=== PATIENT | male | born 1950 | race American Indian/Alaskan Native ===

== ENCOUNTER 2016-07-11 15:48 | Inpatient (IN) | payer MEDICARE, OTHER ==
--- NOTE | 2016-07-11 16:05 | ED PDOC ---
Arrival/HPI - General Time Seen by Provider: 07/11/16 16:01 Historian: Patient - History of Present Illness Narrative History of Present Illness (Text): 07/11/16 16:05 Sukhwinder Lester Jr. is a 66 year old male, whose past medical history includes cardiac stents, prostate cancer, hypertension, and high cholesterol, who presents to the emergency department complaining of persisting chest discomfort for 5 days. Patient states that he feel that "can't digest gas" and has tried drinking club soda, which makes him burp bringing little relief. Patient denies any nausea, vomiting, diarrhea, fever, cough, headache, dizziness, visual changes, urinary symptoms, leg swelling, or any other complaints at this time PMD: Dr. Singh Abalone Fisherman: Dr. Edilberto Johnson Time/Duration: < week Symptom Onset: Gradual Symptom Course: Unchanged Severity Level: Mild Activities at Onset: Rest Context: Home Past Medical History - Provider Review Nursing Documentation Reviewed: Yes - Infectious Disease Hx of Infectious Diseases: None - Tetanus Immunization Tetanus Immunization: Unknown - Cardiac Hx Cardiac Disorders: Yes Hx Hypertension: Yes - Pulmonary Hx Respiratory Disorders: No - Neurological Hx Neurological Disorder: No - HEENT Other/Comment: glasses. - Renal Hx Renal Disorder: No - Endocrine/Metabolic Hx Endocrine Disorders: No - Hematological/Oncological Hx Blood Disorders: No - Integumentary Hx Dermatological Disorder: No - Musculoskeletal/Rheumatological Hx Musculoskeletal Disorders: Yes Hx Osteoarthritis: Yes (legs) - Gastrointestinal Hx Gastrointestinal Disorders: No - Genitourinary/Gynecological Hx Genitourinary Disorders: Yes Hx Prostate Problems: Yes (prostate ca (under treatment)) - Psychiatric Hx Psychophysiologic Disorder: No Hx Substance Use: No - Surgical History Hx Coronary Stent: Yes - Anesthesia Hx Anesthesia: Yes Hx Anesthesia Reactions: No Hx Malignant Hyperthermia: No - Suicidal Assessment Feels Threatened In Home Enviroment: No Family/Social History - Physician Review Nursing Documentation Reviewed: Yes Family/Social History: No Known Family HX Smoking Status: Never Smoked Hx Alcohol Use: Yes Hx Substance Use: No Allergies/Home Meds Allergies/Adverse Reactions: Allergies enalapril Allergy (Verified 07/11/16 16:05) ANGIOEDEMA Home Medications: Home Meds Medication Instructions Recorded Confirmed Atorvastatin [Lipitor] 06/09/14 06/09/14 Carvedilol 12.5 mg PO DAILY 06/09/14 06/15/14 Isosorbide Mononitrate 06/09/14 06/15/14 Multivit,Iron,Min 5/Folic Acid 06/09/14 06/15/14 [Strovite Forte] Spironolactone 25 mg PO DAILY 06/09/14 06/15/14 Tamsulosin [Flomax] 0.4 mg PO DAILY 06/09/14 06/15/14 hydrALAZINE [Apresoline] 25 mg PO DAILY 06/09/14 06/15/14 Review of Systems - Physician Review All systems were reviewed & negative as marked: Yes - Review of Systems Constitutional: absent: Fevers, Night Sweats Eyes: absent: Vision Changes ENT: absent: Hearing Changes Respiratory: absent: SOB, Cough Cardiovascular: Chest Pain (Chest discomfort) Gastrointestinal: absent: Abdominal Pain Genitourinary Male: absent: Urinary Output Changes Musculoskeletal: absent: Arthralgias, Back Pain, Neck Pain Skin: absent: Rash, Pruritis Neurological: absent: Headache, Dizziness Endocrine: absent: Diaphoresis Hemo/Lymphatic: absent: Easy Bleeding Psychiatric: absent: Depression Physical Exam Vital Signs Reviewed: Yes Vital Signs Temp Pulse Resp BP Pulse Ox 07/11/16 17:30 93 H 146/90 07/11/16 17:22 95 H 166/96 H 07/11/16 16:30 101 H 154/102 H 07/11/16 15:59 98.4 F 111 H 15 197/114 H 97 Temperature: Afebrile Blood Pressure: Hypertensive Pulse: Tachycardic Respiratory Rate: Normal Appearance: Positive for: Uncomfortable, Other (obese) Pain Distress: Moderate Mental Status: Positive for: Alert and Oriented X 3 - Systems Exam Head: Present: Atraumatic, Normocephalic Pupils: Present: PERRL Conjunctiva: Present: Normal Mouth: Present: Moist Mucous Membranes Pharnyx: Present: Normal. No: ERYTHEMA, EXUDATE Neck: Present: Normal Range of Motion Respiratory/Chest: Present: Clear to Auscultation, Good Air Exchange. No: Respiratory Distress, Accessory Muscle Use Cardiovascular: Present: Regular Rate and Rhythm, Normal S1, S2, Tachycardic. No: Murmurs Abdomen: Present: Normal Bowel Sounds. No: Tenderness, Distention, Peritoneal Signs Back: Present: Normal Inspection Upper Extremity: Present: Normal Inspection. No: Cyanosis, Edema Lower Extremity: Present: Normal Inspection. No: Edema Neurological: Present: GCS=15, CN II-XII Intact, Speech Normal Skin: Present: Warm, Dry, Normal Color. No: Rashes Psychiatric: Present: Alert, Oriented x 3, Normal Insight, Normal Concentration Medical Decision Making ED Course and Treatment: 07/11/16 16:03 Impression: 66 year old male complaining of persistent chest discomfort for 5 days. Differential Diagnosis included but are not limited to: ACS vs. GERD vs. CHF Plan: -- EKG -- Chest X-ray -- Urinalysis -- Labs -- Pepcid, Lopressor, and Nitrostat -- Reassess and disposition Prior Visits: Notes and results from previous visits were reviewed. Patient last seen in the ED on 11/09/14 for right great toe pain, swelling, and erythema. Patient was discharged home. Progress Notes: EKG: Ordered, reviewed, and independently interpreted the EKG. Rate : 116 BPM Rhythm : Sinus Tachycardia Interpretation : QRS of 114. RI of 240. 1st degree AV block. Left axis deviation with a left anterior vesicular block. Comparison : No ST-T changes compared to 06/09/14 07/11/16 16:40 Patient reports no improvement of chest pain after SL nitro and pepcid. Concern for possible unstable angina. 07/11/16 17:10 Patient with positive cardiac enzyme at 0.62 and now on tridil drip for chest pain. Findings consistent with NSTEMI. Started on heparin drip. 07/11/16 17:[address] Briones, covering Dr. Cortés, who agreed with treatment and plan. Recommends patient to be place into ICU. Case discussed with Dr. Coon for possible admission to ICU. Case discussed with Dr. Guerrero for admission of patient to his service. 07/11/16 18:26 Patient accepted for ICU admission. - Lab Interpretations Lab Results: 07/11/16 16:10 07/11/16 16:10 Lab Results 07/11/16 16:10: Sodium 141, Potassium 3.5 L, Chloride 100, Carbon Dioxide 30, Anion Gap 15, BUN 11, Creatinine 0.9, Est GFR ( Amer) > 60, Est GFR (Non- Af Amer) > 60, Random Glucose 158 H, Calcium 9.5, Magnesium 1.8, Total Bilirubin 1.1, AST 33, ALT 26, Alkaline Phosphatase 79, Lactate Dehydrogenase 516, Total Creatine Kinase 103, Troponin I 0.62 H*, NT-Pro-B Natriuret Pep 1340 H, Total Protein 8.2, Albumin 4.3, Globulin 4.0, Albumin/Globulin Ratio 1.1, Lipase 45 07/11/16 16:10: PT 10.4, INR 0.96, APTT 27.9 07/11/16 16:10: WBC 7.6, RBC 4.11, Hgb 12.6 L, Hct 36.8 L, MCV 89.5, MCH 30.7, MCHC 34.2, RDW 15.1 H, Plt Count 283, MPV 10.3, Gran % 76.6 H, Lymph % (Auto) 17.4 L, Avery % (Auto) 5.2, Eos % (Auto) 0.5 L, Baso % (Auto) 0.3, Gran # 5.85, Lymph # 1.3, Avery # 0.4, Eos # 0.0, Baso # 0.02 - RAD Interpretation Radiology Orders: 07/11/16 16:13 CHEST PORTABLE [RAD] Stat - Medication Orders Current Medication Orders: Heparin Sodium/Sodium Chloride (Heparin 21010 Units/250ml 1/2 Normal Saline) 25 ,000 units in 250 mls @ 11.158 mls/hr IV .[id number] JOSE; 12 UNITS/KG/HR PRN Reason: Protocol Last Admin: 07/11/16 17:47 Dose: 11.158 mls/hr Nitroglycerin/Dextrose (Nitroglycerin 50 Mg/250 Ml D5w) 50 mg in 250 mls @ 1.5 mls/hr IV .Q24H PRN; Protocol; 5 MCG/MIN PRN Reason: Chest pain Last Admin: 07/11/16 17:22 Dose: 1.5 mls/hr Discontinued Medications Al Hydrox/Mg Hydrox/Simethicone (Maalox Plus 30 Ml) 30 ml PO STAT STA Stop: 07/11/16 16:59 Last Admin: 07/11/16 17:30 Dose: 30 ml Aspirin (Aspirin Chewable) 324 mg PO STAT STA Stop: 07/11/16 18:00 Atorvastatin Calcium (Lipitor) 40 mg PO STAT STA Stop: 07/11/16 17:37 Clopidogrel Bisulfate (Plavix) 300 mg PO STAT STA Stop: 07/11/16 17:37 Famotidine (Pepcid) 20 mg IVP STAT STA Stop: 07/11/16 16:15 Last Admin: 07/11/16 16:30 Dose: 20 mg Furosemide (Lasix) 40 mg IVP STAT STA Stop: 07/11/16 17:37 Heparin Sodium (Porcine) (Heparin) 6,500 units 70 units/kg (6500 units) IV ONCE ONE PRN Reason: Protocol Stop: 07/11/16 17:05 Last Admin: 07/11/16 17:30 Dose: 6,500 units Metoprolol Tartrate (Lopressor) 5 mg IVP STAT STA Stop: 07/11/16 16:15 Last Admin: 07/11/16 16:30 Dose: 5 mg Metoprolol Tartrate (Lopressor) 25 mg PO STAT STA Stop: 07/11/16 16:40 Last Admin: 07/11/16 17:30 Dose: 25 mg Metoprolol Tartrate (Lopressor) 25 mg PO BID STA Stop: 07/11/16 17:37 Last Admin: 07/11/16 17:51 Dose: Nitroglycerin (Nitrostat Sl Tab) Confirm Administered Dose 0.4 mg SL .STK-MED ONE Stop: 07/11/16 16:12 Last Admin: 07/11/16 16:19 Dose: 0.4 mg Nitroglycerin (Nitrostat Sl Tab) 0.4 mg SL STAT STA Stop: 07/11/16 16:15 Last Admin: 07/11/16 16:19 Dose: Potassium Chloride (Potassium Chloride Oral Soln) 40 meq PO STAT STA Stop: 07/11/16 17:07 Last Admin: 07/11/16 17:30 Dose: 40 meq - Scribe Statement The provider has reviewed the documentation as recorded by the Penelope Rose Provider Scribe Attestation: All medical record entries made by the Scribe were at my direction and personally dictated by me. I have reviewed the chart and agree that the record accurately reflects my personal performance of the history, physical exam, medical decision making, and the department course for this patient. I have also personally directed, reviewed, and agree with the discharge instructions and disposition. Disposition/Present on Arrival - Present on Arrival Any Indicators Present on Arrival: No History of DVT/PE: No History of Uncontrolled Diabetes: No Urinary Catheter: No History Surgical Site Infection Following: None - Disposition Have Diagnosis and Disposition been Completed?: Yes Diagnosis: Non-STEMI (non-ST elevated myocardial infarction) Disposition: HOSPITALIZED Disposition Time: 17:58 Patient Plan: Admission, ICU Condition: CRITICAL Referrals: Charo Singh MD [Primary Care Provider] - Follow up with primary
[2016-07-11] MEDS ORDERED: Metoprolol 1 mg/ml Inj IVP STA (16:14)
[2016-07-11 16:20] LABS: ADD MANUAL DIFF? NO
[2016-07-11 16:33] LABS: BASO # 0.02 K/mm3 (0.0-2.0); BASO % 0.3 % (0.0-3.0); EOS % 0.5 % (1.5-5.0); GRAN # 5.85 (1.4-6.5); GRAN % 76.6 % (50.0-68.0); HEMATOCRIT 36.8 % (42.0-52.0); LYMPH # 1.3 (1.2-3.4); LYMPH % 17.4 % (22.0-35.0); MEAN CELL VOLUME 89.5 fL (80.0-105.0); MEAN CORPUSCULAR HEMOGLOBIN 30.7 pg (25.0-35.0); MEAN CORPUSCULAR HGB CONC 34.2 g/dl (31.0-37.0); MEAN PLATELET VOLUME 10.3 fl (7.0-11.0); MONO # 0.4 (0.1-0.6); MONO % 5.2 % (1.0-6.0); PLATELET COUNT 283 10^3/uL (120.0-450.0); RED CELL DISTRIBUTION WIDTH 15.1 % (11.5-14.5); WHITE BLOOD COUNT 7.6 10^3/ul (4.5-11.0)
[2016-07-11 16:37] LABS: ALB/GLOB RATIO 1.1 (1.1-1.8); ALKALINE PHOSPHATASE 79 U/L (38-133); ALT/SGPT 26 U/L (7-56); AST/SGOT 33 U/L (15-59); BILIRUBIN,TOTAL 1.1 mg/dL (0.2-1.3); BLOOD UREA NITROGEN 11 mg/dL (7-21); CALCIUM 9.5 mg/dL (8.4-10.5); CARBON DIOXIDE 30 mmol/L (21-33); CHLORIDE 100 mmol/L (98-107); GFR AFRICAN-AMERICAN > 60; GLUCOSE,RANDOM 158 mg/dL (70-110); LIPASE 45 U/L (23-300); MAGNESIUM 1.8 mg/dL (1.7-2.2); POTASSIUM 3.5 mmol/L (3.6-5.0); SODIUM 141 mmol/L (132-148); TOTAL PROTEIN 8.2 g/dL (5.8-8.3)
[2016-07-11 16:40] LABS: INR 0.96 (0.93-1.08); PARTIAL THROMBOPLASTIN TIME 27.9 Seconds (23.7-30.8)
[2016-07-11] MEDS ORDERED: Nitroglycerin 2% Ointment Foilpak UD TOP STA (16:40)
[2016-07-11] MEDS ORDERED: Alum-Mag Hydrox-Simethicone Susp (30 mL) PO STA (16:58)
[2016-07-11 16:59] LABS: TROPONIN I 0.62 ng/mL
[2016-07-11] MEDS ORDERED: Nitroglycerin 50mg in D5W 50 MG/250 ML BOTTLE IV PRN (17:05)
[2016-07-11] MEDS ORDERED: Potassium Chloride 40 mEq/30 ml LIQ UD PO STA (17:06)
[2016-07-11] MEDS ORDERED: Heparin25000 units/250ml 1/2NS 25,000 UNITS/250 ML BAG IV SCH (17:15)
--- NOTE | 2016-07-11 17:45 | CP.PCM.HP ---
<Melisa Orta - Last Filed: 07/12/16 06:35> History of Present Illness - History of Present Illness History of Present Illness: CC: I have gas pain Patient is a 66 y/o AAF with PMH of htn, CAD with 1 stent, chf, prostate ca s/p radiation, CHETAN ( home bipap), hld presenting with chest discomfort for the past 5 days. Patient states the chest discomfort is like gas pain, radiates to the right shoulder and left shoulder. Denies radiation to the back or arm. Patient states currently he doesn't have chest discomfort. Patient states last he felt the "gas" like pain in the midsternal area, then on Sunday, he went to see his advertising sales consultant. The advertising sales consultant did ekg, and check BP and told him to come back for further testing this week. The chest pain transiently resolved up until this Am after having tea and toast he felt the chest discomfort again. Reports he gets sob after walking 1 block, and have difficulty climbing stairs. Denies pillow orthopnea, denies palpitation, fever, chills, n/v/d, denies dysurea, or increased frequency. Admits to hesitancy. PMH: htn, CHF, bph, CAD with 1 stent 3 years ago, prostate ca s/p radiation, CHETAN ( uses home bipap), hld. PSH: cardiac stet 3 yrs ago [facility]: Admits to cardiac and htn history in the family. Social: former pack a day smoker , quit 4 years ago. Denies alcohol or illicit drug use. Lives with spouse. Allergy: Enalapril ( angioedema) Present on Admission - Present on Admission Any Indicators Present on Admission: No History of DVT/PE: No History of Uncontrolled Diabetes: No Urinary Catheter: No Decubitus Ulcer Present: No Review of Systems - Review of Systems All systems: reviewed and no additional remarkable complaints except - Constitutional Constitutional: As Per HPI - EENT Eyes: As Per HPI Nose/Mouth/Throat: As Per HPI - Cardiovascular Cardiovascular: As Per HPI - Respiratory Respiratory: As Per HPI - Gastrointestinal Gastrointestinal: As Per HPI - Genitourinary Genitourinary: As Per HPI - Reproductive: Male Reproductive:Male: As Per HPI - Musculoskeletal Musculoskeletal: As Per HPI - Integumentary Integumentary: As Per HPI - Psychiatric Psychiatric: As Per HPI - Endocrine Endocrine: As Per HPI - Hematologic/Lymphatic Hematologic: As Per HPI Past Patient History - Infectious Disease Hx of Infectious Diseases: None - Tetanus Immunizations Tetanus Immunization: Unknown - Past Medical History & Family History Past Medical History?: Yes - Past Social History Smoking Status: Former Smoker Alcohol: None Drugs: Denies Home Situation {Lives}: With Family - CARDIAC Hx Cardiac Disorders: Yes Hx Hypertension: Yes - PULMONARY Hx Respiratory Disorders: No - NEUROLOGICAL Hx Neurological Disorder: No - HEENT Other/Comment: glasses. - RENAL Hx Chronic Kidney Disease: No - ENDOCRINE/METABOLIC Hx Endocrine Disorders: No - HEMATOLOGICAL/ONCOLOGICAL Hx Blood Disorders: No - INTEGUMENTARY Hx Dermatological Problems: No - MUSCULOSKELETAL/RHEUMATOLOGICAL Hx Musculoskeletal Disorders: Yes Hx Osteoarthritis: Yes (legs) - GASTROINTESTINAL Hx Gastrointestinal Disorders: No - GENITOURINARY/GYNECOLOGICAL Hx Genitourinary Disorders: Yes Hx Prostate Problems: Yes (prostate ca (under treatment)) - PSYCHIATRIC Hx Psychophysiologic Disorder: No Hx Substance Use: No - SURGICAL HISTORY Hx Coronary Stent: Yes - ANESTHESIA Hx Anesthesia: Yes Hx Anesthesia Reactions: No Hx Malignant Hyperthermia: No Meds Allergies/Adverse Reactions: Allergies Allergy/AdvReac Type Severity Reaction Status Date / Time enalapril Allergy ANGIOEDEMA Verified 07/11/16 16:05 Physical Exam - Constitutional Appears: No Acute Distress - Head Exam Head Exam: ATRAUMATIC, NORMAL INSPECTION, NORMOCEPHALIC - Eye Exam Eye Exam: Normal appearance, PERRL. absent: Scleral icterus - ENT Exam ENT Exam: Mucous Membranes Dry - Neck Exam Neck exam: Positive for: Normal Inspection - Respiratory Exam Respiratory Exam: Clear to Auscultation Bilateral, Rales, NORMAL BREATHING PATTERN. absent: Rhonchi, Wheezes, Stridor - Cardiovascular Exam Cardiovascular Exam: Tachycardia, REGULAR RHYTHM, RRR, +S1, +S2. absent: JVD, Rubs, Systolic Murmur - GI/Abdominal Exam GI & Abdominal Exam: Normal Bowel Sounds, Soft. absent: Distended, Firm, Guarding, Rebound, Rigid, Tenderness - Extremities Exam Extremities exam: Positive for: pedal edema. Negative for: tenderness - Back Exam Back exam: NORMAL INSPECTION - Neurological Exam Neurological exam: Alert, Oriented x3 - Psychiatric Exam Psychiatric exam: Normal Affect, Normal Mood - Skin Skin Exam: Dry, Intact, Normal Color, Warm Results - Vital Signs Recent Vital Signs: Last Vital Signs Temp 98.4 F 07/11/16 15:59 Pulse 95 H 07/11/16 17:22 Resp 15 07/11/16 15:59 BP 166/96 H 07/11/16 17:22 Pulse Ox 97 07/11/16 15:59 - Labs Result Diagrams: 07/11/16 16:10 07/11/16 16:10 Labs: Laboratory Results - last 24 hr 07/11/16 07/11/16 07/11/16 16:10 16:10 16:10 WBC 7.6 RBC 4.11 Hgb 12.6 L Hct 36.8 L MCV 89.5 MCH 30.7 MCHC 34.2 RDW 15.1 H Plt Count 283 MPV 10.3 Gran % 76.6 H Lymph % (Auto) 17.4 L [facility] % (Auto) 5.2 Eos % (Auto) 0.5 L Baso % (Auto) 0.3 Gran # 5.85 Lymph # 1.3 [facility] # 0.4 Eos # 0.0 Baso # 0.02 PT 10.4 INR 0.96 APTT 27.9 Sodium 141 Potassium 3.5 L Chloride 100 Carbon Dioxide 30 Anion Gap 15 BUN 11 Creatinine 0.9 Est GFR ( Amer) > 60 Est GFR (Non-Af Amer) > 60 Random Glucose 158 H Calcium 9.5 Magnesium 1.8 Total Bilirubin 1.1 AST 33 ALT 26 Alkaline Phosphatase 79 Lactate Dehydrogenase 516 Total Creatine Kinase 103 Troponin I 0.62 H* NT-Pro-B Natriuret Pep 1340 H Total Protein 8.2 Albumin 4.3 Globulin 4.0 Albumin/Globulin Ratio 1.1 Lipase 45 - EKG Data EKG Interpreted by: Myself (1st degree av block, anterior infarct, lateral ischemia) Rate: Tachycardia Assessment & Plan - Assessment and Plan (Free Text) Assessment: Patient is a 66 y/o AAF with PMH of htn, CAD with 1 stent, prostate ca s/p radiation, CHETAN ( home bipap), hld presenting with chest discomfort for the past 5 days. EKG revealed lateral lead ischemia, troponin elevated. Plan: 1) NSTEMI - Troponin x1 elevated, will continue to trend, - EKG with sinus tachycardia with 1st degree av block, LAFB, anterior infarct and lateral lead ischemia. - Echo ordered, - on nitro drip - on heparin drip - cardio consult -s/p plavix loading dose, asa loading dose - continue po asa 81 mg daily, continue plavix 75 mg daily. - will obtain lipid panel and hgba1c. - npo for possible cardiac cath tomorrow. 2) Hypokalemia- will replete 3) Sleep apnea- BIPAP at night 4) CHF- will continue hydralazine, imdur, spinorolactone, and coreg. 5) BPH- continue flomax. 6) DVT and Gi prophylaxis- protonix and on heparin drip. Patient seen, examined, case discussed with Dr Guerrero. - Date & Time Date: 07/11/16 Time: 17:40 <Mckay Guerrero - Last Filed: 07/28/16 18:45> Results - Vital Signs Recent Vital Signs: Last Vital Signs Temp 98.5 F 07/13/16 06:00 Pulse 77 07/13/16 15:00 Resp 26 H 07/13/16 15:00 BP 128/71 07/13/16 14:01 Pulse Ox 92 L 07/13/16 14:01 - Labs Result Diagrams: 07/13/16 05:30 07/13/16 05:30 Attending/Attestation - Attestation I have personally seen and examined this patient.: Yes I have fully participated in the care of the patient.: Yes I have reviewed all pertinent clinical information: Yes Notes (Text): 07/28/16 18:45 Medical record note made by the resident after discussion with my direction and input after the patient was personally seen and examined by me. I have reviewed the chart and agree that the record accurately reflects by personal performance of the history, physical exam, data review, and medical decision-making, in the course for the patient. I have also personally directed the plan of care.
[2016-07-11 19:35] LABS: PH,URINE 6.5 (4.7-8.0); URINE BILIRUBIN NEGATIVE (NEGATIVE); URINE BLOOD TRACE-LYSED (NEGATIVE); URINE GLUCOSE (UA) NEGATIVE (NEGATIVE); URINE KETONE 15 mg/dL (NEGATIVE); URINE LEUKOCYTE ESTERASE NEGATIVE Leu/uL (NEGATIVE); URINE PROTEIN TRACE mg/dL (<30 mg/dL); URINE UROBILINOGEN 0.2 E.U./dL (<1 E.U./dL)
[2016-07-11 19:39] LABS: URINE APPEARANCE CLEAR (CLEAR); URINE COLOR YELLOW (YELLOW)
[2016-07-11 19:47] LABS: URINE WBC 0 - 2 /hpf (0-6)
--- NOTE | 2016-07-11 19:49 | CON ---
DATE: 07/11/2016 HISTORY OF PRESENT ILLNESS: The patient is a 66-year-old gentleman with history of hyperlipidemia, systolic LV dysfunction/CHF, hypertension who presented with about a week long duration of epigastric discomfort/ indigestion and chest tightness radiating to the right shoulder and sometimes to the back. It was a pressure-like sensation as the patient describes it, associated with some shortness of breath. Each episode lasts for about half an hour or so and then abated only to return shortly thereafter. The episodes were getting more frequent, more significant and culminated in the patient's admission to [facility] ER for further management and evaluation. The patient continued to have chest tightness and nitroglycerin drip was started. EKG showed sinus tachycardia with some questionable anterior left fascicular block. Troponin came back positive and ICU was called for non-ST elevated NC/acute coronary syndrome in the setting of ongoing chest pain. No nausea, no vomiting, no diarrhea, no constipation, no fever, no chills, no sweats. PAST MEDICAL HISTORY: Hypertension, hypercholesterolemia, left ventricular systolic dysfunction, coronary artery disease. ALLERGIES: Enalapril. FAMILY HISTORY: Noncontributory. SOCIAL HISTORY: The patient is an ex-smoker. No alcohol or illicit drug abuse. REVIEW OF SYSTEMS: Revealed 12 organ system other than mentioned in history of present illness is negative. MEDICATIONS: Hydralazine 25 mg p.o. daily, Flomax, spironolactone 25 mg p.o. daily, multivitamins, isosorbide mononitrate, Motrin, Coreg, Lipitor. PHYSICAL EXAMINATION: VITAL SIGNS: Heart rate 92, temperature 98.4, blood pressure 157/103, respiratory rate 17, oxygen saturation 100% on 2 liters nasal cannula. HEAD AND NECK: Atraumatic. LUNGS: Clear to auscultation bilaterally. HEART: Regular rate and rhythm. S1, S2 normal. ABDOMEN: Soft, nontender, nondistended. MUSCULOSKELETAL: No C/C/E. NEUROLOGIC: The patient moves all extremities spontaneously. SKIN: Moist. PSYCHIATRIC: The patient is alert and oriented x 3. LABORATORY DATA: WBC 7.6, hemoglobin 12.6, platelet count 283. Sodium 141, potassium 3.5, chloride 100, carbon dioxide 30, BUN 11, creatinine 0.9, glucose 158, AST 33, ALT 26. Troponin 0.62, proBNP 1340. INR 0.96. Chest x-ray showed no active pulmonary disease. ASSESSMENT AND PLAN: This is a 66-year-old gentleman with non-ST elevated NC/ ACS in the setting of ongoing chest pain. At present time, I agree with nitroglycerin, beta blockers, statins, therapeutic anticoagulation and dual antiplatelet therapy. The patient would need cardiac evaluation for consideration of coronary angiography and potentially PCI. We will continue to target euvolemia, euglycemia, normothermia and oxygen saturation more than 90%. We will continue with DVT and GI prophylaxis. Echocardiogram. ccm time 40 min Bunny Coon MD cc: [id number] TT: 07/11/2016 19:49:04 Confirmation # [id number] Dictation # [id number]
[2016-07-11 22:01] VITALS: BMI 33.5
[2016-07-11] MEDS ORDERED: Pneumococcal 23-Valent Vaccine IM ONE (22:02)
--- NOTE | 2016-07-12 01:31 | CARD ---
APPROVED REPORT EKG Measurement Heart [id number] <Conclusion> Sinus tachycardia with 1st degree AV block Left anterior fascicular block Cannot rule out Anterior infarct, age undetermined ST & T wave abnormality, consider lateral ischemia Abnormal ECG
[2016-07-12 02:10] LABS: TROPONIN I 7.69 ng/mL
--- NOTE | 2016-07-12 06:40 | CP.PCM.PN ---
<Melisa Orta - Last Filed: 07/12/16 15:42> Subjective - Date & Time of Evaluation Date of Evaluation: 07/12/16 Time of Evaluation: 07:15 - Subjective Subjective: Medicine progress note for Dr Lockhart and Dr Guerrero service Patient with no acute events overnight. Patient still on nitro drip and heparin drip. CP resolved. Denies sob while lying flat. Speaking in full sentences. Denies fever, chills, n/v/d. Objective - Vital Signs/Intake and Output Vital Signs (last 24 hours): Temp Pulse Resp BP Pulse Ox 99 F 86 22 158/92 H 92 L 07/12/16 04:00 07/12/16 05:00 07/12/16 05:00 07/12/16 05:31 07/12/16 05:31 Intake and Output: 07/11/16 07/12/16 18:59 06:59 Intake Total 300 Output Total 600 Balance -300 - Medications Medications: Current Medications Atorvastatin Calcium (Lipitor) 40 mg PO DIN COUNTS INCLUDE 234 BEDS AT THE [facility] Carvedilol (Coreg) 12.5 mg PO BID COUNTS INCLUDE 234 BEDS AT THE [facility] Clopidogrel Bisulfate (Plavix) 75 mg PO DAILY COUNTS INCLUDE 234 BEDS AT THE [facility] Hydralazine HCl (Apresoline) 25 mg PO DAILY COUNTS INCLUDE 234 BEDS AT THE [facility] Hydralazine HCl (Apresoline) 10 mg IVP Q4H PRN PRN Reason: Systolic Blood Pressure Heparin Sodium/Sodium Chloride (Heparin 14166 Units/250ml 1/2 Normal Saline) 25 ,000 units in 250 mls @ 11.158 mls/hr IV .[id number] JOSE; 12 UNITS/KG/HR PRN Reason: Protocol Last Titration: 07/12/16 01:22 Dose: 14 units/kg/hr, 13.018 mls/hr Nitroglycerin/Dextrose (Nitroglycerin 50 Mg/250 Ml D5w) 50 mg in 250 mls @ 1.5 mls/hr IV .Q24H PRN; Protocol; 5 MCG/MIN PRN Reason: Chest pain Last Titration: 07/12/16 01:01 Dose: 20 mcg/min, 6 mls/hr Isosorbide Mononitrate (Ismo) 20 mg PO BID COUNTS INCLUDE 234 BEDS AT THE [facility] Pantoprazole Sodium (Protonix Ec Tab) 40 mg PO 0630 COUNTS INCLUDE 234 BEDS AT THE [facility] Spironolactone (Aldactone) 25 mg PO DAILY COUNTS INCLUDE 234 BEDS AT THE [facility] Tamsulosin HCl (Flomax) 0.4 mg PO DAILY JOSE - Labs Labs: PT 10.4 Seconds (9.9-11.8) 07/11/16 16:10 INR 0.96 (0.93-1.08) 07/11/16 16:10 APTT 49.3 Seconds (23.7-30.8) H 07/12/16 05:30 - Constitutional Appears: No Acute Distress - Head Exam Head Exam: ATRAUMATIC, NORMAL INSPECTION, NORMOCEPHALIC - Eye Exam Eye Exam: Normal appearance, PERRL. absent: Scleral icterus - ENT Exam ENT Exam: Mucous Membranes Dry - Neck Exam Neck Exam: Normal Inspection - Respiratory Exam Respiratory Exam: Clear to Ausculation Bilateral, NORMAL BREATHING PATTERN. absent: Rales, Rhonchi, Wheezes, Respiratory Distress, Stridor - Cardiovascular Exam Cardiovascular Exam: REGULAR RHYTHM, RRR, +S1, +S2. absent: Irregular Rhythm, Murmur - GI/Abdominal Exam GI & Abdominal Exam: Soft, Normal Bowel Sounds. absent: Distended, Firm, Guarding, Rigid, Tenderness - Extremities Exam Extremities Exam: Normal Inspection - Back Exam Back Exam: NORMAL INSPECTION - Neurological Exam Neurological Exam: Alert, Awake, Oriented x3 - Psychiatric Exam Psychiatric exam: Normal Affect, Normal Mood - Skin Skin Exam: Dry, Intact, Normal Color, Warm Assessment and Plan - Assessment and Plan (Free Text) Assessment: Patient is a 66 y/o AAF with PMH of htn, CAD with 1 stent, prostate ca s/p radiation, CHETAN ( home bipap), hld presenting with chest discomfort for the past 5 days. EKG revealed lateral lead ischemia, troponin elevated x3. Going to cardiac cath today. Plan: 1) NSTEMI - Troponin and CKMB elevated x3 - EKG with sinus tachycardia with 1st degree av block, LAFB, anterior infarct and lateral lead ischemia. - Echo pending - on nitro drip - on heparin drip, to be held at noon. - LDL 188 - continue asa 81 mg daily, plavix 75 mg and Lipitor 40 mg. - scheduled for cardiac cath today 2) Newly diagnosed DM type 2 - hgba1c of 8.2 - will start ISS, accu checks achs. - diabetic aducation - patient will need at least a basal insulin prior to discharge. 3) Hypokalemia- will replete and continue to monitor. 4) Sleep apnea- BIPAP at night 5) CHF- will continue hydralazine, imdur, spinorolactone, and coreg. 5) BPH- continue flomax. 6) DVT and Gi prophylaxis- protonix and on heparin drip. Patient seen, examined, case discussed with Dr Guerrero. <Mckay Guerrero - Last Filed: 07/15/16 16:30> Objective - Vital Signs/Intake and Output Vital Signs (last 24 hours): Temp Pulse Resp BP Pulse Ox 98.5 F 77 26 H 128/71 92 L 07/13/16 06:00 07/13/16 15:00 07/13/16 15:00 07/13/16 14:01 07/13/16 14:01 - Labs Labs: 07/13/16 05:30 07/13/16 05:30 PT 10.4 Seconds (9.9-11.8) 07/11/16 16:10 INR 0.96 (0.93-1.08) 07/11/16 16:10 APTT 33.7 Seconds (23.7-30.8) H 07/12/16 18:38 Attending/Attestation - Attestation I have personally seen and examined this patient.: Yes I have fully participated in the care of the patient.: Yes I have reviewed all pertinent clinical information, including history, physical exam and plan: Yes Notes (Text): 07/15/16 16:30 Medical record note made by the resident after discussion with my direction and input after the patient was personally seen and examined by me. I have reviewed the chart and agree that the record accurately reflects by personal performance of the history, physical exam, data review, and medical decision-making, in the course for the patient. I have also personally directed the plan of care.
[2016-07-12 06:57] LABS: ADD MANUAL DIFF? NO
[2016-07-12 07:03] LABS: BASO # 0.02 K/mm3 (0.0-2.0); BASO % 0.2 % (0.0-3.0); EOS # 0.1 (0.0-0.7); EOS % 1.2 % (1.5-5.0); GRAN # 5.71 (1.4-6.5); LYMPH # 1.9 (1.2-3.4); MEAN CELL VOLUME 90.2 fL (80.0-105.0); MEAN CORPUSCULAR HEMOGLOBIN 29.8 pg (25.0-35.0); MEAN PLATELET VOLUME 9.8 fl (7.0-11.0); MONO # 0.7 (0.1-0.6); MONO % 8.6 % (1.0-6.0); PLATELET COUNT 258 10^3/uL (120.0-450.0); RED CELL DISTRIBUTION WIDTH 15.3 % (11.5-14.5); WHITE BLOOD COUNT 8.4 10^3/ul (4.5-11.0)
[2016-07-12 07:19] LABS: ALKALINE PHOSPHATASE 70 U/L (38-133); ALT/SGPT 31 U/L (7-56); AST/SGOT 90 U/L (15-59); BILIRUBIN,TOTAL 1.2 mg/dL (0.2-1.3); BLOOD UREA NITROGEN 12 mg/dL (7-21); CALCIUM 9.1 mg/dL (8.4-10.5); CARBON DIOXIDE 33 mmol/L (21-33); CHLORIDE 99 mmol/L (98-107); CHOLESTEROL 257 mg/dL (130-200); GFR AFRICAN-AMERICAN > 60; GLUCOSE,RANDOM 166 mg/dL (70-110); MAGNESIUM 1.8 mg/dL (1.7-2.2); POTASSIUM 3.6 mmol/L (3.6-5.0); SODIUM 140 mmol/L (132-148); TOTAL PROTEIN 7.7 g/dL (5.8-8.3)
--- NOTE | 2016-07-12 07:57 | CP.CCUPN ---
<Jacque Hebert - Last Filed: 07/12/16 10:10> CCU Subjective - Physician Review Events Since Last Encounter (Free Text): 07/12/16 07:55 stable overnight Subjective (Free Text): 07/12/16 07:55 Critical care progress note for Dr. Coon-Jacque Hebert, PGY-1 Pt S & E at bedside. Pt reports chest tightness overnight. Denies N/V/F/C, SOB, CP, palpitations, BURTON , vision changes, hx of GI bleed. Pt stable on heparin and nitroglycerin drips overnight. CCU Objective - Vital Signs / Intake & Output Vital Signs (Last 4 hours): Vital Signs Temp Pulse Resp BP Pulse Ox 07/12/16 05:31 158/92 H 92 L 07/12/16 05:00 86 22 156/95 H 96 07/12/16 04:30 78 27 H 153/88 H 97 07/12/16 04:00 99 F 70 21 137/71 93 L Intake and Output (Last 8hrs): Intake & Output 07/11/16 07/12/16 07/12/16 22:59 06:59 14:59 Intake Total 300 Output Total 600 Balance -300 Weight 94.075 kg 93.894 kg Intake: IV 200 Left Antecubital 130 Left Hand 60 Oral 100 Output: Urine 600 Urine, Voided 600 Other: Voiding Method Urinal # Voids Urine, Voided 3 # Bowel Movements 0 - Physical Exam Head: Positive for: Atraumatic, Normocephalic Pupils: Positive for: PERRL Extroacular Muscles: Positive for: EOMI Conjunctiva: Positive for: Normal Mouth: Positive for: Moist Mucous Membranes Pharnyx: Positive for: Normal. Negative for: ERYTHEMA, EXUDATE Neck: Positive for: Normal Range of Motion Respiratory/Chest: Positive for: Clear to Auscultation, Good Air Exchange. Negative for: Respiratory Distress, Accessory Muscle Use Cardiovascular: Positive for: Regular Rate and Rhythm, Normal S1, S2, Tachycardic. Negative for: Murmurs Abdomen: Positive for: Normal Bowel Sounds. Negative for: Tenderness, Distention, Peritoneal Signs Back: Positive for: Normal Inspection Upper Extremity: Positive for: Normal Inspection. Negative for: Cyanosis, Edema Lower Extremity: Positive for: Normal Inspection. Negative for: Edema, Tenderness, Swelling, Erythema Neurological: Positive for: GCS=15, CN II-XII Intact, Speech Normal Skin: Positive for: Warm, Dry, Normal Color. Negative for: Rashes Psychiatric: Positive for: Alert, Oriented x 3, Normal Insight, Normal Concentration - Medications Active Medications: Active Medications Generic Name Dose Route Start Last Admin Trade Name Freq PRN Reason Stop Dose Admin Aspirin 81 mg 07/12/16 10:00 Aspirin Chewable PO DAILY [facility] Atorvastatin Calcium 40 mg 07/12/16 17:00 Lipitor PO DIN [facility] Carvedilol 12.5 mg 07/12/16 10:00 Coreg PO BID [facility] Clopidogrel Bisulfate 75 mg 07/12/16 10:00 Plavix PO DAILY [facility] Hydralazine HCl 25 mg 07/12/16 10:00 Apresoline PO DAILY [facility] Hydralazine HCl 10 mg 07/11/16 21:42 Apresoline IVP Q4H PRN Systolic Blood Pressure Heparin Sodium/Sodium Chloride 25,000 units in 250 mls @ 11.158 mls/hr 17:15 07/12/16 01:22 Heparin 28604 Units/250ml 1/2 Normal Saline IV 14 units/kg/hr .[id number] JOSE 13.018 mls/hr Protocol Titration 12 UNITS/KG/HR Nitroglycerin/Dextrose 50 mg in 250 mls @ 1.5 mls/hr 07/11/16 17:05 07/12/16 01:01 Nitroglycerin 50 Mg/250 Ml D5w IV 20 mcg/min .Q24H PRN 6 mls/hr Chest pain Titration Protocol 5 MCG/MIN Isosorbide Mononitrate 20 mg 07/12/16 10:00 Ismo PO BID [facility] Pantoprazole Sodium 40 mg 07/12/16 06:30 Protonix Ec Tab PO 0630 [facility] Spironolactone 25 mg 07/12/16 10:00 Aldactone PO DAILY [facility] Tamsulosin HCl 0.4 mg 07/12/16 10:00 Flomax PO DAILY [facility] - Patient Studies Lab Studies: Lab Studies 07/12/16 07/12/16 07/12/16 Range/Units 06:50 06:50 05:30 WBC 8.4 (4.5-11.0) 10^3/ul RBC 4.10 (3.5-6.1) 10^6/uL Hgb 12.2 L (14.0-18.0) gm/dL Hct 37.0 L (42.0-52.0) % MCV 90.2 (80.0-105.0) fL MCH 29.8 (25.0-35.0) pg MCHC 33.0 (31.0-37.0) g/dl RDW 15.3 H (11.5-14.5) % Plt Count 258 (120.0-450.0) 10^3/uL MPV 9.8 (7.0-11.0) fl Gran % 68.0 (50.0-68.0) % Lymph % (Auto) 22.0 (22.0-35.0) % [place] % (Auto) 8.6 H (1.0-6.0) % Eos % (Auto) 1.2 L (1.5-5.0) % Baso % (Auto) 0.2 (0.0-3.0) % Gran # 5.71 (1.4-6.5) Lymph # 1.9 (1.2-3.4) [place]k # 0.7 H (0.1-0.6) Eos # 0.1 (0.0-0.7) Baso # 0.02 (0.0-2.0) K/mm3 APTT 49.3 H (23.7-30.8) Seconds Sodium 140 (132-148) mmol/L Potassium 3.6 (3.6-5.0) mmol/L Chloride 99 (98-107) mmol/L Carbon Dioxide 33 (21-33) mmol/L Anion Gap 12 (10-20) BUN 12 (7-21) mg/dL Creatinine 1.0 (0.5-1.4) mg/dL Est GFR ( Amer) > 60 Est GFR (Non-Af Amer) > 60 Random Glucose 166 H (70-110) mg/dL Calcium 9.1 (8.4-10.5) mg/dL Magnesium 1.8 (1.7-2.2) mg/dL Total Bilirubin 1.2 (0.2-1.3) mg/dL AST 90 H (15-59) U/L ALT 31 (7-56) U/L Alkaline Phosphatase 70 (38-133) U/L Lactate Dehydrogenase (333-699) U/L Total Creatine Kinase (35-230) U/L CK-MB (CK-2) (0.0-3.6) ng/mL CK-MB (CK-2) % (2.5-3.0) % Troponin I ng/mL Total Protein 7.7 (5.8-8.3) g/dL Albumin 3.9 (3.0-4.8) g/dL Globulin 3.8 gm/dL Albumin/Globulin Ratio 1.0 L (1.1-1.8) Triglycerides 150 (35-160) mg/dL Cholesterol 257 H (130-200) mg/dL LDL Cholesterol Direct 188 H (0-129) mg/dL HDL Cholesterol 43 (29-60) mg/dL Urine Color (YELLOW) Urine Appearance (CLEAR) Urine pH (4.7-8.0) Ur Specific [place] (1.005-1.035) Urine Protein (<30 mg/dL) mg/dL Urine Glucose (UA) (NEGATIVE) mg/dL Urine Ketones (NEGATIVE) mg/dL Urine Blood (NEGATIVE) Urine Nitrate (NEGATIVE) Urine Bilirubin (NEGATIVE) Urine Urobilinogen (<1 E.U./dL) E.U./dL Ur Leukocyte Esterase (NEGATIVE) Cordell/uL Urine RBC (0-2) /hpf Urine WBC (0-6) /hpf Ur Epithelial Cells (0-5) /hpf 07/12/16 07/12/16 07/11/16 Range/Units 00:15 00:15 19:20 WBC (4.5-11.0) 10^3/ul RBC (3.5-6.1) 10^6/uL Hgb (14.0-18.0) gm/dL Hct (42.0-52.0) % MCV (80.0-105.0) fL MCH (25.0-35.0) pg MCHC (31.0-37.0) g/dl RDW (11.5-14.5) % Plt Count (120.0-450.0) 10^3/uL MPV (7.0-11.0) fl Gran % (50.0-68.0) % Lymph % (Auto) (22.0-35.0) % [place] % (Auto) (1.0-6.0) % Eos % (Auto) (1.5-5.0) % Baso % (Auto) (0.0-3.0) % Gran # (1.4-6.5) Lymph # (1.2-3.4) [place]k # (0.1-0.6) Eos # (0.0-0.7) Baso # (0.0-2.0) K/mm3 APTT 36.6 H (23.7-30.8) Seconds Sodium (132-148) mmol/L Potassium (3.6-5.0) mmol/L Chloride (98-107) mmol/L Carbon Dioxide (21-33) mmol/L Anion Gap (10-20) BUN (7-21) mg/dL Creatinine (0.5-1.4) mg/dL Est GFR ( Amer) Est GFR (Non-Af Amer) Random Glucose (70-110) mg/dL Calcium (8.4-10.5) mg/dL Magnesium (1.7-2.2) mg/dL Total Bilirubin (0.2-1.3) mg/dL AST (15-59) U/L ALT (7-56) U/L Alkaline Phosphatase (38-133) U/L Lactate Dehydrogenase 624 (333-699) U/L Total Creatine Kinase 379 H (35-230) U/L CK-MB (CK-2) 37.0 H (0.0-3.6) ng/mL CK-MB (CK-2) % 9.8 H (2.5-3.0) % Troponin I 7.69 H* D ng/mL Total Protein (5.8-8.3) g/dL Albumin (3.0-4.8) g/dL Globulin gm/dL Albumin/Globulin Ratio (1.1-1.8) Triglycerides (35-160) mg/dL Cholesterol (130-200) mg/dL LDL Cholesterol Direct (0-129) mg/dL HDL Cholesterol (29-60) mg/dL Urine Color Yellow (YELLOW) Urine Appearance Clear (CLEAR) Urine pH 6.5 (4.7-8.0) Ur Specific [place] 1.015 (1.005-1.035) Urine Protein Trace H (<30 mg/dL) mg/dL Urine Glucose (UA) Negative (NEGATIVE) mg/dL Urine Ketones 15 H (NEGATIVE) mg/dL Urine Blood Trace-lysed H (NEGATIVE) Urine Nitrate Negative (NEGATIVE) Urine Bilirubin Negative (NEGATIVE) Urine Urobilinogen 0.2 (<1 E.U./dL) E.U./dL Ur Leukocyte Esterase Negative (NEGATIVE) Cordell/uL Urine RBC 2 - 5 (0-2) /hpf Urine WBC 0 - 2 (0-6) /hpf Ur Epithelial Cells 10 - 12 (0-5) /hpf Laboratory Results - last 24 hr 07/11/16 07/12/16 07/12/16 19:20 00:15 00:15 WBC RBC Hgb Hct MCV MCH MCHC RDW Plt Count MPV Gran % Lymph % (Auto) [place] % (Auto) Eos % (Auto) Baso % (Auto) Gran # Lymph # [place] # Eos # Baso # APTT 36.6 H Sodium Potassium Chloride Carbon Dioxide Anion Gap BUN Creatinine Est GFR ( Amer) Est GFR (Non-Af Amer) Random Glucose Calcium Magnesium Total Bilirubin AST ALT Alkaline Phosphatase Lactate Dehydrogenase 624 Total Creatine Kinase 379 H CK-MB (CK-2) 37.0 H CK-MB (CK-2) % 9.8 H Troponin I 7.69 H* D Total Protein Albumin Globulin Albumin/Globulin Ratio Triglycerides Cholesterol LDL Cholesterol Direct HDL Cholesterol Urine Color Yellow Urine Appearance Clear Urine pH 6.5 Ur Specific [place] 1.015 Urine Protein Trace H Urine Glucose (UA) Negative Urine Ketones 15 H Urine Blood Trace-lysed H Urine Nitrate Negative Urine Bilirubin Negative Urine Urobilinogen 0.2 Ur Leukocyte Esterase Negative Urine RBC 2 - 5 Urine WBC 0 - 2 Ur Epithelial Cells 10 - 12 07/12/16 07/12/16 07/12/16 05:30 06:50 06:50 WBC 8.4 RBC 4.10 Hgb 12.2 L Hct 37.0 L MCV 90.2 MCH 29.8 MCHC 33.0 RDW 15.3 H Plt Count 258 MPV 9.8 Gran % 68.0 Lymph % (Auto) 22.0 [place]k % (Auto) 8.6 H Eos % (Auto) 1.2 L Baso % (Auto) 0.2 Gran # 5.71 Lymph # 1.9 [place]k # 0.7 H Eos # 0.1 Baso # 0.02 APTT 49.3 H Sodium 140 Potassium 3.6 Chloride 99 Carbon Dioxide 33 Anion Gap 12 BUN 12 Creatinine 1.0 Est GFR ( Amer) > 60 Est GFR (Non-Af Amer) > 60 Random Glucose 166 H Calcium 9.1 Magnesium 1.8 Total Bilirubin 1.2 AST 90 H ALT 31 Alkaline Phosphatase 70 Lactate Dehydrogenase Total Creatine Kinase CK-MB (CK-2) CK-MB (CK-2) % Troponin I Total Protein 7.7 Albumin 3.9 Globulin 3.8 Albumin/Globulin Ratio 1.0 L Triglycerides 150 Cholesterol 257 H LDL Cholesterol Direct 188 H HDL Cholesterol 43 Urine Color Urine Appearance Urine pH Ur Specific [place] Urine Protein Urine Glucose (UA) Urine Ketones Urine Blood Urine Nitrate Urine Bilirubin Urine Urobilinogen Ur Leukocyte Esterase Urine RBC Urine WBC Ur Epithelial Cells EKG/Cardiology Studies: Cardiology / EKG Studies 07/12/16 07:00 EKG [ELECTROCARDIOGRAM] Routine Comment: Reason For Exam: NSTEMI Review of Systems - Review of Systems All systems: reviewed and no additional remarkable complaints except - Constitutional Constitutional: absent: Fever, Chills - EENT Eyes: UNREMARKABLE Nose/Mouth/Throat: UNREMARKABLE. absent: Sore Throat - Cardiovascular Cardiovascular: Chest Pain, Chest Pain at Rest, Chest Pain with Activity. absent: Edema, Leg Edema, Palpitations, Pedal Edema - Respiratory Respiratory: UNREMARKABLE. absent: Cough - Gastrointestinal Gastrointestinal: absent: Abdominal Pain, Hematemesis, Hematochezia, Melena, Nausea, Vomiting - Musculoskeletal Musculoskeletal: UNREMARKABLE. absent: Neck Pain, Radiating Pain into Limb - Neurological Neurological: UNREMARKABLE. absent: Headaches Critical Care Progress Note - Extremities/Vascular Does the Patient have a Central Venous Catheter?: No Does the Patient need a Central Venous Catheter?: No Does the Patient have a Barney Catheter?: No Does the Patient need a Barney Catheter?: No - Prophylaxis GI Prophylaxis GI: PPI - Prophylaxis DVT Prophylaxis DVT: Heparin SQ (drip) - Nutrition Nutrition: Nutrition Category Date Time Status NPO Diet [DIET] Diets 07/12/16 Breakfast Ordered Assessment/Plan - Assessment and Plan (Free Text) Assessment: 66M w/PMH sig for HTN, CHF, BPH, CAD w.stent x1 (2013) on ASA and Plavix at home , prostate CA s/p radiation, CHETAN ( uses home bipap), HLD admitted to ICU for unstable angina, on Heparin and nitroglycerin drip overnight. Pt for PCI today with cardiology at noon. Plan: Neuro AOx 3 Stable CVS hx CHF, HTN, CAD w/stent x 1 (2013), HLD Trop pos x 3 (0.62, 7.69, 14.4)- up trending BNP 1,340 ASA 81mg QD Lipitor 40mg DIN Coreg 12.5mg PO BID Plavix 75mg PO QD Imdur 20mg PO BID Aldactone 25mg Po QD Hydralazine 10mg IVP Q4H PRN Cont Heparin drip- to be stopped at 0930am today for PCI at noon Cont Nitro drip at 5mcg/min FU echo Cards consulted- pt for PCI at noon, Heparin drip to be held at noon Resp Hx CHETAN ( uses home bipap) O2 via NC Target SaO2 >94% Bipap PRN Stable Nephro BUN 12 Cr 1.0 Electrolytes WNL Montior Target euvolemia GI NPO for PCI today Will re-start HHD diet after procedure Monitor Hx BPH, prostate CA s/p radiation Flomax 0.4mg PO QD Monitor Endo BMI 93.9 BS 166 Target BS 140-180 per NICE sugar trial Heme Hgb 12.2 Hct 37 Currently on heparin drip- to be stopped at 0930 for procedure PTT 49.3 at 0530AM Stable Monitor MSK Ambulatory Monitor ID Afebrile No leukocytosis Stable Monitor GI/DVT ppx Heparin drip Protonix Dispo Heparin drip to be stopped at 0930 for PCI at noon Ntg drip to be stopped as per cardiology Will monitor in ICU s/p procedure DW attending - Date & Time Date: 07/12/16 Time: 07:30 <Bunny Coon - Last Filed: 07/12/16 17:36> CCU Objective - Vital Signs / Intake & Output Vital Signs (Last 4 hours): Vital Signs Temp Pulse Resp BP Pulse Ox 07/12/16 17:19 98.5 F 07/12/16 17:09 68 26 H 07/12/16 17:08 74 19 07/12/16 17:00 79 43 H 95 07/12/16 16:45 73 21 118/65 89 L 07/12/16 16:30 64 24 115/59 L 96 07/12/16 16:15 61 21 114/54 L 94 L 07/12/16 16:00 63 22 112/54 L 95 07/12/16 15:49 58 L 18 102/53 L 96 07/12/16 15:45 56 L 19 98/59 L 91 L 07/12/16 15:30 73 18 108/68 96 07/12/16 15:15 66 17 120/74 100 07/12/16 15:00 69 124/70 99 07/12/16 14:45 61 20 115/73 98 07/12/16 14:30 65 19 109/72 97 07/12/16 14:15 64 21 110/67 98 07/12/16 14:00 66 18 109/68 91 L 07/12/16 13:52 69 26 H 104/67 98 07/12/16 13:51 20 93 L Intake and Output (Last 8hrs): Intake & Output 07/12/16 07/12/16 07/12/16 06:59 14:59 22:59 Intake Total 300 125 Output Total 600 Balance -300 125 Weight 207 lb 204 lb 3 oz Intake: IV 200 125 Left Antecubital 130 Left Hand 60 Oral 100 Output: Urine 600 Urine, Voided 600 Other: # Voids Urine, Voided 3 # Bowel Movements 0 - Medications Active Medications: Active Medications Generic Name Dose Route Start Last Admin Trade Name Bensonq PRN Reason Stop Dose Admin Aspirin 81 mg 07/13/16 10:00 Ecotrin PO DAILY [facility] Atorvastatin Calcium 40 mg 07/12/16 17:00 Lipitor PO DIN [facility] Carvedilol 12.5 mg 07/12/16 10:00 07/12/16 08:48 Coreg PO 12.5 mg BID [facility] Administration Clopidogrel Bisulfate 75 mg 07/12/16 10:00 07/12/16 08:50 Plavix PO 75 mg DAILY [facility] Administration Hydralazine HCl 25 mg 07/12/16 10:00 07/12/16 08:50 Apresoline PO 25 mg DAILY [facility] Administration Hydralazine HCl 10 mg 07/11/16 21:42 Apresoline IVP Q4H PRN Systolic Blood Pressure Heparin Sodium/Sodium Chloride 25,000 units in 250 mls @ 11.158 mls/hr 17:15 07/12/16 09:26 Heparin 15343 Units/250ml 1/2 Normal Saline IV 0 units/kg/hr .[id number] JOSE 0 mls/hr Protocol Titration 12 UNITS/KG/HR Sodium Chloride 1,000 mls @ 100 mls/hr 07/12/16 13:45 07/12/16 02:15 Sodium Chloride 0.9% IV 07/12/16 19:00 100 mls/hr .Q10H JOSE Administration Insulin Human Lispro 0 units 07/12/16 16:30 Humalog Low SC ACHS [facility] Protocol Isosorbide Mononitrate 20 mg 07/12/16 10:00 07/12/16 14:58 Ismo PO Not Given BID [facility] Pantoprazole Sodium 40 mg 07/12/16 06:30 07/12/16 08:51 Protonix Ec Tab PO 40 mg 0630 [facility] Administration Spironolactone 25 mg 07/12/16 10:00 Aldactone PO DAILY [facility] Tamsulosin HCl 0.4 mg 07/12/16 10:00 07/12/16 08:49 Flomax PO 0.4 mg DAILY [facility] Administration - Patient Studies Lab Studies: Lab Studies 07/12/16 07/12/16 07/12/16 Range/Units 06:50 06:50 06:50 WBC 8.4 (4.5-11.0) 10^3/ul RBC 4.10 (3.5-6.1) 10^6/uL Hgb 12.2 L (14.0-18.0) gm/dL Hct 37.0 L (42.0-52.0) % MCV 90.2 (80.0-105.0) fL MCH 29.8 (25.0-35.0) pg MCHC 33.0 (31.0-37.0) g/dl RDW 15.3 H (11.5-14.5) % Plt Count 258 (120.0-450.0) 10^3/uL MPV 9.8 (7.0-11.0) fl Gran % 68.0 (50.0-68.0) % Lymph % (Auto) 22.0 (22.0-35.0) % [place] % (Auto) 8.6 H (1.0-6.0) % Eos % (Auto) 1.2 L (1.5-5.0) % Baso % (Auto) 0.2 (0.0-3.0) % Gran # 5.71 (1.4-6.5) Lymph # 1.9 (1.2-3.4) [place]k # 0.7 H (0.1-0.6) Eos # 0.1 (0.0-0.7) Baso # 0.02 (0.0-2.0) K/mm3 APTT (23.7-30.8) Seconds Sodium 140 (132-148) mmol/L Potassium 3.6 (3.6-5.0) mmol/L Chloride 99 (98-107) mmol/L Carbon Dioxide 33 (21-33) mmol/L Anion Gap 12 (10-20) BUN 12 (7-21) mg/dL Creatinine 1.0 (0.5-1.4) mg/dL Est GFR ( Amer) > 60 Est GFR (Non-Af Amer) > 60 Random Glucose 166 H (70-110) mg/dL Hemoglobin A1c 8.2 H (4.2-6.5) % Calcium 9.1 (8.4-10.5) mg/dL Magnesium 1.8 (1.7-2.2) mg/dL Total Bilirubin 1.2 (0.2-1.3) mg/dL AST 90 H (15-59) U/L ALT 31 (7-56) U/L Alkaline Phosphatase 70 (38-133) U/L Lactate Dehydrogenase (333-699) U/L Total Creatine Kinase (35-230) U/L CK-MB (CK-2) (0.0-3.6) ng/mL CK-MB (CK-2) % (2.5-3.0) % Troponin I ng/mL Total Protein 7.7 (5.8-8.3) g/dL Albumin 3.9 (3.0-4.8) g/dL Globulin 3.8 gm/dL Albumin/Globulin Ratio 1.0 L (1.1-1.8) Triglycerides 150 (35-160) mg/dL Cholesterol 257 H (130-200) mg/dL LDL Cholesterol Direct 188 H (0-129) mg/dL HDL Cholesterol 43 (29-60) mg/dL Urine Color (YELLOW) Urine Appearance (CLEAR) Urine pH (4.7-8.0) Ur Specific [place] (1.005-1.035) Urine Protein (<30 mg/dL) mg/dL Urine Glucose (UA) (NEGATIVE) mg/dL Urine Ketones (NEGATIVE) mg/dL Urine Blood (NEGATIVE) Urine Nitrate (NEGATIVE) Urine Bilirubin (NEGATIVE) Urine Urobilinogen (<1 E.U./dL) E.U./dL Ur Leukocyte Esterase (NEGATIVE) Cordell/uL Urine RBC (0-2) /hpf Urine WBC (0-6) /hpf Ur Epithelial Cells (0-5) /hpf 07/12/16 07/12/16 07/12/16 Range/Units 06:30 05:30 00:15 WBC (4.5-11.0) 10^3/ul RBC (3.5-6.1) 10^6/uL Hgb (14.0-18.0) gm/dL Hct (42.0-52.0) % MCV (80.0-105.0) fL MCH (25.0-35.0) pg MCHC (31.0-37.0) g/dl RDW (11.5-14.5) % Plt Count (120.0-450.0) 10^3/uL MPV (7.0-11.0) fl Gran % (50.0-68.0) % Lymph % (Auto) (22.0-35.0) % [place] % (Auto) (1.0-6.0) % Eos % (Auto) (1.5-5.0) % Baso % (Auto) (0.0-3.0) % Gran # (1.4-6.5) Lymph # (1.2-3.4) [place] # (0.1-0.6) Eos # (0.0-0.7) Baso # (0.0-2.0) K/mm3 APTT 49.3 H (23.7-30.8) Seconds Sodium (132-148) mmol/L Potassium (3.6-5.0) mmol/L Chloride (98-107) mmol/L Carbon Dioxide (21-33) mmol/L Anion Gap (10-20) BUN (7-21) mg/dL Creatinine (0.5-1.4) mg/dL Est GFR ( Amer) Est GFR (Non-Af Amer) Random Glucose (70-110) mg/dL Hemoglobin A1c (4.2-6.5) % Calcium (8.4-10.5) mg/dL Magnesium (1.7-2.2) mg/dL Total Bilirubin (0.2-1.3) mg/dL AST (15-59) U/L ALT (7-56) U/L Alkaline Phosphatase (38-133) U/L Lactate Dehydrogenase 721 H 624 (333-699) U/L Total Creatine Kinase 484 H 379 H (35-230) U/L CK-MB (CK-2) 38.2 H 37.0 H (0.0-3.6) ng/mL CK-MB (CK-2) % 7.9 H 9.8 H (2.5-3.0) % Troponin I 14.40 H* D 7.69 H* D ng/mL Total Protein (5.8-8.3) g/dL Albumin (3.0-4.8) g/dL Globulin gm/dL Albumin/Globulin Ratio (1.1-1.8) Triglycerides (35-160) mg/dL Cholesterol (130-200) mg/dL LDL Cholesterol Direct (0-129) mg/dL HDL Cholesterol (29-60) mg/dL Urine Color (YELLOW) Urine Appearance (CLEAR) Urine pH (4.7-8.0) Ur Specific [place] (1.005-1.035) Urine Protein (<30 mg/dL) mg/dL Urine Glucose (UA) (NEGATIVE) mg/dL Urine Ketones (NEGATIVE) mg/dL Urine Blood (NEGATIVE) Urine Nitrate (NEGATIVE) Urine Bilirubin (NEGATIVE) Urine Urobilinogen (<1 E.U./dL) E.U./dL Ur Leukocyte Esterase (NEGATIVE) Cordell/uL Urine RBC (0-2) /hpf Urine WBC (0-6) /hpf Ur Epithelial Cells (0-5) /hpf 07/12/16 07/11/16 Range/Units 00:15 19:20 WBC (4.5-11.0) 10^3/ul RBC (3.5-6.1) 10^6/uL Hgb (14.0-18.0) gm/dL Hct (42.0-52.0) % MCV (80.0-105.0) fL MCH (25.0-35.0) pg MCHC (31.0-37.0) g/dl RDW (11.5-14.5) % Plt Count (120.0-450.0) 10^3/uL MPV (7.0-11.0) fl Gran % (50.0-68.0) % Lymph % (Auto) (22.0-35.0) % [place] % (Auto) (1.0-6.0) % Eos % (Auto) (1.5-5.0) % Baso % (Auto) (0.0-3.0) % Gran # (1.4-6.5) Lymph # (1.2-3.4) [place] # (0.1-0.6) Eos # (0.0-0.7) Baso # (0.0-2.0) K/mm3 APTT 36.6 H (23.7-30.8) Seconds Sodium (132-148) mmol/L Potassium (3.6-5.0) mmol/L Chloride (98-107) mmol/L Carbon Dioxide (21-33) mmol/L Anion Gap (10-20) BUN (7-21) mg/dL Creatinine (0.5-1.4) mg/dL Est GFR ( Amer) Est GFR (Non-Af Amer) Random Glucose (70-110) mg/dL Hemoglobin A1c (4.2-6.5) % Calcium (8.4-10.5) mg/dL Magnesium (1.7-2.2) mg/dL Total Bilirubin (0.2-1.3) mg/dL AST (15-59) U/L ALT (7-56) U/L Alkaline Phosphatase (38-133) U/L Lactate Dehydrogenase (333-699) U/L Total Creatine Kinase (35-230) U/L CK-MB (CK-2) (0.0-3.6) ng/mL CK-MB (CK-2) % (2.5-3.0) % Troponin I ng/mL Total Protein (5.8-8.3) g/dL Albumin (3.0-4.8) g/dL Globulin gm/dL Albumin/Globulin Ratio (1.1-1.8) Triglycerides (35-160) mg/dL Cholesterol (130-200) mg/dL LDL Cholesterol Direct (0-129) mg/dL HDL Cholesterol (29-60) mg/dL Urine Color Yellow (YELLOW) Urine Appearance Clear (CLEAR) Urine pH 6.5 (4.7-8.0) Ur Specific [place] 1.015 (1.005-1.035) Urine Protein Trace H (<30 mg/dL) mg/dL Urine Glucose (UA) Negative (NEGATIVE) mg/dL Urine Ketones 15 H (NEGATIVE) mg/dL Urine Blood Trace-lysed H (NEGATIVE) Urine Nitrate Negative (NEGATIVE) Urine Bilirubin Negative (NEGATIVE) Urine Urobilinogen 0.2 (<1 E.U./dL) E.U./dL Ur Leukocyte Esterase Negative (NEGATIVE) Cordell/uL Urine RBC 2 - 5 (0-2) /hpf Urine WBC 0 - 2 (0-6) /hpf Ur Epithelial Cells 10 - 12 (0-5) /hpf Laboratory Results - last 24 hr 07/11/16 07/12/16 07/12/16 19:20 00:15 00:15 WBC RBC Hgb Hct MCV MCH MCHC RDW Plt Count MPV Gran % Lymph % (Auto) [place] % (Auto) Eos % (Auto) Baso % (Auto) Gran # Lymph # [place] # Eos # Baso # APTT 36.6 H Sodium Potassium Chloride Carbon Dioxide Anion Gap BUN Creatinine Est GFR ( Amer) Est GFR (Non-Af Amer) Random Glucose Hemoglobin A1c Calcium Magnesium Total Bilirubin AST ALT Alkaline Phosphatase Lactate Dehydrogenase 624 Total Creatine Kinase 379 H CK-MB (CK-2) 37.0 H CK-MB (CK-2) % 9.8 H Troponin I 7.69 H* D Total Protein Albumin Globulin Albumin/Globulin Ratio Triglycerides Cholesterol LDL Cholesterol Direct HDL Cholesterol Urine Color Yellow Urine Appearance Clear Urine pH 6.5 Ur Specific [place] 1.015 Urine Protein Trace H Urine Glucose (UA) Negative Urine Ketones 15 H Urine Blood Trace-lysed H Urine Nitrate Negative Urine Bilirubin Negative Urine Urobilinogen 0.2 Ur Leukocyte Esterase Negative Urine RBC 2 - 5 Urine WBC 0 - 2 Ur Epithelial Cells 10 - 12 07/12/16 07/12/16 07/12/16 05:30 06:30 06:50 WBC 8.4 RBC 4.10 Hgb 12.2 L Hct 37.0 L MCV 90.2 MCH 29.8 MCHC 33.0 RDW 15.3 H Plt Count 258 MPV 9.8 Gran % 68.0 Lymph % (Auto) 22.0 [place] % (Auto) 8.6 H Eos % (Auto) 1.2 L Baso % (Auto) 0.2 Gran # 5.71 Lymph # 1.9 [place] # 0.7 H Eos # 0.1 Baso # 0.02 APTT 49.3 H Sodium Potassium Chloride Carbon Dioxide Anion Gap BUN Creatinine Est GFR ( Amer) Est GFR (Non-Af Amer) Random Glucose Hemoglobin A1c Calcium Magnesium Total Bilirubin AST ALT Alkaline Phosphatase Lactate Dehydrogenase 721 H Total Creatine Kinase 484 H CK-MB (CK-2) 38.2 H CK-MB (CK-2) % 7.9 H Troponin I 14.40 H* D Total Protein Albumin Globulin Albumin/Globulin Ratio Triglycerides Cholesterol LDL Cholesterol Direct HDL Cholesterol Urine Color Urine Appearance Urine pH Ur Specific [place] Urine Protein Urine Glucose (UA) Urine Ketones Urine Blood Urine Nitrate Urine Bilirubin Urine Urobilinogen Ur Leukocyte Esterase Urine RBC Urine WBC Ur Epithelial Cells 07/12/16 07/12/16 06:50 06:50 WBC RBC Hgb Hct MCV MCH MCHC RDW Plt Count MPV Gran % Lymph % (Auto) [place] % (Auto) Eos % (Auto) Baso % (Auto) Gran # Lymph # [place] # Eos # Baso # APTT Sodium 140 Potassium 3.6 Chloride 99 Carbon Dioxide 33 Anion Gap 12 BUN 12 Creatinine 1.0 Est GFR ( Amer) > 60 Est GFR (Non-Af Amer) > 60 Random Glucose 166 H Hemoglobin A1c 8.2 H Calcium 9.1 Magnesium 1.8 Total Bilirubin 1.2 AST 90 H ALT 31 Alkaline Phosphatase 70 Lactate Dehydrogenase Total Creatine Kinase CK-MB (CK-2) CK-MB (CK-2) % Troponin I Total Protein 7.7 Albumin 3.9 Globulin 3.8 Albumin/Globulin Ratio 1.0 L Triglycerides 150 Cholesterol 257 H LDL Cholesterol Direct 188 H HDL Cholesterol 43 Urine Color Urine Appearance Urine pH Ur Specific [place] Urine Protein Urine Glucose (UA) Urine Ketones Urine Blood Urine Nitrate Urine Bilirubin Urine Urobilinogen Ur Leukocyte Esterase Urine RBC Urine WBC Ur Epithelial Cells EKG/Cardiology Studies: Cardiology / EKG Studies 07/12/16 07:00 EKG [ELECTROCARDIOGRAM] Routine Comment: Reason For Exam: NSTEMI 07/12/16 13:39 ELECTROCARDIOGRAM Urgent Comment: 12 lead EKG upon arrival in unit Reason For Exam: post ptca 07/13/16 13:45 ELECTROCARDIOGRAM DAILY Comment: Reason For Exam: chest pain Critical Care Progress Note - Nutrition Nutrition: Nutrition Category Date Time Status Heart Healthy Diet [DIET] Diets 07/12/16 Lunch Ordered Addendum Addendum: 07/12/16 17:31 patient was seen, examined and discussed at bedside with Dr. Hebert. Her note reflects my exam, assessment and plan, except as below. Meds/Labs/ONE reviewed. 66 yo male with NSTEMI s/p PCI. Continue DAP, TAC, bb and statins. Asymptomatic. Hemodynamically and respiratory potter stable ccm time 40 min
--- NOTE | 2016-07-12 08:09 | RAD ---
HISTORY: sob COMPARISON: No prior. FINDINGS: LUNGS: Mild bibasilar atelectasis PLEURA: No significant pleural effusion identified, no pneumothorax apparent. CARDIOVASCULAR: Heart appears enlarged. OSSEOUS STRUCTURES: No significant abnormalities. VISUALIZED UPPER ABDOMEN: Normal. OTHER FINDINGS: None. IMPRESSION: Mild bibasilar atelectasis. Cardiomegaly.
[2016-07-12 08:28] LABS: TROPONIN I 14.4 ng/mL
[2016-07-12] MEDS: Pantoprazole 40 mg EC Tab PO SCH (08:51)
--- NOTE | 2016-07-12 09:07 | CON ---
DATE: 07/11/2016 REASON FOR CONSULTATION: Chest pain. The patient is a 66-year-old male who has a history of hypertension, hyperlipidemia and history of coronary artery disease status post coronary stenting a few years ago. He is being fo llowed by his wound care rn, Dr. Johnson, his office by [facility]. The patient was sup posed to undergo a stress test by Dr. Johnson. However, for the past few days, the patient started to experience retrosternal chest pain in the upper sternal area, nonradiating. Denies any associated di aphoresis, shortness of breath or dizziness. SOCIAL HISTORY: The patient is nonsmoker, nondrinker. MEDICATIONS: The patient is currently on intravenous heparin infusion in a therapeutic regimen for a cute coronary syndrome, Aldactone 25 mg once a day, hydralazine 10 mg intravenously q. 4 hours p.r.n. , hydralazine 25 mg p.o. daily, Coreg 12.5 mg p.o. daily, Flomax 0.4 mg daily, isosorbide mononitrate 20 mg twice a day, Lipitor 40 mg p.o. once a day, Plavix 75 mg once a day, Tridil infusion as well a s Protonix 40 mg p.o. once a day. REVIEW OF SYSTEMS: No nausea or vomiting. No fever or chills. No dizziness or syncope. PHYSICAL EXAMINATION: GENERAL: The patient is an elderly male who does not appear to be in any distress. VITAL SIGNS: Blood pressure 157/103, heart rate 92, temperature 98.4, respirations 17. HEENT: Normocephalic. NECK: No JVD. CHEST: Clear. HEART: S1, S2 regular. ABDOMEN: Soft. EXTREMITIES: No edema. LABORATORIES: SMA-7: Sodium 141, potassium 3.5, chloride 100, CO2 30, glucose 158, BUN 11, creatini ne 0.9. Troponin 0.62. ProBNP is 1340. PT, PTT are within normal limits. Hemoglobin and hematocri t 12.6 and 36.8, white count and platelet count are within normal limit. EKG revealed sinus tachycardia at rate of 116, first degree AV block, left anterior fascicular block, lateral ischemic ST-T wave changes. Chest x-ray revealed cardiomegaly with mild CHF. ASSESSMENT: 1. Chest pain, consider non-ST elevation myocardial infarction. 2. Congestive heart failure. 3. Uncontrolled hypertension. 4. Coronary artery disease, status post coronary stenting a few years ago. RECOMMENDATIONS: The case was already discussed with Dr. Cormier, the ER physician, and the decision w as made to admit the patient to the ICU and maintain intravenous heparin infusion after a bolus of 50 00 units that was given in the Emergency Room. Continue current Lipitor at 40 mg once a day. Increa se Coreg to 12.5 mg twice a day. Continue Plavix 75 mg once a day. Potassium has been replaced in t he Emergency Room and the patient received already 1 dose of Lasix 40 mg IV push. I will obtain an e chocardiograph study in the morning. Cardiac catheterization was recommended and will be discussed w ith Dr. Jt Cortés upon his return back tomorrow. Yair Briones MD cc: [id number] TT: 07/12/2016 09:07:09 Confirmation # [id number] Dictation # [id number] en
[2016-07-12] MEDS ORDERED: Midazolam 2 MG/2 ML VIAL ONE ×2 (10:35→13:10)
[2016-07-12] MEDS ORDERED: Iohexol 350mgl/ml 50 ML ONE (12:24)
[2016-07-12] MEDS ORDERED: Iohexol 350 MG/100 ML VIAL ONE (12:24)
[2016-07-12] MEDS ORDERED: Lidocaine 2% Inj (20ml) ONE (12:24)
[2016-07-12] MEDS ORDERED: Sodium Chloride 0.9% 1,000 ML IV SCH (13:45)
--- NOTE | 2016-07-12 16:33 | CARD ---
APPROVED REPORT EXAM: Two-dimensional and M-mode echocardiogram with Doppler and color Doppler. INDICATION AR 2D DIMENSIONS Left Atrium (2D)5.0 (1.6-4.0cm)IVSd1.1 (0.7-1.1cm) LVDd5.7 (3.9-5.9cm)PWd1.3 (0.7-1.1cm) LVDs5.0 (2.5-4.0cm)FS (%) 12.0 % LVEF (%)25.2 (>50%) M-Mode DIMENSIONS Aortic Root3.00 (2.2-3.7cm)Aortic Cusp Exc.1.30 (1.5-2.0cm) Aortic Valve AoV Peak Sweacijt634.0cm/Alina Peak GR.10mmHgLVOT Peak Hxpxewzw56.7cm/s LVOT VTI20.00cm Mitral Valve MV E Uqkkkobb14.0cm/sMV A Myltvvbm29.7cm/sE/A ratio1.2 TDI Lateral E' Peak V10.00cm/sMedial E' Peak V6.24cm/sE/Lateral E'7.9 E/Medial E'12.7 Pulmonary Valve PV Peak Vwghlbuf65.1cm/sPV Peak Grad.2mmHg Tricuspid Valve TR Peak Zeuhvhio296tf/sRAP VLKPOVUZ50hfIhDS Peak Gr.40mmHg [id number] LEFT VENTRICLE The left ventricle is normal size. There is normal left ventricular wall thickness. The systolic function is severely impaired. Severly hypokinetic septum Transmitral Doppler flow pattern is Grade II-pseudonormal filling dynamics. No left ventricle thrombus noted on this study. RIGHT VENTRICLE The right ventricle is normal size. There is normal right ventricular wall thickness. The right ventricular systolic function is normal. ATRIA The left atrium is moderately dilated. The right atrium is mildly dilated. AORTIC VALVE The aortic valve is moderately sclerotic. No aortic regurgitation is present. MITRAL VALVE The mitral valve is moderately thickened. Mitral regurgitation is mild to moderate. TRICUSPID VALVE There is mild to moderate tricuspid regurgitation. There is mild to moderate pulmonary hypertension. GREAT VESSELS The aortic root is normal in size. PERICARDIAL EFFUSION There is a small loculated anterior pericardial effusion. <Conclusion> The left ventricle is normal size. There is normal left ventricular wall thickness. The systolic function is severely impaired. Severly hypokinetic septum No left ventricle thrombus noted on this study. Mitral regurgitation is mild to moderate. There is mild to moderate tricuspid regurgitation. There is mild to moderate pulmonary hypertension. There is a small loculated anterior pericardial effusion.
--- NOTE | 2016-07-12 17:20 | CARDCATH ---
PROCEDURE DATE: 07/12/2016 HISTORY: The patient is a 66-year-old male who presents with a non-STEMI. PAST MEDICAL HISTORY: Notable for PTCA and stent in the past. He suffers from hypertension, diabete s mellitus and hypercholesterolemia. The patient was referred for cardiac catheterization. PROCEDURE: Left heart catheterization with coronary angiography and left ventriculogram followed by PTCA and stent of a circumflex artery. The right femoral artery was cannulated with a 6-Kinyarwanda sheath. There were no complications. The findings on catheterization revealed a left ventricle that was dilated and globally hypokinetic w ith an estimated ejection fraction of 35% to 40%. His coronary anatomy revealed ____ circulation. The RCA revealed diffuse atherosclerosis with a ____ stenosis in the mid portion of a diffusely disea sed PDA. The left main artery was unremarkable. The LAD and diagonal vessels revealed diffuse atherosclerosis without critical lesions. The circumflex artery and obtuse marginal branches revealed diffuse atherosclerosis. The stent in th e mid to distal circumflex artery revealed a 90% stenoses. The patient was started on intravenous Angiomax. Under fluoroscopic guide, the guiding catheter was placed in the ostium of the left main artery. An 0.014 ATW wire was used to cross the in-stent restenosis of the circumflex artery. A 2.5 balloon was utilized to predilate the lesion. A 3.0 x 15 mm drug-eluting stent was placed and deployed at 12 atmospheres of pressure. Repeat coron reji angiography revealed an excellent result with no residual stenosis and HARSHA 3 flow. The patient tolerated the procedure well. Angio-Seal was used to close the femoral artery site. In summary, the procedure was a successful with PTCA and stent of a 90% in-stent restenosis of the ci rcumflex artery. Cardiac catheterization reveals 2-vessel CAD of the in-stent restenosis circumflex artery as well as a 90% stenosis in the PDA of the RCA. LV function is globally hypokinetic. Given these findings, the patient will need to remain on aspirin indefinitely and Plavix for at least 1 year and undergo a strict cardiac risk reduction program. We will bring him back in 1 week for PT CA and stent of an RCA. In addition, because of his global hypokinesis, we will need to start the pa tient on an BEE inhibitor and watch his renal function given his borderline renal insufficiency. Jt Cortés MD cc: [phone] TT: 07/12/2016 17:19:49 [facility] # [id number] sn
[2016-07-12] MEDS: Insulin Lispro (humaLOG) LOW Coverage SC SCH ×2 (18:13→22:03)
--- NOTE | 2016-07-12 22:17 | CARD ---
APPROVED REPORT EKG Measurement Heart [id number] [place] [id number] <Conclusion> Sinus rhythm with 1st degree AV block Left axis deviation Inferior infarct, age undetermined ST & T wave abnormality, consider anterolateral ischemia Prolonged QT Abnormal ECG
--- NOTE | 2016-07-12 22:30 | CARD ---
APPROVED REPORT EKG Measurement Heart [id number] <Conclusion> Sinus rhythm with 1st degree AV block Left anterior fascicular block ST & T wave abnormality, consider anterolateral ischemia Prolonged QT Abnormal ECG
--- NOTE | 2016-07-13 05:27 | CP.PCM.PN ---
Subjective - Date & Time of Evaluation Date of Evaluation: 07/13/16 Time of Evaluation: 05:26 - Subjective Subjective: S:Patient was seen at bedside for right elbow arthritic pain. Denies any injury to right elbow. Has no other complaints. Pertinent medical record was reviewed. O: Last Vital Signs 3 Temp 99.2 F 07/12/16 21:44 Pulse 63 07/13/16 01:00 Resp 20 07/13/16 01:00 BP 117/87 07/12/16 23:00 Pulse Ox 94 L 07/13/16 01:00 Awake, alert, not in distress. MUSCULOSKELETAL:Right elbow examination Normal. No swelling, no redness, no tenderness. ROM - full. A: Right elbow pain. P:Tylenol 650 mg PO x 1. Objective - Vital Signs/Intake and Output Vital Signs (last 24 hours): Temp Pulse Resp BP Pulse Ox 99.2 F 63 20 117/87 94 L 07/12/16 21:44 07/13/16 01:00 07/13/16 01:00 07/12/16 23:00 07/13/16 01:00 Intake and Output: 07/12/16 07/13/16 18:59 06:59 Intake Total 125 Balance 125 - Medications Medications: Current Medications Aspirin (Ecotrin) 81 mg PO DAILY [facility] Atorvastatin Calcium (Lipitor) 40 mg PO DIN [facility] Last Admin: 07/12/16 18:14 Dose: 40 mg Carvedilol (Coreg) 12.5 mg PO BID [facility] Last Admin: 07/12/16 18:21 Dose: 12.5 mg Clopidogrel Bisulfate (Plavix) 75 mg PO DAILY [facility] Last Admin: 07/12/16 08:50 Dose: 75 mg Hydralazine HCl (Apresoline) 25 mg PO DAILY [facility] Last Admin: 07/12/16 08:50 Dose: 25 mg Hydralazine HCl (Apresoline) 10 mg IVP Q4H PRN PRN Reason: Systolic Blood Pressure Insulin Human Lispro (Humalog Low) 0 units SC ACHS [facility] PRN Reason: Protocol Last Admin: 07/12/16 22:03 Dose: Not Given Isosorbide Mononitrate (Ismo) 20 mg PO BID [facility] Last Admin: 07/12/16 18:15 Dose: 20 mg Pantoprazole Sodium (Protonix Ec Tab) 40 mg PO 0630 [facility] Last Admin: 07/12/16 08:51 Dose: 40 mg Spironolactone (Aldactone) 25 mg PO DAILY [facility] Last Admin: 07/12/16 17:56 Dose: 25 mg Tamsulosin HCl (Flomax) 0.4 mg PO DAILY [facility] Last Admin: 07/12/16 08:49 Dose: 0.4 mg - Labs Labs: 07/12/16 06:50 07/12/16 06:50 PT 10.4 Seconds (9.9-11.8) 07/11/16 16:10 INR 0.96 (0.93-1.08) 07/11/16 16:10 APTT 33.7 Seconds (23.7-30.8) H 07/12/16 18:38
[2016-07-13 06:05] VITALS: TEMP 98.5
[2016-07-13 06:05] LABS: ADD MANUAL DIFF? NO
[2016-07-13 06:14] LABS: BASO # 0.01 K/mm3 (0.0-2.0); BASO % 0.1 % (0.0-3.0); EOS # 0.1 (0.0-0.7); EOS % 0.8 % (1.5-5.0); GRAN # 4.61 (1.4-6.5); GRAN % 63.9 % (50.0-68.0); HEMATOCRIT 33.6 % (42.0-52.0); LYMPH # 1.9 (1.2-3.4); LYMPH % 25.7 % (22.0-35.0); MEAN CELL VOLUME 90.8 fL (80.0-105.0); MEAN CORPUSCULAR HEMOGLOBIN 29.7 pg (25.0-35.0); MEAN CORPUSCULAR HGB CONC 32.7 g/dl (31.0-37.0); MEAN PLATELET VOLUME 9.7 fl (7.0-11.0); MONO # 0.7 (0.1-0.6); MONO % 9.5 % (1.0-6.0); PLATELET COUNT 223 10^3/uL (120.0-450.0); RED CELL DISTRIBUTION WIDTH 15.2 % (11.5-14.5); WHITE BLOOD COUNT 7.2 10^3/ul (4.5-11.0)
[2016-07-13 06:39] LABS: ALKALINE PHOSPHATASE 62 U/L (38-133); ALT/SGPT 33 U/L (7-56); AST/SGOT 53 U/L (15-59); BILIRUBIN,TOTAL 1.3 mg/dL (0.2-1.3); BLOOD UREA NITROGEN 13 mg/dL (7-21); CALCIUM 8.7 mg/dL (8.4-10.5); CARBON DIOXIDE 31 mmol/L (21-33); CHLORIDE 101 mmol/L (98-107); GFR AFRICAN-AMERICAN > 60; GLUCOSE,RANDOM 144 mg/dL (70-110); MAGNESIUM 1.9 mg/dL (1.7-2.2); PHOSPHOROUS 3.7 mg/dL (2.5-4.5); POTASSIUM 3.8 mmol/L (3.6-5.0); SODIUM 138 mmol/L (132-148); TOTAL PROTEIN 7.2 g/dL (5.8-8.3)
[2016-07-13] MEDS: Pantoprazole 40 mg EC Tab PO SCH (09:10)
[2016-07-13] MEDS: Insulin Lispro (humaLOG) LOW Coverage SC SCH ×2 (09:15→11:58)
--- NOTE | 2016-07-13 10:09 | PN ---
DATE: 07/13/2016 The patient is chest pain free. PHYSICAL EXAMINATION: VITAL SIGNS: Blood pressure is 112/70, the heart rate is in the 70s. NECK: Negative JVD. LUNGS: Without rales. HEART: Reveals S1, S2. EXTREMITIES: Without edema. LABORATORY DATA: Hemoglobin is 11. Chemistries: Glucose is 144, potassium is 3.8. IMPRESSION: 1. Status post non-ST elevation myocardial infarction. 2. Status post percutaneous transluminal coronary angioplasty and stent of the circumflex artery. 3. Global left ventricular hypokinesis. 4. Two-vessel coronary artery disease. PLAN: Given these findings, the patient can be discharged today. We will bring the patient back nex t week for PTCA and stent of an RCA. In addition, the patient should continue on his aspirin and Geremias vix as well as his afterload caser up medications. Jt Cortés MD cc: [phone] TT: 07/13/2016 10:08:06 Confirmation # [id number] Dictation # [id number] evita
[2016-07-13] MEDS ORDERED: MethylPREDNISolone 40 mg Vial IVP STA (13:29)
--- NOTE | 2016-07-13 14:23 | CP.PCM.DIS ---
<Melisa Orta - Last Filed: 07/15/16 10:15> Provider - Provider Date of Admission: 07/11/16 17:58 Attending physician: Randell Lockhart MD Primary care physician: Charo Singh MD Consults: Cardiology Time Spent in preparation of Discharge (in minutes): 60 Diagnosis - Discharge Diagnosis (1) Non-STEMI (non-ST elevated myocardial infarction) Status: Acute (2) New onset type 2 diabetes mellitus Status: Acute (3) HTN (hypertension) Status: Acute (4) Dyslipidemia Status: Acute (5) Elbow pain, right Status: Acute (6) CAD (coronary artery disease) Status: Acute (7) Hypokalemia Status: Resolved (8) Obstructive sleep apnea treated with BiPAP Status: Chronic Hospital Course - Lab Results Lab Results: Micro Results 07/11/16 21:30 Nose MRSA Culture (Admit) - Final MRSA NOT DETECTED Most Recent Lab Values WBC 7.2 10^3/ul (4.5-11.0) 07/13/16 05:30 RBC 3.70 10^6/uL (3.5-6.1) 07/13/16 05:30 Hgb 11.0 gm/dL (14.0-18.0) L 07/13/16 05:30 Hct 33.6 % (42.0-52.0) L 07/13/16 05:30 MCV 90.8 fL (80.0-105.0) 07/13/16 05:30 MCH 29.7 pg (25.0-35.0) 07/13/16 05:30 MCHC 32.7 g/dl (31.0-37.0) 07/13/16 05:30 RDW 15.2 % (11.5-14.5) H 07/13/16 05:30 Plt Count 223 10^3/uL (120.0-450.0) 07/13/16 05:30 MPV 9.7 fl (7.0-11.0) 07/13/16 05:30 Gran % 63.9 % (50.0-68.0) 07/13/16 05:30 Lymph % (Auto) 25.7 % (22.0-35.0) 07/13/16 05:30 [place] % (Auto) 9.5 % (1.0-6.0) H 07/13/16 05:30 Eos % (Auto) 0.8 % (1.5-5.0) L 07/13/16 05:30 Baso % (Auto) 0.1 % (0.0-3.0) 07/13/16 05:30 Gran # 4.61 (1.4-6.5) 07/13/16 05:30 Lymph # 1.9 (1.2-3.4) 07/13/16 05:30 [place] # 0.7 (0.1-0.6) H 07/13/16 05:30 Eos # 0.1 (0.0-0.7) 07/13/16 05:30 Baso # 0.01 K/mm3 (0.0-2.0) 07/13/16 05:30 PT 10.4 Seconds (9.9-11.8) 07/11/16 16:10 INR 0.96 (0.93-1.08) 07/11/16 16:10 APTT 33.7 Seconds (23.7-30.8) H 07/12/16 18:38 Sodium 138 mmol/L (132-148) 07/13/16 05:30 Potassium 3.8 mmol/L (3.6-5.0) 07/13/16 05:30 Chloride 101 mmol/L (98-107) 07/13/16 05:30 Carbon Dioxide 31 mmol/L (21-33) 07/13/16 05:30 Anion Gap 10 (10-20) 07/13/16 05:30 BUN 13 mg/dL (7-21) 07/13/16 05:30 Creatinine 1.0 mg/dL (0.5-1.4) 07/13/16 05:30 Est GFR ( Amer) > 60 07/13/16 05:30 Est GFR (Non-Af Amer) > 60 07/13/16 05:30 POC Glucose (mg/dL) 152 mg/dL (65-110) H 07/13/16 07:16 Random Glucose 144 mg/dL (70-110) H 07/13/16 05:30 Hemoglobin A1c 8.2 % (4.2-6.5) H 07/12/16 06:50 Calcium 8.7 mg/dL (8.4-10.5) 07/13/16 05:30 Phosphorus 3.7 mg/dL (2.5-4.5) 07/13/16 05:30 Magnesium 1.9 mg/dL (1.7-2.2) 07/13/16 05:30 Total Bilirubin 1.3 mg/dL (0.2-1.3) 07/13/16 05:30 AST 53 U/L (15-59) 07/13/16 05:30 ALT 33 U/L (7-56) 07/13/16 05:30 Alkaline Phosphatase 62 U/L (38-133) 07/13/16 05:30 Lactate Dehydrogenase 721 U/L (333-699) H 07/12/16 06:30 Total Creatine Kinase 484 U/L (35-230) H 07/12/16 06:30 CK-MB (CK-2) 38.2 ng/mL (0.0-3.6) H 07/12/16 06:30 CK-MB (CK-2) % 7.9 % (2.5-3.0) H 07/12/16 06:30 Troponin I 14.40 ng/mL H* D 07/12/16 06:30 NT-Pro-B Natriuret Pep 1340 pg/mL (0-450) H 07/11/16 16:10 Total Protein 7.2 g/dL (5.8-8.3) 07/13/16 05:30 Albumin 3.6 g/dL (3.0-4.8) 07/13/16 05:30 Globulin 3.6 gm/dL 07/13/16 05:30 Albumin/Globulin Ratio 1.0 (1.1-1.8) L 07/13/16 05:30 Triglycerides 150 mg/dL (35-160) 07/12/16 06:50 Cholesterol 257 mg/dL (130-200) H 07/12/16 06:50 LDL Cholesterol Direct 188 mg/dL (0-129) H 07/12/16 06:50 HDL Cholesterol 43 mg/dL (29-60) 07/12/16 06:50 Lipase 45 U/L (23-300) 07/11/16 16:10 Urine Color Yellow (YELLOW) 07/11/16 19:20 Urine Appearance Clear (CLEAR) 07/11/16 19:20 Urine pH 6.5 (4.7-8.0) 07/11/16 19:20 Ur Specific [place] 1.015 (1.005-1.035) 07/11/16 19:20 Urine Protein Trace mg/dL (<30 mg/dL) H 07/11/16 19:20 Urine Glucose (UA) Negative mg/dL (NEGATIVE) 07/11/16 19:20 Urine Ketones 15 mg/dL (NEGATIVE) H 07/11/16 19:20 Urine Blood Trace-lysed (NEGATIVE) H 07/11/16 19:20 Urine Nitrate Negative (NEGATIVE) 07/11/16 19:20 Urine Bilirubin Negative (NEGATIVE) 07/11/16 19:20 Urine Urobilinogen 0.2 E.U./dL (<1 E.U./dL) 07/11/16 19:20 Ur Leukocyte Esterase Negative Cordell/uL (NEGATIVE) 07/11/16 19:20 Urine RBC 2 - 5 /hpf (0-2) 07/11/16 19:20 Urine WBC 0 - 2 /hpf (0-6) 07/11/16 19:20 Ur Epithelial Cells 10 - 12 /hpf (0-5) 07/11/16 19:20 - Hospital Course Hospital Course: Patient is a 66 y/o A.A.F with PMH of htn, CAD with 1 stent, prostate ca s/p radiation, CHETAN ( home bipap), hld presenting with chest discomfort for the past 5 days. EKG revealed sinus tachy, lateral lead ischemia, LAFB, can't rule out anterior infarct, with 1st degree av block. Troponin elevated x3, including ckmb. Patient was started on heparin drip, loaded with aspirin and plavix. Patient was also started on nitro drip for chest pain. Patient was admitted to ICU for further monitoring. Patient underwent cardiac cath which revealed RCA infarct and restenosis of the circumflex. Patient underwent PTCA of the circumflex with KP. Patient to come back [place] [facility] [place] for PTCA of the RCA. Furthermore, cardiac echo revealed global hypokinesis, with LVEF of 25% ( seem [facility] for full report). Patient was also found to have new onset diabetes mellitus with hgba1c of 8.2, including dyslipidemia with LDL of 188. Patient to be discharged to continue aspirin indefinitely, and plavix for 1 year. Patient will come back to [facility] [place] for PTCA of the RCA. Patient c/o right elbow pain, elbow x-ray was normal, was giving stat dose of solumedrol 30 mg to reduce inflammation. Patient to start diabetes treatment once his CAD is taking care of. Advised on the importance of eating low carb diets, and avoiding sodium. - Date & Time of H&P Date of H&P: 07/11/16 Time of H&P: 17:35 Discharge Exam - Head Exam Head Exam: ATRAUMATIC, NORMAL INSPECTION, NORMOCEPHALIC - Eye Exam Eye Exam: Normal appearance, PERRL. absent: Scleral icterus - ENT Exam ENT Exam: Mucous Membranes Moist - Neck Exam Neck exam: Normal Inspection - Respiratory Exam Respiratory Exam: Clear to PA & Lateral, NORMAL BREATHING PATTERN, UNREMARKABLE. absent: Decreased Breath Sounds, Prolonged Expiratory Phase, Rales, Rhonchi, Wheezes, Respiratory Distress, Stridor - Cardiovascular Exam Cardiovascular Exam: REGULAR RHYTHM, RRR, +S1, +S2. absent: Gallop, Irregular Rhythm, JVD, Rubs, Systolic Murmur - GI/Abdominal Exam GI & Abdominal Exam: Normal Bowel Sounds, Unremarkable. absent: Distended, Firm , Guarding, Rigid, Soft, Tenderness - Extremities Exam Extremities exam: pedal edema - Back Exam Back exam: NORMAL INSPECTION - Neurological Exam Neurological exam: Alert, Oriented x3 - Psychiatric Exam Psychiatric exam: Normal Affect, Normal Mood - Skin Skin Exam: Dry, Intact, Normal Color, Warm Discharge Plan - Discharge Medications Prescriptions: Aspirin [Ecotrin] 81 mg PO DAILY #30 Atorvastatin [Lipitor] 40 mg PO DIN #30 tab - Follow Up Plan Condition: CRITICAL Disposition: HOME/ ROUTINE Patient education suggested?: Yes Instructions: Myocardial Infarction (DC), Myocardial Infarction (GEN), Hypertension (DC), Hypertension (GEN) Additional Instructions: Take medications as prescribed Aspirin 81 mg once a day forever plavix 75 mg for 1 year follow up with Dr Cortés next Sunday for cardiac cath Eat low carb diet and avoid added sodium diet. Referrals: Charo Singh MD [Primary Care Provider] - Jt Cortés MD [Staff Provider] - <Randell Lockhart - Last Filed: 08/09/16 08:26> Provider - Provider Date of Admission: 07/11/16 17:58 Attending physician: Randell Lockhart MD Primary care physician: Charo Singh MD Hospital Course - Lab Results Lab Results: Micro Results 07/11/16 21:30 Nose MRSA Culture (Admit) - Final MRSA NOT DETECTED Most Recent Lab Values WBC 7.2 10^3/ul (4.5-11.0) 07/13/16 05:30 RBC 3.70 10^6/uL (3.5-6.1) 07/13/16 05:30 Hgb 11.0 gm/dL (14.0-18.0) L 07/13/16 05:30 Hct 33.6 % (42.0-52.0) L 07/13/16 05:30 MCV 90.8 fL (80.0-105.0) 07/13/16 05:30 MCH 29.7 pg (25.0-35.0) 07/13/16 05:30 MCHC 32.7 g/dl (31.0-37.0) 07/13/16 05:30 RDW 15.2 % (11.5-14.5) H 07/13/16 05:30 Plt Count 223 10^3/uL (120.0-450.0) 07/13/16 05:30 MPV 9.7 fl (7.0-11.0) 07/13/16 05:30 Gran % 63.9 % (50.0-68.0) 07/13/16 05:30 Lymph % (Auto) 25.7 % (22.0-35.0) 07/13/16 05:30 [place] % (Auto) 9.5 % (1.0-6.0) H 07/13/16 05:30 Eos % (Auto) 0.8 % (1.5-5.0) L 07/13/16 05:30 Baso % (Auto) 0.1 % (0.0-3.0) 07/13/16 05:30 Gran # 4.61 (1.4-6.5) 07/13/16 05:30 Lymph # 1.9 (1.2-3.4) 07/13/16 05:30 [place] # 0.7 (0.1-0.6) H 07/13/16 05:30 Eos # 0.1 (0.0-0.7) 07/13/16 05:30 Baso # 0.01 K/mm3 (0.0-2.0) 07/13/16 05:30 PT 10.4 Seconds (9.9-11.8) 07/11/16 16:10 INR 0.96 (0.93-1.08) 07/11/16 16:10 APTT 33.7 Seconds (23.7-30.8) H 07/12/16 18:38 Sodium 138 mmol/L (132-148) 07/13/16 05:30 Potassium 3.8 mmol/L (3.6-5.0) 07/13/16 05:30 Chloride 101 mmol/L (98-107) 07/13/16 05:30 Carbon Dioxide 31 mmol/L (21-33) 07/13/16 05:30 Anion Gap 10 (10-20) 07/13/16 05:30 BUN 13 mg/dL (7-21) 07/13/16 05:30 Creatinine 1.0 mg/dL (0.5-1.4) 07/13/16 05:30 Est GFR ( Amer) > 60 07/13/16 05:30 Est GFR (Non-Af Amer) > 60 07/13/16 05:30 POC Glucose (mg/dL) 198 mg/dL (65-110) H 07/13/16 11:42 Random Glucose 144 mg/dL (70-110) H 07/13/16 05:30 Hemoglobin A1c 8.2 % (4.2-6.5) H 07/12/16 06:50 Calcium 8.7 mg/dL (8.4-10.5) 07/13/16 05:30 Phosphorus 3.7 mg/dL (2.5-4.5) 07/13/16 05:30 Magnesium 1.9 mg/dL (1.7-2.2) 07/13/16 05:30 Total Bilirubin 1.3 mg/dL (0.2-1.3) 07/13/16 05:30 AST 53 U/L (15-59) 07/13/16 05:30 ALT 33 U/L (7-56) 07/13/16 05:30 Alkaline Phosphatase 62 U/L (38-133) 07/13/16 05:30 Lactate Dehydrogenase 721 U/L (333-699) H 07/12/16 06:30 Total Creatine Kinase 484 U/L (35-230) H 07/12/16 06:30 CK-MB (CK-2) 38.2 ng/mL (0.0-3.6) H 07/12/16 06:30 CK-MB (CK-2) % 7.9 % (2.5-3.0) H 07/12/16 06:30 Troponin I 14.40 ng/mL H* D 07/12/16 06:30 NT-Pro-B Natriuret Pep 1340 pg/mL (0-450) H 07/11/16 16:10 Total Protein 7.2 g/dL (5.8-8.3) 07/13/16 05:30 Albumin 3.6 g/dL (3.0-4.8) 07/13/16 05:30 Globulin 3.6 gm/dL 07/13/16 05:30 Albumin/Globulin Ratio 1.0 (1.1-1.8) L 07/13/16 05:30 Triglycerides 150 mg/dL (35-160) 07/12/16 06:50 Cholesterol 257 mg/dL (130-200) H 07/12/16 06:50 LDL Cholesterol Direct 188 mg/dL (0-129) H 07/12/16 06:50 HDL Cholesterol 43 mg/dL (29-60) 07/12/16 06:50 Lipase 45 U/L (23-300) 07/11/16 16:10 Urine Color Yellow (YELLOW) 07/11/16 19:20 Urine Appearance Clear (CLEAR) 07/11/16 19:20 Urine pH 6.5 (4.7-8.0) 07/11/16 19:20 Ur Specific [place] 1.015 (1.005-1.035) 07/11/16 19:20 Urine Protein Trace mg/dL (<30 mg/dL) H 07/11/16 19:20 Urine Glucose (UA) Negative mg/dL (NEGATIVE) 07/11/16 19:20 Urine Ketones 15 mg/dL (NEGATIVE) H 07/11/16 19:20 Urine Blood Trace-lysed (NEGATIVE) H 07/11/16 19:20 Urine Nitrate Negative (NEGATIVE) 07/11/16 19:20 Urine Bilirubin Negative (NEGATIVE) 07/11/16 19:20 Urine Urobilinogen 0.2 E.U./dL (<1 E.U./dL) 07/11/16 19:20 Ur Leukocyte Esterase Negative [place]/uL (NEGATIVE) 07/11/16 19:20 Urine RBC 2 - 5 /hpf (0-2) 07/11/16 19:20 Urine WBC 0 - 2 /hpf (0-6) 07/11/16 19:20 Ur Epithelial Cells 10 - 12 /hpf (0-5) 07/11/16 19:20 Attending/Attestation - Attestation I have personally seen and examined this patient.: Yes I have fully participated in the care of the patient.: Yes I have reviewed all pertinent clinical information, including history, physical exam and plan: Yes Notes (Text): 08/09/16 08:26 Medical record note made by resident after discussion with my direction and input after patient personally seen and examined by me. I have reviewed the chart and agree that the record accurately reflects my personal history, physical, data review and plan.
--- NOTE | 2016-07-13 14:32 | RAD ---
PROCEDURE: Radiographs of the right elbow. HISTORY: r/o fracture COMPARISON: No prior. FINDINGS: BONES: Bone alignment and mineralization are normal. No acute fracture. JOINTS: Mild osteoarthritis. SOFT TISSUES: Normal. JOINT EFFUSION: None. OTHER FINDINGS: None. IMPRESSION: No acute fracture or dislocation.
[2016-07-13 15:12] VITALS: BP 128/71; PULSE 77; RESP 26; O2SAT 92
--- NOTE | 2016-07-13 15:47 | CARD ---
APPROVED REPORT EKG Measurement Heart [id number] [id number] <Conclusion> Normal sinus rhythm Left anterior fascicular block Cannot rule out Inferior infarct (masked by fascicular block?), age undetermined ST & T wave abnormality, consider anterolateral ischemia Abnormal ECG
== END 2016-07-13 15:52 | disposition home or self-care (01) | DRG 247 ==
LOC: ED 15:48 → ERH 17:58 → CCU 21:14
PROVIDERS: ADMIT Internal Medicine; ATTEND Internal Medicine
PROC: 027034Z Dilation of Coronary Artery, One Artery with Drug-eluting Intraluminal Device, Percutaneous Approach (ICD-10-PCS; principal; 2016-07-12)
PROC: 4A023N7 Measurement of Cardiac Sampling and Pressure, Left Heart, Percutaneous Approach (ICD-10-PCS; 2016-07-12)
PROC: B2111ZZ Fluoroscopy of Multiple Coronary Arteries using Low Osmolar Contrast (ICD-10-PCS; 2016-07-12)
PROC: B2151ZZ Fluoroscopy of Left Heart using Low Osmolar Contrast (ICD-10-PCS; 2016-07-12)
DX: I21.4 Non-ST elevation (NSTEMI) myocardial infarction (principal); I11.0 Hypertensive heart disease with heart failure; T82.855A Stenosis of coronary artery stent, initial encounter; E11.9 Type 2 diabetes mellitus without complications; E78.5 Hyperlipidemia, unspecified; M25.521 Pain in right elbow; E78.00 Pure hypercholesterolemia, unspecified; G47.33 Obstructive sleep apnea (adult) (pediatric); I25.110 Atherosclerotic heart disease of native coronary artery with unstable angina pectoris; I25.2 Old myocardial infarction; N28.9 Disorder of kidney and ureter, unspecified; N40.0 Benign prostatic hyperplasia without lower urinary tract symptoms; Y83.1 Surgical operation with implant of artificial internal device as the cause of abnormal reaction of the patient, or of later complication, without mention of misadventure at the time of the procedure; Z82.49 Family history of ischemic heart disease and other diseases of the circulatory system; Z85.46 Personal history of malignant neoplasm of prostate; Z87.891 Personal history of nicotine dependence; Z92.3 Personal history of irradiation; R40.2411 Glasgow coma scale score 13-15, in the field [EMT or ambulance]; R00.0 Tachycardia, unspecified; I44.0 Atrioventricular block, first degree; E87.6 Hypokalemia; G47.30 Sleep apnea, unspecified; I44.4 Left anterior fascicular block; I51.7 Cardiomegaly; Z95.5 Presence of coronary angioplasty implant and graft

== ENCOUNTER 2016-07-19 06:48 | Day surgery (SDC) | payer MEDICARE ==
[2016-07-18 15:12] VITALS: BMI 33.0
[2016-07-19 07:14] LABS: ADD MANUAL DIFF? NO
[2016-07-19 07:21] LABS: BASO # 0.02 K/mm3 (0.0-2.0); BASO % 0.4 % (0.0-3.0); EOS # 0.2 (0.0-0.7); EOS % 3.5 % (1.5-5.0); GRAN # 3.38 (1.4-6.5); GRAN % 62.3 % (50.0-68.0); HEMATOCRIT 34.6 % (42.0-52.0); LYMPH # 1.5 (1.2-3.4); LYMPH % 27.9 % (22.0-35.0); MEAN CELL VOLUME 91.3 fL (80.0-105.0); MEAN CORPUSCULAR HEMOGLOBIN 29.3 pg (25.0-35.0); MEAN CORPUSCULAR HGB CONC 32.1 g/dl (31.0-37.0); MEAN PLATELET VOLUME 10.2 fl (7.0-11.0); MONO # 0.3 (0.1-0.6); MONO % 5.9 % (1.0-6.0); PLATELET COUNT 254 10^3/uL (120.0-450.0); RED CELL DISTRIBUTION WIDTH 14.8 % (11.5-14.5); WHITE BLOOD COUNT 5.4 10^3/ul (4.5-11.0)
[2016-07-19 07:31] LABS: INR 0.96 (0.93-1.08); PARTIAL THROMBOPLASTIN TIME 26.3 Seconds (23.7-30.8)
[2016-07-19 07:48] LABS: BLOOD UREA NITROGEN 14 mg/dL (7-21); CALCIUM 9.3 mg/dL (8.4-10.5); CARBON DIOXIDE 25 mmol/L (21-33); CHLORIDE 104 mmol/L (98-107); CHOLESTEROL 168 mg/dL (130-200); GFR AFRICAN-AMERICAN > 60; GLUCOSE,RANDOM 161 mg/dL (70-110); POTASSIUM 3.9 mmol/L (3.6-5.0); SODIUM 139 mmol/L (132-148)
[2016-07-19] MEDS ORDERED: Iohexol 350mgl/ml 50 ML ONE (10:01)
[2016-07-19] MEDS ORDERED: Nitroglycerin 50mg in D5W 0 MG/0 ML BOTTLE IV ONE (10:01)
[2016-07-19] MEDS ORDERED: Lidocaine 2% Inj (20ml) ONE (10:01)
[2016-07-19] MEDS ORDERED: Midazolam 2 MG/2 ML VIAL ONE ×2 (10:31→10:49)
[2016-07-19] MEDS ORDERED: Sodium Chloride 0.9% 1,000 ML IV SCH (11:30)
--- NOTE | 2016-07-19 12:01 | CARDCATH ---
PROCEDURE DATE: 07/19/2016 CARDIAC CATHETERIZATION AND PERCUTANEOUS TRANSLUMINAL CORONARY ANGIOPLASTY HISTORY: The patient is a 66-year-old male with multiple cardiac risk factors who presented with uns table angina last week. He was found to have 2-vessel CAD and underwent successful PTCA and stent of a critically-stenosed circumflex artery. He presents today for PTCA and stent of a critically-steno sed RCA. PROCEDURE: Coronary angiography followed by PTCA and stent of the PDA of the RCA. The left femoral artery was cannulated with a 6-Egyptian sheath. There were no complications. Findings on catheterization revealed a patent stent in the circumflex artery with HASRHA 3 flow. The RCA was a dominant vessel and revealed a 99% stenosis in the mid portion of the PDA of the RCA. The patient was started on intravenous Angiomax. Under fluoroscopic guide, the guiding catheter was placed in the ostium of the RCA. An 0.014 ATW wir e used to cross the critical lesion. A 2.0 balloon was utilized to predilate the lesion. A 2.5 mm x 12 mm drug-eluting stent was placed and deployed in the RCA, PDA at 12 atmospheres of pres sure. Repeat coronary angiography revealed an excellent result with no residual stenosis and HARSHA 3 flow. Angio-Seal was used to close the femoral artery site. The patient tolerated the procedure well. SUMMARY: The procedure was successful PTCA and stent of a critically-stenosed PDA lesion of the RCA. Cardiac catheterization revealed 2-vessel disease with a documented patent stent in the circumflex ar irish, which was placed last week. Given these findings, the patient will need to remain on aspirin indefinitely and Plavix for at least 1 year and undergo a strict cardiac risk reduction program. Jt Cortés MD cc: [id number] TT: 07/19/2016 12:00:44 [place]
--- NOTE | 2016-07-19 12:27 | CP.PCM.HP ---
<Ryan West - Last Filed: 07/19/16 15:32> History of Present Illness - History of Present Illness History of Present Illness: HPI: Patient is a 66 yo male with history of hypertension, hyperlipidemia, CAD, CHETAN, CHF (LVEF ~25%), DM type 2, prostate ca s/p radiation that presents for outpatient cardiac catherization. Patient reported that he was previously admitted for chest pain that ultimately resulted in a cardiac catherization and stent placement. Today, he presented for outpatient cardiac catherization for the substernal chest discomfort that had been ongoing for 1 week prior to presentation. Patient had one stent placed in the PDA of the RCA. He denied shortness of breath, palpitations, fever, chills, cough, abdominal pain, nausea , vomiting, focal weakness, numbness, tingling. 12 point ROS as per HPI above, otherwise negative PMHx: HTN, HLD, CHETAN, CHF, Prostate Ca, CAD, DM type 2 PSHx: cardiac stents Allergies: Enalapril (angioedema) Family hx: Cardiac and HTN history in the family Social Hx: Former smoker (1ppd, quit ~4yrs ago); Denies alcohol and illicit drugs. Lives with his Present on Admission - Present on Admission Any Indicators Present on Admission: No Past Patient History - Infectious Disease Hx of Infectious Diseases: None - Tetanus Immunizations Tetanus Immunization: Unknown - Past Medical History & Family History Past Medical History?: Yes - Past Social History Smoking Status: Former Smoker - CARDIAC Hx Pacemaker: No - PULMONARY Hx Respiratory Disorders: No - NEUROLOGICAL Hx Paralysis: No - HEENT Other/Comment: glasses. - RENAL Hx Chronic Kidney Disease: No - ENDOCRINE/METABOLIC Hx Endocrine Disorders: No - HEMATOLOGICAL/ONCOLOGICAL Hx Blood Transfusions: No - INTEGUMENTARY Hx Dermatological Problems: No - MUSCULOSKELETAL/RHEUMATOLOGICAL Hx Musculoskeletal Disorders: Yes - GASTROINTESTINAL Hx Gastrointestinal Disorders: No - GENITOURINARY/GYNECOLOGICAL Hx Genitourinary Disorders: Yes Hx Prostate Problems: Yes (prostate ca (under treatment)) - PSYCHIATRIC Hx Emotional Abuse: No Hx Physical Abuse: No Hx Substance Use: No - SURGICAL HISTORY Hx Surgeries: Yes - ANESTHESIA Hx Anesthesia Reactions: No Hx Malignant Hyperthermia: No Meds Allergies/Adverse Reactions: Allergies Allergy/AdvReac Type Severity Reaction Status Date / Time enalapril Allergy ANGIOEDEMA Verified 07/11/16 16:05 Physical Exam - Constitutional Appears: Non-toxic, No Acute Distress - Head Exam Head Exam: ATRAUMATIC, NORMAL INSPECTION, NORMOCEPHALIC - Eye Exam Eye Exam: EOMI, PERRL - ENT Exam ENT Exam: Mucous Membranes Moist - Respiratory Exam Respiratory Exam: Clear to Auscultation Bilateral. absent: Rales, Rhonchi, Wheezes - Cardiovascular Exam Cardiovascular Exam: RRR, +S1, +S2. absent: Gallop, Rubs - GI/Abdominal Exam GI & Abdominal Exam: Soft. absent: Distended, Firm, Guarding, Rigid, Tenderness - Extremities Exam Extremities exam: Positive for: normal inspection. Negative for: tenderness - Neurological Exam Neurological exam: Alert, Oriented x3 - Psychiatric Exam Psychiatric exam: Normal Affect, Normal Mood - Skin Skin Exam: Dry, Intact, Normal Color, Warm Results - Vital Signs Recent Vital Signs: Last Vital Signs Temp 98.2 F 07/19/16 07:25 Pulse 63 07/19/16 07:25 Resp 18 07/19/16 07:25 BP 99/60 L 07/19/16 07:25 Pulse Ox 95 07/19/16 07:25 - Labs Result Diagrams: 07/19/16 07:00 07/19/16 07:00 Labs: Laboratory Results - last 24 hr 07/19/16 07/19/16 07/19/16 06:45 07:00 07:00 WBC 5.4 D RBC 3.79 Hgb 11.1 L Hct 34.6 L MCV 91.3 MCH 29.3 MCHC 32.1 RDW 14.8 H Plt Count 254 MPV 10.2 Gran % 62.3 Lymph % (Auto) 27.9 [place] % (Auto) 5.9 Eos % (Auto) 3.5 Baso % (Auto) 0.4 Gran # 3.38 Lymph # 1.5 [place] # 0.3 Eos # 0.2 Baso # 0.02 PT INR APTT Sodium 139 Potassium 3.9 Chloride 104 Carbon Dioxide 25 Anion Gap 14 BUN 14 Creatinine 1.0 Est GFR ( Amer) > 60 Est GFR (Non-Af Amer) > 60 POC Glucose (mg/dL) Random Glucose 161 H Calcium 9.3 Triglycerides 117 Cholesterol 168 LDL Cholesterol Direct 110 HDL Cholesterol 28 L Blood Type Blood Type Confirm A POSITIVE Antibody Screen BBK History Checked 07/19/16 07/19/16 07/19/16 07:00 07:00 12:07 WBC RBC Hgb Hct MCV MCH MCHC RDW Plt Count MPV Gran % Lymph % (Auto) [place] % (Auto) Eos % (Auto) Baso % (Auto) Gran # Lymph # [place] # Eos # Baso # PT 10.4 INR 0.96 APTT 26.3 Sodium Potassium Chloride Carbon Dioxide Anion Gap BUN Creatinine Est GFR ( Amer) Est GFR (Non-Af Amer) POC Glucose (mg/dL) 148 H Random Glucose Calcium Triglycerides Cholesterol LDL Cholesterol Direct HDL Cholesterol Blood Type A POSITIVE Blood Type Confirm Antibody Screen Negative BBK History Checked No verified bt Assessment & Plan - Assessment and Plan (Free Text) Plan: 66yo male with history of HTN, HLD, CAD, CHETAN, prostate ca presents for outpatient cardiac catherization and had stent placed in the PDA of the RCA 1. CAD -Patient is s/p cardiac cath with KP stent placement -Continue with ASA and plavix -Continue with IVF -Heart healthy diet -Cardiology consulted - Dr. Cortés 2. DM type 2 -Fingersticks ACHS -Low dose ISS -Heart healthy diet 3. CHF -LVEF ~25% -Continue coreg, aldactone, imdur, hydralazine 4. Hyperlipidemia -Continue with lipitor 5. BPH -Continue finasteride 6. DVT prophylaxis -SCD's Patient seen and case discussed with attending, Dr. Lockhart - Date & Time Date: 07/19/16 Time: 14:16 <Randell Lockhart - Last Filed: 08/09/16 08:26> Results - Vital Signs Recent Vital Signs: Last Vital Signs Temp 98.5 F 07/20/16 05:45 Pulse 77 07/20/16 10:00 Resp 20 07/20/16 05:45 BP 118/61 07/20/16 05:45 Pulse Ox 98 07/20/16 05:45 - Labs Result Diagrams: 07/20/16 08:10 07/20/16 08:10 Attending/Attestation - Attestation I have personally seen and examined this patient.: Yes I have fully participated in the care of the patient.: Yes I have reviewed all pertinent clinical information: Yes Notes (Text): 08/09/16 08:26 Medical record note made by resident after discussion with my direction and input after patient personally seen and examined by me. I have reviewed the chart and agree that the record accurately reflects my personal history, physical, data review and plan.
[2016-07-19] MEDS: Insulin Reg-LOW-Coverage SC SCH ×2 (19:05→21:55)
[2016-07-20 00:07] VITALS: RESP 20
[2016-07-20 05:46] VITALS: BP 118/61; TEMP 98.5; O2SAT 98
[2016-07-20] MEDS: Insulin Reg-LOW-Coverage SC SCH ×2 (07:58→11:46)
[2016-07-20 08:48] LABS: ADD MANUAL DIFF? NO
[2016-07-20 08:53] LABS: BASO # 0.02 K/mm3 (0.0-2.0); BASO % 0.3 % (0.0-3.0); EOS # 0.1 (0.0-0.7); EOS % 1.9 % (1.5-5.0); GRAN # 3.75 (1.4-6.5); GRAN % 64.3 % (50.0-68.0); HEMATOCRIT 34.7 % (42.0-52.0); LYMPH # 1.5 (1.2-3.4); LYMPH % 25.6 % (22.0-35.0); MEAN CELL VOLUME 92.3 fL (80.0-105.0); MEAN CORPUSCULAR HEMOGLOBIN 29.3 pg (25.0-35.0); MEAN CORPUSCULAR HGB CONC 31.7 g/dl (31.0-37.0); MEAN PLATELET VOLUME 10.5 fl (7.0-11.0); MONO # 0.5 (0.1-0.6); MONO % 7.9 % (1.0-6.0); PLATELET COUNT 279 10^3/uL (120.0-450.0); RED CELL DISTRIBUTION WIDTH 14.9 % (11.5-14.5); WHITE BLOOD COUNT 5.8 10^3/ul (4.5-11.0)
[2016-07-20 09:19] LABS: BLOOD UREA NITROGEN 12 mg/dL (7-21); CALCIUM 9.4 mg/dL (8.4-10.5); CARBON DIOXIDE 26 mmol/L (21-33); CHLORIDE 105 mmol/L (98-107); GFR AFRICAN-AMERICAN > 60; GLUCOSE,RANDOM 138 mg/dL (70-110); POTASSIUM 4.1 mmol/L (3.6-5.0); SODIUM 138 mmol/L (132-148)
--- NOTE | 2016-07-20 09:39 | CP.PCM.DIS ---
<Ryan West - Last Filed: 07/20/16 21:55> Provider - Provider Attending physician: Randell Lockhart MD Primary care physician: Charo Singh MD Consults: Cardiology - Dr. Cortés Time Spent in preparation of Discharge (in minutes): 30 Hospital Course - Lab Results Lab Results: Most Recent Lab Values WBC 5.8 10^3/ul (4.5-11.0) 07/20/16 08:10 RBC 3.76 10^6/uL (3.5-6.1) 07/20/16 08:10 Hgb 11.0 gm/dL (14.0-18.0) L 07/20/16 08:10 Hct 34.7 % (42.0-52.0) L 07/20/16 08:10 MCV 92.3 fL (80.0-105.0) 07/20/16 08:10 MCH 29.3 pg (25.0-35.0) 07/20/16 08:10 MCHC 31.7 g/dl (31.0-37.0) 07/20/16 08:10 RDW 14.9 % (11.5-14.5) H 07/20/16 08:10 Plt Count 279 10^3/uL (120.0-450.0) 07/20/16 08:10 MPV 10.5 fl (7.0-11.0) 07/20/16 08:10 Gran % 64.3 % (50.0-68.0) 07/20/16 08:10 Lymph % (Auto) 25.6 % (22.0-35.0) 07/20/16 08:10 [place] % (Auto) 7.9 % (1.0-6.0) H 07/20/16 08:10 Eos % (Auto) 1.9 % (1.5-5.0) 07/20/16 08:10 Baso % (Auto) 0.3 % (0.0-3.0) 07/20/16 08:10 Gran # 3.75 (1.4-6.5) 07/20/16 08:10 Lymph # 1.5 (1.2-3.4) 07/20/16 08:10 [place] # 0.5 (0.1-0.6) 07/20/16 08:10 Eos # 0.1 (0.0-0.7) 07/20/16 08:10 Baso # 0.02 K/mm3 (0.0-2.0) 07/20/16 08:10 PT 10.4 Seconds (9.9-11.8) 07/19/16 07:00 INR 0.96 (0.93-1.08) 07/19/16 07:00 APTT 26.3 Seconds (23.7-30.8) 07/19/16 07:00 Sodium 138 mmol/L (132-148) 07/20/16 08:10 Potassium 4.1 mmol/L (3.6-5.0) 07/20/16 08:10 Chloride 105 mmol/L (98-107) 07/20/16 08:10 Carbon Dioxide 26 mmol/L (21-33) 07/20/16 08:10 Anion Gap 11 (10-20) 07/20/16 08:10 BUN 12 mg/dL (7-21) 07/20/16 08:10 Creatinine 0.9 mg/dL (0.5-1.4) 07/20/16 08:10 Est GFR ( Amer) > 60 07/20/16 08:10 Est GFR (Non-Af Amer) > 60 07/20/16 08:10 POC Glucose (mg/dL) 163 mg/dL (65-110) H 07/20/16 07:19 Random Glucose 138 mg/dL (70-110) H 07/20/16 08:10 Calcium 9.4 mg/dL (8.4-10.5) 07/20/16 08:10 Triglycerides 117 mg/dL (35-160) 07/19/16 07:00 Cholesterol 168 mg/dL (130-200) 07/19/16 07:00 LDL Cholesterol Direct 110 mg/dL (0-129) 07/19/16 07:00 HDL Cholesterol 28 mg/dL (29-60) L 07/19/16 07:00 Blood Type A POSITIVE 07/19/16 07:00 Blood Type Confirm A POSITIVE 07/19/16 06:45 Antibody Screen Negative 07/19/16 07:00 BBK History Checked No verified bt 07/19/16 07:00 - Hospital Course Hospital Course: Patient is a 66yo male with history of hypertension, hyperlipidemia, CAD, CHETAN, CHF (LVEF ~25%), DM type 2, prostate ca s/p radiation that presented for an outpatient cardiac catherization. He was subsequently admitted for post cath overnight observation. He had one KP placed in the PDA of the RCA. He previously presented to [facility] [place] approximately 1 week prior for chest pain that ultimately resulted in a cardiac catherization and stent placement in the circumflex artery. He tolerated the procedure well and had no post-operative complications. He was instructed to continue taking aspirin 81mg PO daily and Plavix 75mg PO daily. He was also instructed to follow up with his primary doctor within 1-2 weeks as well as his brush finisher, Dr. Cortés within 1- 2 weeks. A prescription was provided for plavix and imdur. Patient was agreeable to discharge and understood discharge instructions. - Date & Time of H&P Date of H&P: 07/19/16 Discharge Exam - Head Exam Head Exam: ATRAUMATIC, NORMAL INSPECTION, NORMOCEPHALIC - Eye Exam Eye Exam: EOMI, PERRL - Respiratory Exam Respiratory Exam: Decreased Breath Sounds. absent: Rales, Rhonchi, Wheezes - Cardiovascular Exam Cardiovascular Exam: RRR, +S1, +S2. absent: Gallop, Rubs - GI/Abdominal Exam GI & Abdominal Exam: Soft. absent: Distended, Firm, Guarding, Rebound, Tenderness - Neurological Exam Neurological exam: Alert, Oriented x3 - Skin Skin Exam: Dry, Intact, Normal Color, Warm Discharge Plan - Discharge Medications Prescriptions: Clopidogrel [Plavix] 75 mg PO DAILY #30 tab Isosorbide Mononitrate [Imdur] 30 mg PO DAILY #30 - Follow Up Plan Condition: GOOD Disposition: HOME/ ROUTINE Additional Instructions: 1. Follow up with your primary doctor within 1-2 weeks 2. Follow up with your brush finisher, Dr. Cortés within 3-4 weeks 3. Take aspirin 81mg daily 4. Return to the emergency room should your condition worsen Referrals: Charo Singh MD [Primary Care Provider] - <Mckay Guerrero - Last Filed: 07/27/16 19:29> Provider - Provider Attending physician: Randell Lockhart MD Primary care physician: Charo Singh MD Hospital Course - Lab Results Lab Results: Most Recent Lab Values WBC 5.8 10^3/ul (4.5-11.0) 07/20/16 08:10 RBC 3.76 10^6/uL (3.5-6.1) 07/20/16 08:10 Hgb 11.0 gm/dL (14.0-18.0) L 07/20/16 08:10 Hct 34.7 % (42.0-52.0) L 07/20/16 08:10 MCV 92.3 fL (80.0-105.0) 07/20/16 08:10 MCH 29.3 pg (25.0-35.0) 07/20/16 08:10 MCHC 31.7 g/dl (31.0-37.0) 07/20/16 08:10 RDW 14.9 % (11.5-14.5) H 07/20/16 08:10 Plt Count 279 10^3/uL (120.0-450.0) 07/20/16 08:10 MPV 10.5 fl (7.0-11.0) 07/20/16 08:10 Gran % 64.3 % (50.0-68.0) 07/20/16 08:10 Lymph % (Auto) 25.6 % (22.0-35.0) 07/20/16 08:10 [place] % (Auto) 7.9 % (1.0-6.0) H 07/20/16 08:10 Eos % (Auto) 1.9 % (1.5-5.0) 07/20/16 08:10 Baso % (Auto) 0.3 % (0.0-3.0) 07/20/16 08:10 Gran # 3.75 (1.4-6.5) 07/20/16 08:10 Lymph # 1.5 (1.2-3.4) 07/20/16 08:10 [place] # 0.5 (0.1-0.6) 07/20/16 08:10 Eos # 0.1 (0.0-0.7) 07/20/16 08:10 Baso # 0.02 K/mm3 (0.0-2.0) 07/20/16 08:10 PT 10.4 Seconds (9.9-11.8) 07/19/16 07:00 INR 0.96 (0.93-1.08) 07/19/16 07:00 APTT 26.3 Seconds (23.7-30.8) 07/19/16 07:00 Sodium 138 mmol/L (132-148) 07/20/16 08:10 Potassium 4.1 mmol/L (3.6-5.0) 07/20/16 08:10 Chloride 105 mmol/L (98-107) 07/20/16 08:10 Carbon Dioxide 26 mmol/L (21-33) 07/20/16 08:10 Anion Gap 11 (10-20) 07/20/16 08:10 BUN 12 mg/dL (7-21) 07/20/16 08:10 Creatinine 0.9 mg/dL (0.5-1.4) 07/20/16 08:10 Est GFR ( Amer) > 60 07/20/16 08:10 Est GFR (Non-Af Amer) > 60 07/20/16 08:10 POC Glucose (mg/dL) 171 mg/dL (65-110) H 07/20/16 11:00 Random Glucose 138 mg/dL (70-110) H 07/20/16 08:10 Calcium 9.4 mg/dL (8.4-10.5) 07/20/16 08:10 Triglycerides 117 mg/dL (35-160) 07/19/16 07:00 Cholesterol 168 mg/dL (130-200) 07/19/16 07:00 LDL Cholesterol Direct 110 mg/dL (0-129) 07/19/16 07:00 HDL Cholesterol 28 mg/dL (29-60) L 07/19/16 07:00 Blood Type A POSITIVE 07/19/16 07:00 Blood Type Confirm A POSITIVE 07/19/16 06:45 Antibody Screen Negative 07/19/16 07:00 BBK History Checked No verified bt 07/19/16 07:00 Attending/Attestation - Attestation I have personally seen and examined this patient.: Yes I have fully participated in the care of the patient.: Yes I have reviewed all pertinent clinical information, including history, physical exam and plan: Yes Notes (Text): 07/27/16 19:29 Medical record note made by the resident after discussion with my direction and input after the patient was personally seen and examined by me. I have reviewed the chart and agree that the record accurately reflects by personal performance of the history, physical exam, data review, and medical decision-making, in the course for the patient. I have also personally directed the plan of care.
[2016-07-20 10:13] VITALS: PULSE 77
--- NOTE | 2016-07-20 10:17 | CARD ---
APPROVED REPORT EKG Measurement Heart [id number] VT [id number] <Conclusion> Sinus bradycardia with marked sinus arrhythmia with 1st degree AV block PRWP Left anterior fascicular block PRWP T wave abnormality, consider lateral ischemia No change
--- NOTE | 2016-07-20 13:28 | PN ---
DATE: 07/20/2016 The patient is feeling well. No shortness of breath, no chest pain. PHYSICAL EXAMINATION: VITAL SIGNS: Blood pressure is 118/61, the heart rate is in the 70s. NECK: Negative JVD. LUNGS: Without rales. HEART: Revealed S1, S2. EXTREMITIES: Without edema. The left groin site is stable. Hemoglobin is 11. Chemistries: Glucose is 138. IMPRESSION: 1. Stable post percutaneous transluminal coronary angioplasty and stent. 2. History of recent non-ST elevation myocardial infarction. 3. Diabetes mellitus. 4. Hypercholesterolemia. 5. Hypertension. Given these findings, the patient's cardiac status is stable post percutaneous transluminal coronary angioplasty and stent. The patient is stable for discharge. Followup and instructions have been giv en to the patient. I have arranged to connect the patient with cardiac rehabilitation to start cardi ac risk reduction program. Jt Cortés MD cc: [id number] TT: 07/20/2016 13:27:32 Confirmation # [id number] Dictation # [id number]
--- NOTE | 2016-07-20 13:51 | CARD ---
APPROVED REPORT EKG Measurement Heart [id number] <Conclusion> Sinus bradycardia with 1st degree AV block IVCD Left anterior fascicular block Anterolateral infarct, age undetermined STTW changes c/w ischemia
== END 2016-07-20 13:20 | disposition home or self-care (01) ==
LOC: CATH 06:48 → 2RSO 11:25 → CATH 07-20 13:20
PROVIDERS: ATTEND Internal Medicine
DX: I25.110 Atherosclerotic heart disease of native coronary artery with unstable angina pectoris (principal); Z95.5 Presence of coronary angioplasty implant and graft; I10 Essential (primary) hypertension; G47.33 Obstructive sleep apnea (adult) (pediatric); I50.9 Heart failure, unspecified; E11.9 Type 2 diabetes mellitus without complications; C61 Malignant neoplasm of prostate; Z92.3 Personal history of irradiation; I25.2 Old myocardial infarction; E78.00 Pure hypercholesterolemia, unspecified
CPT/HCPCS: 36415 ×2; 80048 ×2; 80061; 82948 ×2; 85025 ×2; 85576; 85610; 85730; 86850; 86900; 93005 ×2; 93454; 99152; 99153; C1725; C1760; C1769 ×2; C1874; C1887; C2629; C9600; J0583; J1644; J2250; J3010; J7030; J7040; Q9967 ×2

== ENCOUNTER 2017-01-01 13:48 | Emergency (ER) | payer MEDICARE, OTHER ==
[2017-01-01 13:48] VITALS: BMI 33.0
[2017-01-01 14:00] VITALS: TEMP 97.5
--- NOTE | 2017-01-01 16:45 | RAD ---
HISTORY: cough- r/o infiltrate COMPARISON: Comparison is made to 07/11/2016 TECHNIQUE: Chest PA and lateral FINDINGS: LUNGS: Mild pulmonary vascular congestion is noted. There is a small infiltrate noted at the left lung lower lobe. PLEURA: No significant pleural effusion identified. No pneumothorax apparent. CARDIOVASCULAR: The cardiac silhouette is mildly enlarged. Normal. OSSEOUS STRUCTURES: No significant abnormalities. VISUALIZED UPPER ABDOMEN: Normal. OTHER FINDINGS: None. IMPRESSION: Suspicious for small infiltrate at the left lower lung in the retrocardiac space. Mild pulmonary vascular congestion and mild cardiomegaly.
[2017-01-01 17:13] VITALS: BP 115/82; PULSE 80; RESP 16; O2SAT 95
--- NOTE | 2017-01-01 17:48 | ED PDOC ---
Arrival/HPI - General Chief Complaint: Cough, Cold, Congestion Time Seen by Provider: 01/01/17 14:31 Historian: Patient - History of Present Illness Narrative History of Present Illness (Text): 01/01/17 14:35 A 66 year old male, whose past medical history includes CAD with stents, prostate CA, and arthritis, presents to the emergency department complaining of nasal and sinus congestion for 5 days. Patient denies any fever, chest pain, shortness of breath, nausea, vomiting, or any other complaints. Also, patient mentions having been prescribed Zpack for cough, which is now resolved. PMD: Dr. Charo Singh Time/Duration: < week (5 days) Symptom Onset: Sudden Symptom Course: Unchanged Past Medical History - Provider Review Nursing Documentation Reviewed: Yes - Infectious Disease Hx of Infectious Diseases: None - Tetanus Immunization Tetanus Immunization: Unknown - Cardiac Hx Cardiac Disorders: Yes Hx Pacemaker: No Other/Comment: 3 stents - Pulmonary Hx Respiratory Disorders: No - Neurological Hx Paralysis: No - HEENT Other/Comment: glasses. - Renal Hx Renal Disorder: No - Endocrine/Metabolic Hx Endocrine Disorders: No - Hematological/Oncological Hx Blood Disorders: Yes Hx Blood Transfusions: No Hx Cancer: Yes (prostate CA hx) - Integumentary Hx Dermatological Disorder: No - Musculoskeletal/Rheumatological Hx Musculoskeletal Disorders: Yes Hx Arthritis: Yes - Gastrointestinal Hx Gastrointestinal Disorders: No - Genitourinary/Gynecological Hx Genitourinary Disorders: Yes Hx Prostate Problems: Yes (prostate ca (under treatment)) - Psychiatric Hx Emotional Abuse: No Hx Physical Abuse: No Hx Substance Use: No - Surgical History Hx Cardiac Catheterization: Yes Hx Coronary Stent: Yes (x3) - Anesthesia Hx Anesthesia: Yes Hx Anesthesia Reactions: No Hx Malignant Hyperthermia: No - Suicidal Assessment Feels Threatened In Home Enviroment: No Family/Social History - Physician Review Nursing Documentation Reviewed: Yes Family/Social History: No Known Family HX Smoking Status: Former Smoker Hx Alcohol Use: No Hx Substance Use: No Allergies/Home Meds Allergies/Adverse Reactions: Allergies enalapril Allergy (Intermediate, Verified 01/01/17 13:55) ANGIOEDEMA Home Medications: Home Meds Medication Instructions Recorded Confirmed Tamsulosin [Flomax] 0.4 mg PO BID 06/09/14 01/01/17 hydrALAZINE [Apresoline] 25 mg PO TID 06/09/14 01/01/17 Carvedilol [Coreg] 25 mg PO BID 07/11/16 01/01/17 Cholecalciferol [Vitamin D 1000 IU] 50,000 unit PO QWK 07/11/16 01/01/17 Finasteride [Proscar] 5 mg PO DAILY 07/11/16 01/01/17 Review of Systems - Physician Review All systems were reviewed & negative as marked: Yes - Review of Systems Constitutional: absent: Fevers ENT: Sinus Congestion (and nasal congestion) Respiratory: absent: SOB Cardiovascular: absent: Chest Pain Gastrointestinal: absent: Nausea, Vomiting Physical Exam Vital Signs Reviewed: Yes Vital Signs Temp Pulse Resp BP Pulse Ox 01/01/17 16:03 80 16 115/82 95 01/01/17 13:56 97.5 F L 71 18 102/67 94 L Temperature: Afebrile Blood Pressure: Normal Pulse: Regular Respiratory Rate: Normal Appearance: Positive for: Well-Appearing Mental Status: Positive for: Alert and Oriented X 3 - Systems Exam Head: Present: Tenderness (frontal sinus tenderness b/l and left maxillary sinus tenderness) Pupils: Present: PERRL Extroacular Muscles: Present: EOMI Conjunctiva: Present: Normal Mouth: Present: Moist Mucous Membranes Neck: Present: Normal Range of Motion Respiratory/Chest: Present: Clear to Auscultation, Good Air Exchange. No: Respiratory Distress, Accessory Muscle Use Cardiovascular: Present: Regular Rate and Rhythm, Normal S1, S2. No: Murmurs Abdomen: Present: Normal Bowel Sounds. No: Tenderness, Distention, Peritoneal Signs Back: Present: Normal Inspection Upper Extremity: Present: Normal Inspection. No: Cyanosis, Edema Lower Extremity: Present: Normal Inspection. No: Edema Neurological: Present: GCS=15, CN II-XII Intact, Speech Normal Skin: Present: Warm, Dry, Normal Color. No: Rashes Psychiatric: Present: Alert, Oriented x 3, Normal Insight, Normal Concentration Medical Decision Making ED Course and Treatment: 01/01/17 14:40 Impression: 66 year old male with nasal and sinus congestion. Physical exam shows frontal sinus tenderness b/l and left maxillary sinus tenderness; rest of exam is benign. Plan: -- Chest X-ray -- Serology -- Reassess and disposition Progress Notes: 01/01/2017 16:44 Chest X-ray IMPRESSION: Suspicious for small infiltrate at the left lower lung in the retrocardiac space. Mild pulomonary vascular congestion and mild cardiomegaly. Dictator: Ramírez Romo MD - Lab Interpretations Lab Results: Lab Results 01/01/17 14:35: Influenza Typ A,B (EIA) Negative for flu a/b I have reviewed the lab results: Yes - RAD Interpretation Radiology Orders: 01/01/17 14:31 CHEST TWO VIEWS (PA/LAT) [RAD] Stat - Scribe Statement The provider has reviewed the documentation as recorded by the Penelope Ray Provider Scribe Attestation: All medical record entries made by the Scribe were at my direction and personally dictated by me. I have reviewed the chart and agree that the record accurately reflects my personal performance of the history, physical exam, medical decision making, and the department course for this patient. I have also personally directed, reviewed, and agree with the discharge instructions and disposition. Disposition/Present on Arrival - Present on Arrival Any Indicators Present on Arrival: No History of DVT/PE: No History of Uncontrolled Diabetes: No Urinary Catheter: No History of Decub. Ulcer: No History Surgical Site Infection Following: None - Disposition Have Diagnosis and Disposition been Completed?: Yes Diagnosis: Sinusitis Disposition: HOME/ ROUTINE Disposition Time: 15:45 Condition: GOOD Discharge Instructions (ExitCare): Sinusitis (ED) Additional Instructions: Thank you for letting us take care of you today. The emergency medical care you received today was directed at your acute symptoms. If you were prescribed any medication, please fill it and take as directed. It may take several days for your symptoms to resolve. Return to the Emergency Department if your symptoms worsen, do not improve, or if you have any other problems. Please contact your doctor or call one of the physicians/clinics you have been referred to that are listed on the Patient Visit Information form that is included in your discharge packet. Bring any paperwork you were given at discharge with you along with any medications you are taking to your follow up visit. Our treatment cannot replace ongoing medical care by a primary care provider (PCP) outside of the emergency department. Thank you for allowing the [facility] team to be part of your care today. Follow up with your doctor in 3-4 days for re-evaluation and further management. Prescriptions: Amoxicillin/Clavulanate [Augmentin 875 MG-125 MG] 1 tab PO Q12 #14 tab Referrals: Charo Singh MD [Primary Care Provider] - Follow up with primary Forms: [employer] (Azeri)
--- NOTE | 2017-01-02 10:05 | CARD ---
APPROVED REPORT EKG Measurement Heart [id number] <Conclusion> Sinus rhythm with 1st degree AV block IVCD Left anterior fascicular block T wave abnormality, consider lateral ischemia No change
== END 2017-01-01 16:00 | disposition home or self-care (01) ==
LOC: ED 13:48
DX: J32.9 Chronic sinusitis, unspecified (principal); I25.10 Atherosclerotic heart disease of native coronary artery without angina pectoris; Z98.61 Coronary angioplasty status; Z87.891 Personal history of nicotine dependence

== ENCOUNTER 2017-04-19 07:53 | Day surgery (SDC) | payer MEDICARE, OTHER ==
[2017-04-18 12:13] VITALS: BMI 32.3
[2017-04-19 08:25] LABS: BASO # 0.02 K/mm3 (0.0-2.0); BASO % 0.4 % (0.0-3.0); EOS # 0.1 (0.0-0.7); EOS % 2.3 % (1.5-5.0); GRAN # 3.16 (1.4-6.5); GRAN % 61.1 % (50.0-68.0); HEMOGLOBIN 11.7 g/dL (14.0-18.0); LYMPH # 1.4 (1.2-3.4); LYMPH % 26.7 % (22.0-35.0); MEAN CORPUSCULAR HEMOGLOBIN 29.2 pg (25.0-35.0); MEAN CORPUSCULAR HGB CONC 32.4 g/dl (31.0-37.0); MEAN PLATELET VOLUME 10.3 fl (7.0-11.0); MONO # 0.5 (0.1-0.6); MONO % 9.5 % (1.0-6.0); RBC 4.01 10^6/uL (3.5-6.1); RED CELL DISTRIBUTION WIDTH 16.4 % (11.5-14.5); WHITE BLOOD COUNT 5.2 10^3/ul (4.5-11.0)
[2017-04-19 08:35] LABS: BLOOD UREA NITROGEN 14 mg/dL (7-21); CALCIUM 9.3 mg/dL (8.4-10.5); GFR AFRICAN-AMERICAN > 60; GFR NON-AFRICAN AMERICAN > 60
[2017-04-19 08:40] LABS: INR 1.08 (0.93-1.08); PROTHROMBIN TIME 12.4 SECONDS (9.4-12.5)
[2017-04-19 08:41] LABS: PARTIAL THROMBOPLASTIN TIME 25.8 Seconds (25.1-36.5)
[2017-04-19] MEDS ORDERED: Lidocaine 2% Inj (20ml) ONE (09:10)
[2017-04-19] MEDS ORDERED: Midazolam 2 MG/2 ML VIAL ONE ×2 (09:10→10:21)
[2017-04-19] MEDS ORDERED: Iohexol 350mgl/ml 50 ML ONE (09:11)
[2017-04-19] MEDS ORDERED: Iodixanol 320 MG/ML 200 ML BOTTLE IV ONE (09:11)
[2017-04-19] MEDS ORDERED: HEPARIN SODIUM/NS 2,000 ML IV ONE (09:11)
[2017-04-19] MEDS ORDERED: Sodium Chloride 0.45% 1,000 ML IV SCH (11:00)
--- NOTE | 2017-04-19 13:17 | CARDCATH ---
PROCEDURE DATE: 04/19/2017 CARDIAC CATHETERIZATION AND PTCA HISTORY: The patient is a 66-year-old male with a history of severely dilated cardiomyopathy as well as PTCA and stent of 3 vessels in the past, who presents with exertional angina and an abnormal stress test. Because of this, cardiac catheterization was recommended. PROCEDURE: Left heart catheterization with coronary arteriography and left ventriculogram followed by PTCA and stent of the circumflex artery. The right femoral artery was cannulated with a 6-Lao sheath. There were no complications. I performed moderate sedation, which included the presence of an independent trained observer that assisted in monitoring the patient's level of consciousness and physiologic status. After administration of Versed and fentanyl, my intra service time was 30 minutes. The findings on catheterization revealed a left ventricle that was dilated and globally hypokinetic. Estimated ejection fraction is between 20% and 25%. His coronary anatomy revealed a right dominant circulation. The RCA revealed intimal irregularities without critical lesions. There is a patent stent in the mid PDA. The left main artery is unremarkable. The LAD and diagonal vessels revealed diffuse intimal irregularities without critical lesions. The circumflex artery in its midportion revealed an in-stent restenosis of 80%. This patient was started on intravenous Angiomax on the fluoroscopic guide, the guiding catheter was placed in the ostium of the left main artery. An 0.014 ATW wire was used to cross the critical lesion. A 3.0 x 12 mm balloon was utilized to predilate the lesion. This was followed by implantation of a 3.5 x 15 mm drug-eluting stent, which was deployed at 16 atmospheres of pressure. After balloon deflation and removal, repeat coronary artery revealed an excellent result with no residual stenosis and HARSHA III flow. Angio-Seal was used to close the femoral artery site. The patient tolerated the procedure well. In summary, the procedure was successful for PTCA and stent of a 80% stenosis in the mid circumflex artery, which was a in-stent restenosis. A 3.5 x 15 mm drug-eluting stent was utilized. Cardiac catheterization revealed a patent stent in the PDA, the 80% stenosis in the circumflex artery. LV function is globally hypokinetic with an EF of 20-25%. Given these findings, the patient will need to remain on aspirin indefinitely and Plavix for at least a year. We will add an BEE inhibitor to help his LV function. The patient will need to undergo a strict cardiac risk reduction program. Jt Cortés MD
--- NOTE | 2017-04-19 17:45 | CARD ---
APPROVED REPORT EKG Measurement Heart [id number] <Conclusion> Sinus rhythm with 1st degree AV block Left anterior fascicular block Anterolateral infarct, age undetermined Abnormal ECG
--- NOTE | 2017-04-19 17:48 | CARD ---
APPROVED REPORT EKG Measurement Heart [id number] <Conclusion> Sinus rhythm with 1st degree AV block Left anterior fascicular block Possible Lateral infarct, age undetermined Abnormal ECG
--- NOTE | 2017-04-19 23:21 | HP ---
HISTORY OF PRESENT ILLNESS: I was called down by Dr. Jt Cortés, the crankshaft straightener, to take a look at Sukhwinder and put him on my service. He is status post cardiac cath with stent placement. I saw him on the stretcher after the cardiac cath with family. He has unstable angina. He did have a cath on 07/20/2016, with three stents placed. He is comfortable now status post procedure. PAST MEDICAL HISTORY: He has a history of sleep apnea, CAD, hyperlipidemia, hypertension, arthritis, CPAP, history of cancer. He does need a new CPAP machine; the one at home malfunctioned. His prostate cancer radiation completed 2 years ago. He had a cardiac cath last week with stent change as per . SOCIAL HISTORY: He quit smoking 6 years ago. No alcohol or substance abuse. PAST SURGICAL HISTORY: Multiple cardiac stents. FAMILY HISTORY: Heart disease with his mother. Does have chest pain and that is the reason why this whole thing got started. He wears glasses. Alert and oriented x3. He does have arthritis, partial dentures, upper. ALLERGIES: HE HAS ALLERGIES TO ENALAPRIL. MEDICATIONS: He is currently on Ecotrin, Lipitor, Plavix and IV fluids and will be on that overnight. REVIEW OF SYSTEMS: No acute vision changes. No hearing changes. No sore throat. No neck pain. No chest pain or palpitations at this time. No shortness of breath or cough. No abdominal pain, nausea, vomiting, constipation, diarrhea. His legs are comfortable. No apparent skin issues at this time. He can urinate well. PHYSICAL EXAMINATION: VITAL SIGNS: 97.2 temperature, 72 pulse, 122/79 blood pressure, 18 respiratory rate, 95% sat on room air. HEENT: Head is atraumatic, normocephalic. Throat is moist. NECK: Supple. HEART: Regular rate. LUNGS: Decreased breath sounds, but clear. ABDOMEN: Soft. Positive bowel sounds. No guarding, no rebound. EXTREMITIES: No edema. SKIN: From what I could tell, is intact. NEUROLOGIC: Cranial nerves II through XII grossly intact. Thyroid midline, no appreciable lymphadenopathy. LABORATORY DATA: He has 140 sodium, potassium 4.2, BUN 14, creatinine 1, GFR is greater than 60, sugar is 151. We will keep an eye on his blood sugar. No history of diabetes, calcium is 9.3. INR is 1.08. 5.2 white count, 11.7 hemoglobin, 36.1 hematocrit with 202 platelets. We are going to keep him overnight. We will check his labs tomorrow. He will for 6 hours He understands the plan and hopefully tomorrow, if he does well tonight, we will discharge him. Patient had a unstable angina, coronary artery disease with placement of stent, hypertension, benign prostatic hypertrophy, low vitamin D and elevated blood sugar. Ramón Turk DO MTDDolly
[2017-04-20 00:07] VITALS: RESP 20; TEMP 98.6; O2SAT 99
[2017-04-20 05:49] VITALS: BP 139/88; PULSE 86
[2017-04-20 06:54] LABS: BASO # 0.03 K/mm3 (0.0-2.0); BASO % 0.6 % (0.0-3.0); EOS # 0.1 (0.0-0.7); EOS % 1.8 % (1.5-5.0); GRAN # 3.09 (1.4-6.5); GRAN % 60.3 % (50.0-68.0); HEMOGLOBIN 11.7 g/dL (14.0-18.0); LYMPH # 1.5 (1.2-3.4); LYMPH % 28.5 % (22.0-35.0); MEAN CELL VOLUME 90.4 fl (80.0-105.0); MEAN CORPUSCULAR HEMOGLOBIN 28.7 pg (25.0-35.0); MEAN CORPUSCULAR HGB CONC 31.7 g/dl (31.0-37.0); MEAN PLATELET VOLUME 10.3 fl (7.0-11.0); MONO # 0.5 (0.1-0.6); MONO % 8.8 % (1.0-6.0); RBC 4.08 10^6/uL (3.5-6.1); RED CELL DISTRIBUTION WIDTH 16.8 % (11.5-14.5); WHITE BLOOD COUNT 5.1 10^3/ul (4.5-11.0)
[2017-04-20 07:14] LABS: ALBUMIN 3.7 g/dL (3.0-4.8); ALT/SGPT 36 U/L (7-56); AST/SGOT 31 U/L (17-59); BLOOD UREA NITROGEN 15 mg/dL (7-21); CALCIUM 9.6 mg/dL (8.4-10.5); GFR AFRICAN-AMERICAN > 60; GFR NON-AFRICAN AMERICAN > 60
--- NOTE | 2017-04-20 11:55 | PN ---
DATE: 04/20/2017 CARDIOLOGY FOLLOWUP SUBJECTIVE: The patient is ambulating without symptoms. PHYSICAL EXAMINATION: VITAL SIGNS: Blood pressure is 139/88 with heart rates in the 80s. NECK: Negative JVD. LUNGS: Without rales. HEART: Reveals S1, S2. EXTREMITIES: Without edema. The right groin site is stable. LABORATORY DATA: Hemoglobin is 11.7. Chemistries: Glucose is 152. IMPRESSION: 1. Stable post percutaneous transluminal coronary angioplasty and stent of the circumflex artery. 2. Hypertension. 3. Hypercholesterolemia. 4. Dilated cardiomyopathy. PLAN: Given these findings, the patient is doing well. We will need to add an BEE inhibitor for his compromised left ventricle. Jt Cortés MD
--- NOTE | 2017-04-21 04:40 | DS ---
HISTORY OF PRESENT ILLNESS: He slept well last night. He is in good spirits. He has no complaints this morning. He is status post cardiac catheterization and stent placement with Dr. Cortés yesterday. He will be discharged today. He has no complaints this morning. No chest pain. No shortness of breath. No abdominal pain. He did walk. He is hungry. MEDICATIONS: He is on Flomax, Proscar, Plavix, vitamin D, Coreg, Lipitor, Ecotrin. PHYSICAL EXAMINATION: VITAL SIGNS: He has a 98.6 temperature, 86 pulse, 139/88 blood pressure, 20 respiratory rate, and 99% O2 saturation on room air. HEENT: Head is atraumatic, normocephalic. HEART: Regular rate. LUNGS: Clear to auscultation. ABDOMEN: Soft. EXTREMITIES: No edema. LABORATORY DATA: He has a 5.1 white count, 11.7 hemoglobin, 36.9 hematocrit with 206 platelets; 1.08 INR. He has got 140 sodium, potassium 4.1, BUN 15, creatinine 1, GFR is greater than 60, sugars is 152, calcium 9.6. Total bili is 1.5, AST is 31, ALT is 36, alk phos 68, total protein 7.5. ASSESSMENT AND PLAN: My only issue so far with him is that he has had two elevated blood sugars and he is not a diabetic and is not on any medications for diabetes. He has to follow up with his primary care doctor on the outpatient to rule out diabetes and he will be discharged after Dr. Cortés sees him. Ramón Turk DO MTDDolly
== END 2017-04-20 12:32 | disposition home or self-care (01) ==
LOC: CATH 07:53 → 2RNO 11:11 → CATH 04-20 12:32
PROVIDERS: ATTEND Internal Medicine Cardiovascular Disease
DX: I25.110 Atherosclerotic heart disease of native coronary artery with unstable angina pectoris (principal); T82.855A Stenosis of coronary artery stent, initial encounter; E78.00 Pure hypercholesterolemia, unspecified; E78.5 Hyperlipidemia, unspecified; G47.30 Sleep apnea, unspecified; I10 Essential (primary) hypertension; I42.0 Dilated cardiomyopathy; I44.0 Atrioventricular block, first degree; Z79.82 Long term (current) use of aspirin; Z85.46 Personal history of malignant neoplasm of prostate; Z87.891 Personal history of nicotine dependence; Z95.5 Presence of coronary angioplasty implant and graft; Z92.3 Personal history of irradiation; N40.0 Benign prostatic hyperplasia without lower urinary tract symptoms
CPT/HCPCS: 36415; 80048; 85025; 85610; 85730; 86850; 86900; 93005; 93458; 99152; 99153; C1725; C1769 ×2; C1874; C1887; C2629; C9600; J0583; J1644; J2250; J3010; J7030; J7040; Q9967

== ENCOUNTER 2017-05-30 09:16 | Emergency (ER) | payer MEDICARE, OTHER ==
[2017-05-30 09:17] VITALS: BMI 32.3
[2017-05-30 09:28] VITALS: TEMP 97.9
[2017-05-30] MEDS ORDERED: guaiFENesin DM 200 mg-20 mg/10 ml UD PO STA (09:56)
--- NOTE | 2017-05-30 10:02 | ED PDOC ---
Arrival/HPI - General Chief Complaint: Cough, Cold, Congestion Time Seen by Provider: 05/30/17 09:24 Historian: Patient, Spouse () - History of Present Illness Narrative History of Present Illness (Text): 05/30/17 09:53 A 67 year old male, whose past medical history includes hypertension, hyperlipidemia, CAD with 3 stents (last stent placed 04/20/2017), prostate CA, and arthritis, presents to the emergency department complaining of cough for 3- 4 days. Patient reports cough worsens at night. Notes also experiencing tightness in throat, trapped with mucuous, describes as a tingling feeling in throat. Patient states symptoms worsen at night and is unable to sleep due to this. Patient denies any chest pain, shortness of breath, back pain, sore throat , or any other complaints at this time. Also, patient has never used albuterol treatment. PMD: Dr. Charo Singh Time/Duration: < week (3-4 days) Past Medical History - Provider Review Nursing Documentation Reviewed: Yes - Infectious Disease Hx of Infectious Diseases: None - Tetanus Immunization Tetanus Immunization: Unknown - Cardiac Hx Pacemaker: No - Pulmonary Hx Respiratory Disorders: No - Neurological Hx Paralysis: No - HEENT Other/Comment: glasses. - Renal Hx Renal Disorder: No - Endocrine/Metabolic Hx Endocrine Disorders: No - Hematological/Oncological Hx Blood Transfusions: No - Integumentary Hx Dermatological Disorder: No - Musculoskeletal/Rheumatological Hx Musculoskeletal Disorders: Yes - Gastrointestinal Hx Gastrointestinal Disorders: No - Genitourinary/Gynecological Hx Genitourinary Disorders: Yes Hx Prostate Problems: Yes (prostate ca (under treatment)) - Psychiatric Hx Emotional Abuse: No Hx Physical Abuse: No Hx Substance Use: No - Surgical History Hx Cardiac Catheterization: Yes Hx Coronary Stent: Yes (x3) - Anesthesia Hx Anesthesia Reactions: No Hx Malignant Hyperthermia: No - Suicidal Assessment Feels Threatened In Home Enviroment: No Family/Social History - Physician Review Nursing Documentation Reviewed: Yes Family/Social History: No Known Family HX Smoking Status: Former Smoker Hx Alcohol Use: No Hx Substance Use: No Allergies/Home Meds Allergies/Adverse Reactions: Allergies enalapril Allergy (Intermediate, Verified 05/30/17 09:24) ANGIOEDEMA Home Medications: Home Meds Medication Instructions Recorded Confirmed Tamsulosin [Flomax] 0.4 mg PO BID 06/09/14 05/30/17 hydrALAZINE [Apresoline] 25 mg PO TID 06/09/14 05/30/17 Carvedilol [Coreg] 12.5 mg PO BID 07/11/16 05/30/17 Cholecalciferol [Vitamin D 1000 IU] 50,000 unit PO QWK 07/11/16 05/30/17 Finasteride [Proscar] 5 mg PO DAILY 07/11/16 05/30/17 Review of Systems - Physician Review All systems were reviewed & negative as marked: Yes - Review of Systems ENT: absent: Sore Throat (however notes feeling tightness in throat, trapped with mucuous, describes as tingling feeling (worse at night)) Respiratory: Cough (wrose at night). absent: SOB Cardiovascular: absent: Chest Pain Musculoskeletal: Myalgias (baseline). absent: Back Pain Physical Exam Vital Signs Reviewed: Yes Vital Signs Temp Pulse Resp BP Pulse Ox 05/30/17 11:20 79 18 131/75 100 05/30/17 09:25 97.9 F 86 16 135/83 96 Temperature: Afebrile Blood Pressure: Normal Pulse: Regular Respiratory Rate: Normal Appearance: Positive for: Well-Appearing Pain Distress: None Mental Status: Positive for: Alert and Oriented X 3 - Systems Exam Head: Present: Atraumatic, Normocephalic Pupils: Present: PERRL Extroacular Muscles: Present: EOMI Conjunctiva: Present: Normal Mouth: Present: Moist Mucous Membranes Neck: Present: Normal Range of Motion Respiratory/Chest: Present: Clear to Auscultation, Good Air Exchange. No: Respiratory Distress, Accessory Muscle Use Cardiovascular: Present: Regular Rate and Rhythm, Normal S1, S2. No: Murmurs Abdomen: No: Tenderness, Distention, Peritoneal Signs Back: Present: Normal Inspection Upper Extremity: Present: Normal Inspection. No: Cyanosis, Edema Lower Extremity: Present: Normal Inspection. No: Edema Neurological: Present: GCS=15, CN II-XII Intact, Speech Normal Skin: Present: Warm, Dry, Normal Color. No: Rashes Psychiatric: Present: Alert, Oriented x 3, Normal Insight, Normal Concentration Medical Decision Making ED Course and Treatment: 05/30/17 09:56 Impression: 67 year old male with cough. No acute findings on physical exam. Differential Diagnosis included but are not limited to: Pneumonia vs. Upper Respiratory Infection. Plan: -- Chest X-ray -- Robitussin -- Influenza A B Stat -- Reassess and disposition Prior Visits: Notes and results from previous visits were reviewed. Patient was last seen in the emergency department on 01/01/2017 for nasal and sinus congestion. Patient was discharged home. Progress Notes: 05/30/2017 11:26 Chest X-ray IMPRESSION: No focal consolidation. The interstitial markings are increased and coarsened with scattered peribronchial cuffing changes. Rule out sequela of reactive/ inflammatory airway disease or viral illness. The possibility of developing interstitial pneumonia not excluded. There also appears to be some mild biapical pleural thickening. Dictator: Tunde Terrell 05/30/17 11:37 Upon reevaluation, patient continues to deny chest pain or shortness of breathe. I reviewed with patient results of Chest X-ray. Prescribed Levaquin PO. Patient advised to follow-up with PMD if symptoms worsen and to take Levaquin PO daily as prescribed. Advised to return to the ED with sob, cp or any other concerns. - Lab Interpretations Lab Results: Lab Results 05/30/17 10:00: Influenza Typ A,B (EIA) Negative for flu a/b I have reviewed the lab results: Yes - RAD Interpretation Radiology Orders: 05/30/17 09:56 CHEST TWO VIEWS (PA/LAT) [RAD] Stat - Medication Orders Current Medication Orders: Discontinued Medications Guaifenesin/Dextromethorphan (Robitussin Dm) 10 ml PO STAT STA Stop: 05/30/17 09:57 Last Admin: 05/30/17 10:16 Dose: 10 ml Levofloxacin (Levaquin) 750 mg PO STAT STA PRN Reason: Protocol Stop: 05/30/17 11:33 - Scribe Statement The provider has reviewed the documentation as recorded by the Penelope Ray Provider Scribe Attestation: All medical record entries made by the Scribcorrina were at my direction and personally dictated by me. I have reviewed the chart and agree that the record accurately reflects my personal performance of the history, physical exam, medical decision making, and the department course for this patient. I have also personally directed, reviewed, and agree with the discharge instructions and disposition. Disposition/Present on Arrival - Present on Arrival Any Indicators Present on Arrival: No History of DVT/PE: No History of Uncontrolled Diabetes: No Urinary Catheter: No History of Decub. Ulcer: No History Surgical Site Infection Following: None - Disposition Have Diagnosis and Disposition been Completed?: Yes Diagnosis: Pneumonia Disposition: HOME/ ROUTINE Disposition Time: 11:40 Patient Plan: Discharge Condition: IMPROVED Discharge Instructions (ExitCare): Pneumonia in Adults Additional Instructions: Mr Lester, thank you for letting us take care of you today. Your provider was Dr. Arredondo. You were treated for Pneumonia. The emergency medical care you received today was directed at your acute symptoms. If you were prescribed any medication, please fill it and take as directed. It may take several days for your symptoms to resolve. Return to the Emergency Department if your symptoms worsen, do not improve, or if you have any other problems. Please contact your doctor or call one of the physicians/clinics you have been referred to that are listed on the Patient Visit Information form that is included in your discharge packet. Bring any paperwork you were given at discharge with you along with any medications you are taking to your follow up visit. Our treatment cannot replace ongoing medical care by a primary care provider (PCP) outside of the emergency department. Thank you for allowing the [email or web address] team to be part of your care today. If you had an X-Ray or CT scan: A Radiologist will review the ED reading if any change in treatment is needed we will contact you. If you had a blood, urine, or wound culture: It will take several days for the results, if any change in treatment is needed we will contact you. If you had an STI test: It will take 48 hours for the results. Please call after 1 week if you have not heard back. Prescriptions: Albuterol HFA [Ventolin HFA 90 mcg/actuation (8 g)] 2 puff IH Q4 #1 puff guaiFENesin/Dextromethorphan [guaiFENesin-DM] 10 ml PO Q8 #1 bottle Levofloxacin [Levaquin] 750 mg PO DAILY #4 tablet Referrals: Charo Singh MD [Primary Care Provider] - Follow up with primary Forms: [employer] ([place]ian), WORK NOTE
[2017-05-30 11:21] VITALS: BP 131/75; PULSE 79; RESP 18; O2SAT 100
--- NOTE | 2017-05-30 11:28 | RAD ---
HISTORY: Cough ; rule out pneumonia. COMPARISON: No prior. TECHNIQUE: Chest PA and lateral FINDINGS: LUNGS: No focal consolidation. The interstitial markings are increased and coarsened with scattered peribronchial cuffing changes. Rule out sequela of reactive/ inflammatory airway disease or viral illness. The possibility of developing interstitial pneumonia not excluded. . There also appears to be some mild biapical pleural thickening PLEURA: As above. In No significant pleural effusion identified. No pneumothorax apparent. CARDIOVASCULAR: Heart size is upper limits of normal/borderline enlarged. OSSEOUS STRUCTURES: Mild multilevel degenerative spondylosis of the thoracic spine VISUALIZED UPPER ABDOMEN: Normal. OTHER FINDINGS: None. IMPRESSION: No focal consolidation. The interstitial markings are increased and coarsened with scattered peribronchial cuffing changes. Rule out sequela of reactive/ inflammatory airway disease or viral illness. The possibility of developing interstitial pneumonia not excluded. . There also appears to be some mild biapical pleural thickening
[2017-05-30] MEDS ORDERED: levoFLOXacin 750 MG TAB PO STA (11:32)
== END 2017-05-30 11:50 | disposition home or self-care (01) ==
LOC: ED 09:16
DX: J18.9 Pneumonia, unspecified organism (principal); I10 Essential (primary) hypertension; E78.5 Hyperlipidemia, unspecified; I25.10 Atherosclerotic heart disease of native coronary artery without angina pectoris; Z85.46 Personal history of malignant neoplasm of prostate; Z87.891 Personal history of nicotine dependence

== ENCOUNTER 2017-12-27 10:20 | Observation (INO) | payer MEDICARE, OTHER ==
--- NOTE | 2017-12-27 10:54 | ED PDOC ---
Arrival/HPI - General Chief Complaint: Palpitations Historian: Patient - History of Present Illness Narrative History of Present Illness (Text): 12/27/17 10:43 67yo male with pmhx of dyslipdemia, hypertension, BPH, CAD s/p 3sten - 2016 referred to ED by Dr. Cortés for admission. Per patient he goes to Cardiac rehab weekly and while he was there yesterday EKG was done which showed Afib. Patient states the rehab center spoke with Dr. Cortés, and he recommended that he come in to ED today at 1000am for admission. Patient reports history of intermittent SOB s/p getting a stent. He otherwise denies palpitation, chest pain, cough, diaphoresis, nausea, vomiting, any other complaint Past Medical History - Provider Review Nursing Documentation Reviewed: Yes - Infectious Disease Hx of Infectious Diseases: None - Tetanus Immunization Tetanus Immunization: Unknown - Cardiac Hx Hypertension: Yes Hx Pacemaker: No - Pulmonary Hx Respiratory Disorders: No - Neurological Hx Paralysis: No - HEENT Other/Comment: glasses. - Renal Hx Renal Disorder: No - Endocrine/Metabolic Hx Endocrine Disorders: No - Hematological/Oncological Hx Blood Transfusions: No - Integumentary Hx Dermatological Disorder: No - Musculoskeletal/Rheumatological Hx Musculoskeletal Disorders: Yes Hx Arthritis: Yes (Bilateral Knee) Hx Gout: Yes - Gastrointestinal Hx Gastrointestinal Disorders: No - Genitourinary/Gynecological Hx Genitourinary Disorders: Yes Hx Prostate Problems: Yes (prostate ca (under treatment)) - Psychiatric Hx Emotional Abuse: No Hx Physical Abuse: No Hx Substance Use: No - Surgical History Hx Cardiac Catheterization: Yes Hx Coronary Stent: Yes (x3) - Anesthesia Hx Anesthesia: Yes Hx Anesthesia Reactions: No Hx Malignant Hyperthermia: No - Suicidal Assessment Feels Threatened In Home Enviroment: No Family/Social History - Physician Review Nursing Documentation Reviewed: Yes Family/Social History: Unknown Family HX Smoking Status: Former Smoker Hx Alcohol Use: No Hx Substance Use: No Allergies/Home Meds Allergies/Adverse Reactions: Allergies enalapril Allergy (Intermediate, Verified 05/30/17 09:24) ANGIOEDEMA Home Medications: Home Meds Medication Instructions Recorded Confirmed Tamsulosin [Flomax] 0.4 mg PO DAILY 06/09/14 12/27/17 hydrALAZINE [Apresoline] 25 mg PO TID 06/09/14 12/27/17 Carvedilol [Coreg] 12.5 mg PO BID 07/11/16 12/27/17 Finasteride [Proscar] 5 mg PO DAILY 07/11/16 12/27/17 Atorvastatin [Lipitor] 40 mg PO DAILY 12/27/17 12/27/17 Cholecalciferol (Vitamin D3) 2,000 unit PO DAILY 12/27/17 12/27/17 [Vitamin D3] metFORMIN [glucOPHAGE] 500 mg PO BID 12/27/17 12/27/17 Review of Systems - Physician Review All systems were reviewed & negative as marked: Yes - Review of Systems Constitutional: Normal Eyes: Normal ENT: Normal Respiratory: Normal Cardiovascular: Other (Arrhythmia) Gastrointestinal: Normal Genitourinary Male: Normal Musculoskeletal: Normal Skin: Normal Neurological: Normal Endocrine: Normal Hemo/Lymphatic: Normal Psychiatric: Normal Physical Exam Vital Signs Reviewed: Yes Temperature: Afebrile Blood Pressure: Normal Pulse: Regular Respiratory Rate: Normal Appearance: Positive for: Well-Appearing, Non-Toxic, Comfortable Pain Distress: None Mental Status: Positive for: Alert and Oriented X 3 - Systems Exam Head: Present: Atraumatic, Normocephalic Pupils: Present: PERRL Extroacular Muscles: Present: EOMI Conjunctiva: Present: Normal Mouth: Present: Moist Mucous Membranes Neck: Present: Normal Range of Motion Respiratory/Chest: Present: Clear to Auscultation, Good Air Exchange. No: Respiratory Distress, Accessory Muscle Use Cardiovascular: Present: Regular Rate and Rhythm, Normal S1, S2. No: Murmurs Abdomen: No: Tenderness, Distention, Peritoneal Signs Back: Present: Normal Inspection Upper Extremity: Present: Normal Inspection. No: Cyanosis, Edema Lower Extremity: Present: Normal Inspection. No: Edema Neurological: Present: GCS=15, CN II-XII Intact, Speech Normal Skin: Present: Warm, Dry, Normal Color. No: Rashes Psychiatric: Present: Alert, Oriented x 3, Normal Insight, Normal Concentration Medical Decision Making ED Course and Treatment: 12/27/17 12:09 67yo male referred to ED for admission for new afib. PT denied any somatic complaint in ED. He appeared comfortable and in no distress. Labs EKG CXR Labs was reviewed and BNP of 1540 was noted. Lab was otherwise unremarkable EKG A fib with competing junctional pacemaker @ 71bpm. Twave abnormality on lateral leads. N-STEMI Chest xray LUNGS: No active pulmonary disease. PLEURA: No significant pleural effusion identified, no pneumothorax apparent. CARDIOVASCULAR: No aortic atherosclerotic calcification present. Mild cardiomegaly no pulmonary vascular congestion. OSSEOUS STRUCTURES: No significant abnormalities. VISUALIZED UPPER ABDOMEN: Normal. OTHER FINDINGS: None. IMPRESSION: No active disease. 12/27/17 12:[address] Cortés and he recommends that pt be admitted to Dr. Turk. States he will speak with Dr. Turk himself. Dr. Cortés also saw pt in ED by the bedside. - RAD Interpretation Radiology Orders: 12/27/17 10:40 CHEST PORTABLE [RAD] Stat Disposition/Present on Arrival - Present on Arrival Any Indicators Present on Arrival: No History of DVT/PE: No History of Uncontrolled Diabetes: No Urinary Catheter: No History of Decub. Ulcer: No History Surgical Site Infection Following: None - Disposition Have Diagnosis and Disposition been Completed?: Yes Diagnosis: New onset a-fib Disposition: HOSPITALIZED Disposition Time: 12:00 Patient Plan: Admission Patient Problems: Current Active Problems Problem Status Onset New onset a-fib Acute Condition: FAIR
[2017-12-27 11:31] LABS: VENOUS BLOOD GAS BASE EXCESS -1.4 mmol/L (0.0-2.0); VENOUS BLOOD GAS PO2 36 mm/Hg (30-55); VENOUS BLOOD PH 7.29 (7.32-7.43)
[2017-12-27 11:38] LABS: BASO # 0.02 K/mm3 (0.0-2.0); BASO % 0.4 % (0.0-3.0); EOS # 0.1 (0.0-0.7); EOS % 2.2 % (1.5-5.0); GRAN # 3.55 (1.4-6.5); GRAN % 63.9 % (50.0-68.0); HEMOGLOBIN 12.3 g/dL (14.0-18.0); LYMPH # 1.5 (1.2-3.4); LYMPH % 26.1 % (22.0-35.0); MEAN CELL VOLUME 89.8 fl (80.0-105.0); MEAN CORPUSCULAR HEMOGLOBIN 29.1 pg (25.0-35.0); MEAN CORPUSCULAR HGB CONC 32.4 g/dl (31.0-37.0); MEAN PLATELET VOLUME 10.5 fl (7.0-11.0); MONO # 0.4 (0.1-0.6); MONO % 7.4 % (1.0-6.0); RBC 4.23 10^6/uL (3.5-6.1); WHITE BLOOD COUNT 5.6 10^3/uL (4.5-11.0)
[2017-12-27 11:46] LABS: ALB/GLOB RATIO 1.1 (1.1-1.8); ALT/SGPT 41 U/L (7-56); AST/SGOT 40 U/L (17-59); BLOOD UREA NITROGEN 17 mg/dL (7-21); CALCIUM 9.4 mg/dL (8.4-10.5); GFR NON-AFRICAN AMERICAN > 60
--- NOTE | 2017-12-27 11:47 | RAD ---
Date of service: 12/27/2017 HISTORY: admission COMPARISON: 05/30/2017 FINDINGS: LUNGS: No active pulmonary disease. PLEURA: No significant pleural effusion identified, no pneumothorax apparent. CARDIOVASCULAR: No aortic atherosclerotic calcification present. Mild cardiomegaly no pulmonary vascular congestion. OSSEOUS STRUCTURES: No significant abnormalities. VISUALIZED UPPER ABDOMEN: Normal. OTHER FINDINGS: None. IMPRESSION: No active disease.
[2017-12-27 11:50] LABS: INR 1.09; PROTHROMBIN TIME 12.6 SECONDS (9.4-12.5)
[2017-12-27 11:57] LABS: B-TYPE NATRIURETIC PEPTIDE 1590 pg/mL (0-450); TROPONIN I 0.03 ng/mL
[2017-12-27 14:51] VITALS: BMI 33.2
[2017-12-27] MEDS ORDERED: Pneumococcal 23-Valent Vaccine IM ONE (14:51)
[2017-12-27] MEDS ORDERED: Influenza Vaccine 60 mcg/0.5 mL SYR (4YR UP) IM ONE (14:51)
[2017-12-27] MEDS: Insulin Reg-MEDIUM-Coverage SC SCH ×2 (16:32→22:30)
--- NOTE | 2017-12-27 19:26 | CARD ---
APPROVED REPORT Date of service: 12/27/2017 EKG Measurement Heart [id number] <Conclusion> Atrial fibrillation with a competing junctional pacemaker Left anterior fascicular block Anterior infarct, age undetermined T wave abnormality, consider lateral ischemia or digitalis effect Abnormal ECG
--- NOTE | 2017-12-27 21:46 | HP ---
DATE OF EXAM: 12/27/2017 HISTORY OF PRESENT ILLNESS: He comes from a subacute rehab, the patient of Dr. Cortés, he asked me to take care of him. He is a 67-year-old man who presents with shortness of breath, atrial fibrillation, this is happening at cardiac rehab and he is now here in [facility] on the telemetry floor. He is status post getting a cardiac stent. No chest pain. No cough. No palpitations. No sweating. No nausea or vomiting. PAST MEDICAL HISTORY: He has a past medical history of high cholesterol, hypertension, BPH, and coronary artery disease, status post three stents. He wears glasses. He had bilateral knee arthritis. He has got gout. He has prostate cancer, he is under treatment. FAMILY HISTORY: There is hypertension in the family. SOCIAL HISTORY: He is a former smoker. No alcohol. No drugs. 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 ALLERGIES: HE HAS AN ALLERGY TO ENALAPRIL, HE HAD ANGIOEDEMA. MEDICATIONS: He is on Flomax, Apresoline, Coreg, Proscar, Lipitor, vitamin D3 and metformin for diabetes. REVIEW OF SYSTEMS: He is comfortable, resting in bed. No acute vision or hearing changes. No sore throat. No neck pain. No chest pain or palpitations. He was short of breath intermittently. No cough. No nausea, vomiting, constipation, or diarrhea. No abdominal pain. Extremities, he can move all four extremities. No skin issues. Not anxious. PHYSICAL EXAMINATION: VITAL SIGNS: He has a 98.6 temperature, pulse 68 and irregular rate, 138/72 blood pressure, 18 respiratory rate, and 96% O2 sat. GENERAL: He is well appearing, nontoxic, comfortable, resting in bed, alert and oriented x3. HEENT: His head is atraumatic and normocephalic. Extraocular muscles are intact. Pupils are equal and reactive to light and accommodation. Throat is moist. NECK: Supple. Thyroid midline. No palpable appreciable lymphadenopathy. HEART: Irregular rate. Normal S1 and S2. LUNGS: Decreased breath sounds, but clear to auscultation bilaterally. No wheezes. No rhonchi. No rales. ABDOMEN: Morbidly obese, soft, and nontender. Positive bowel sounds. No guarding. No rebound. No CVA tenderness. EXTREMITIES: Have no edema. He can move all four extremities. GCS of 15. Cranial nerves II through XII grossly intact. Normal speech. Tongue is midline. SKIN: Warm and dry. No apparent rashes or ulcers appreciated. NEUROLOGIC: Alert and oriented x3. LABORATORY DATA: He had a chest x-ray that showed no active disease. He had a white count of 5.6, hemoglobin of 12.3, hematocrit of 38, and platelets are 164,000. INR is 1.09. Lactate was 1.9. Sodium 139, potassium 4.6, BUN 17, creatinine 1, GFR is greater than 60, sugar is 141, calcium is 9.4, magnesium 1.8, and total bili is . AST is 40, ALT is 41, alk phos 98, total creatinine kinase is 78, and lactate dehydrogenase is 453. Troponin I is 0.03. BNP is 1590, quite high. Total protein 7.5 and albumin is 4. BNP is nilson high. Chest x-ray is clear, clinically does not examine the CHF. ASSESSMENT AND PLAN: He will have a consult with Dr. Jt Cortés for atrial fibrillation. He is on Ecotrin, Eliquis, Lipitor, and Plavix. He was taken Apresoline, Coreg, aspirin, Flomax, metformin, atorvastatin, Plavix, pravastatin, Proscar, Viagra, vitamin D3 and Zyloprim. I will add few of these medications and he is here for atrial fibrillation as per Dr. Cortés, Cardiology, he is on telemetry Thank you very much. Ramón Turk DO MTDDolly
[2017-12-28 06:56] LABS: HEMOGLOBIN 11.7 g/dL (14.0-18.0); MEAN CELL VOLUME 89.3 fl (80.0-105.0); MEAN CORPUSCULAR HEMOGLOBIN 28.5 pg (25.0-35.0); MEAN CORPUSCULAR HGB CONC 31.9 g/dl (31.0-37.0); MEAN PLATELET VOLUME 10.3 fl (7.0-11.0); RBC 4.11 10^6/uL (3.5-6.1); RED CELL DISTRIBUTION WIDTH 16.2 % (11.5-14.5); WHITE BLOOD COUNT 5.5 10^3/uL (4.5-11.0)
[2017-12-28 07:55] LABS: ALB/GLOB RATIO 1.2 (1.1-1.8); ALBUMIN 3.6 g/dL (3.0-4.8); ALT/SGPT 39 U/L (7-56); AST/SGOT 37 U/L (17-59); BLOOD UREA NITROGEN 15 mg/dL (7-21); CALCIUM 9.4 mg/dL (8.4-10.5); GFR NON-AFRICAN AMERICAN > 60
[2017-12-28 08:02] VITALS: RESP 20; TEMP 98.3
--- NOTE | 2017-12-28 08:17 | CON ---
DATE: 12/27/2017 CARDIOLOGY CONSULTATION HISTORY: The patient is a 67-year-old male who presents with new onset atrial fibrillation while exercising in cardiac rehab. PAST MEDICAL HISTORY: Includes multivessel PTCA and stent with the latest being 04/2017 where he underwent PTCA and stent of a mid circumflex 80% lesion with a 3.5 drug-eluting stent. He has a documented ischemic dilated cardiomyopathy with an EF of 20-25%. The patient denies angina, denies shortness of breath. In addition, the patient suffers from hypercholesterolemia as well as diabetes mellitus and hypertension. SOCIAL HISTORY: The patient does not smoke. REVIEW OF SYSTEMS: Fourteen-point review of systems is reviewed in detail. No additional symptoms were elicited. PHYSICAL EXAMINATION: VITAL SIGNS: Blood pressure is 107/37, heart rate is atrial fibrillation in the 60s. NECK: Negative JVD. LUNGS: Without rales. HEART: S1, S2. EXTREMITIES: Without edema. EKG shows atrial fibrillation with nonspecific ST-T changes. LABORATORY DATA: Hemoglobin is 12.3. Chemistries, BUN and creatinine are unremarkable. The glucose is 141. Troponins are negative x1. The ProBNP is 1590. IMPRESSION: 1. New onset atrial fibrillation. 2. Ischemic dilated cardiomyopathy. 3. Multivessel coronary artery disease with percutaneous transluminal coronary angioplasty and stent of the circumflex artery in 04/2017. 4. Diabetes mellitus. 5. Hypercholesterolemia. 6. Hypertension. Given these findings, the patient will need to be started on anticoagulation. We will start the patient on Eliquis. There is no history of bleeding according to the patient and family. Currently, his heart rate is well controlled. I have discussed with the family about the need for cardiac risk reduction program. Jt Cortés MD
[2017-12-28] MEDS: Insulin Reg-MEDIUM-Coverage SC SCH (08:58)
[2017-12-28 09:06] VITALS: BP 144/94; O2SAT 93
--- NOTE | 2017-12-28 09:37 | DS ---
HISTORY OF PRESENT ILLNESS: He had new onset of AFib, ischemic dilated cardiomyopathy, multivessel coronary artery disease, a percutaneous transluminal coronary angioplasty and stent of the circumflex artery in 04/2017, diabetes, high cholesterol, hypertension. He is on Eliquis now. I am hoping he can possibly be discharged today. MEDICATIONS: He is on Ecotrin, Eliquis, insulin, Lipitor, Plavix. I will discuss with Dr. Cortés, the filter operator if there are any contraindications to his diabetes medications. He slept well. No chest pain or shortness of breath. No abdominal pain. He is eating well. PHYSICAL EXAMINATION: VITAL SIGNS: He has 98.3 temperature, 86 pulse, 125/86 blood pressure, 20 respiratory rate, 90% O2 sat in room air. HEENT: His head is atraumatic, normocephalic. HEART: Regular rate. LUNGS: Clear to auscultation. ABDOMEN: Soft, obese, nontender. EXTREMITIES: No edema. LABORATORY DATA: He has a 5.5 white count, 11.7 hemoglobin, 36.7 hematocrit, 153,000 platelets. He has a 139 sodium, potassium 4.4, BUN 50, creatinine 1, GFR is greater than 60, sugar is 138, calcium is 9.4. Total bili is 1.3, AST is 37, ALT is 39, alk phos 96, total protein 6.7. He is here for new onset AFib rate controlled, on Eliquis, Lipitor, Plavix. I will see what Dr. Cortés wants to do, if he wants to do anything else, otherwise I think he might be able to be discharged today, that is my plan. Ramón Turk DO
--- NOTE | 2017-12-28 11:00 | PN ---
DATE: 12/28/2017 SUBJECTIVE: The patient is asymptomatic. PHYSICAL EXAMINATION: VITAL SIGNS: Blood pressure 144/94 with heart rate in the 80s and first-degree heart block with occasional blocked APCs. NECK: Negative JVD. LUNGS: Without rales. HEART: Reveals S1, S2. EXTREMITIES: Without edema. LABORATORY DATA: Hemoglobin is 11.7. Chemistries, BUN and creatinine unremarkable. The glucose is 138. IMPRESSION: 1. Paroxysmal atrial fibrillation. 2. Stable angina. 3. Coronary artery disease. 4. Diabetes mellitus. 5. Hypercholesterolemia. Given these findings, the patient tolerated anticoagulation with Eliquis. The patient is stable and can be discharged on Eliquis and Plavix. The aspirin has been stopped. I had an extensive discussion with the patient about stopping the aspirin and just continuing Eliquis 5 b.i.d. along with the Plavix. I have discussed with the patient and his daughter about the need for cardiac risk reduction program. As an outpatient, if his ejection fraction remains low, we will consider a defibrillator placement. This was discussed with the patient and daughter in detail. Jt Cortés MD
[2017-12-28 11:45] VITALS: PULSE 80
== END 2017-12-28 12:53 | disposition home or self-care (01) ==
LOC: ED 10:20 → ERH 12:02 → INTOOBSV 12:02 → ERH 13:05 → 2RNO 14:04
PROVIDERS: ADMIT Family Medicine; ATTEND Family Medicine
DX: I48.0 Paroxysmal atrial fibrillation (principal); I25.118 Atherosclerotic heart disease of native coronary artery with other forms of angina pectoris; I42.0 Dilated cardiomyopathy; I25.5 Ischemic cardiomyopathy; C61 Malignant neoplasm of prostate; I10 Essential (primary) hypertension; E11.9 Type 2 diabetes mellitus without complications; N40.0 Benign prostatic hyperplasia without lower urinary tract symptoms; E78.00 Pure hypercholesterolemia, unspecified; M17.0 Bilateral primary osteoarthritis of knee; M10.9 Gout, unspecified; Z87.891 Personal history of nicotine dependence; Z95.5 Presence of coronary angioplasty implant and graft
CPT/HCPCS: 36415; 71045; 80053; 82550; 82803; 82948; 83615; 83735; 83880; 84484; 85025; 85027; 85610; 85730; 93005; 99285; G0378

== ENCOUNTER 2018-01-08 09:42 | Emergency (ER) | payer MEDICARE, OTHER ==
[2018-01-08 09:43] VITALS: BMI 33.2
--- NOTE | 2018-01-08 10:17 | ED PDOC ---
Arrival/HPI - General Chief Complaint: Flu-like Symptoms Time Seen by Provider: 01/08/18 10:08 Historian: Patient, Family - History of Present Illness Narrative History of Present Illness (Text): 01/08/18 10:15 67 year old male, whose past medical history includes dyslipdemia, hypertension, BPH, CAD s/p 3 stents (2017), arthritis, and Gout, presents to the emergency department complaining of cold like symptoms for the past 2 weeks. Patient states that he received a flu shot 2 weeks ago and ever since then he has been feeling sick with associated mucous, body aches, and a sore throat. Patient denies fevers, headache, dizziness, chest pain, shortness of breath, dyspnea on exertion, abdominal pain, nausea, vomiting, diarrhea, or any other complaint. Time/Duration: > week Symptom Course: Unchanged Activities at Onset: Light Context: Home Past Medical History - Provider Review Nursing Documentation Reviewed: Yes - Infectious Disease Hx of Infectious Diseases: None - Tetanus Immunization Tetanus Immunization: Unknown - Cardiac Hx Cardiac Disorders: Yes Hx Hypertension: Yes Hx Pacemaker: No - Pulmonary Hx Respiratory Disorders: Yes (SMOKED CIGARETTES QUIT 2012./2 PPD.) Hx Pneumonia: Yes Hx Sleep Apnea: Yes (NEEDS ANOTHER STUDY) - Neurological Hx Neurological Disorder: No - HEENT Hx HEENT Disorder: Yes Other/Comment: glasses. - Renal Hx Renal Disorder: No - Endocrine/Metabolic Hx Endocrine Disorders: No - Hematological/Oncological Hx Blood Disorders: No - Integumentary Hx Dermatological Disorder: No - Musculoskeletal/Rheumatological Hx Musculoskeletal Disorders: Yes Hx Arthritis: Yes (Bilateral Knee) Hx Falls: No Hx Gout: Yes - Gastrointestinal Hx Gastrointestinal Disorders: No - Genitourinary/Gynecological Hx Genitourinary Disorders: Yes Hx Prostate Problems: Yes (prostate ca (under treatment)) - Psychiatric Hx Psychophysiologic Disorder: No Hx Emotional Abuse: No Hx Physical Abuse: No Hx Substance Use: No - Surgical History Hx Cardiac Catheterization: Yes Hx Coronary Stent: Yes (x3) - Anesthesia Hx Anesthesia: Yes Hx Anesthesia Reactions: No Hx Malignant Hyperthermia: No - Suicidal Assessment Feels Threatened In Home Enviroment: No Family/Social History - Physician Review Nursing Documentation Reviewed: Yes Family/Social History: No Known Family HX Smoking Status: Former Smoker Hx Alcohol Use: Yes (OCCASIONAL BEER,WHISKEY,VODKA) Hx Substance Use: No Allergies/Home Meds Allergies/Adverse Reactions: Allergies enalapril Allergy (Intermediate, Verified 12/27/17 12:50) ANGIOEDEMA Home Medications: Home Meds Medication Instructions Recorded Confirmed Tamsulosin [Flomax] 0.4 mg PO BID 06/09/14 12/27/17 hydrALAZINE [Apresoline] 25 mg PO TID 06/09/14 12/27/17 Finasteride [Proscar] 5 mg PO DAILY 07/11/16 12/27/17 Allopurinol [Zyloprim] 100 mg PO DAILY 12/27/17 12/27/17 Atorvastatin [Lipitor] 40 mg PO DAILY 12/27/17 12/27/17 Cholecalciferol (Vitamin D3) 2,000 unit PO DAILY 12/27/17 12/27/17 [Vitamin D3] Sildenafil Citrate [Viagra] 50 mg PO PRN PRN 12/27/17 12/27/17 metFORMIN [glucOPHAGE] 500 mg PO BID 12/27/17 12/27/17 Review of Systems - Physician Review All systems were reviewed & negative as marked: Yes - Review of Systems Constitutional: Other (generalized body aches). absent: Fevers Eyes: absent: Vision Changes ENT: Sore Throat Respiratory: Sputum. absent: SOB Cardiovascular: absent: Chest Pain Gastrointestinal: absent: Abdominal Pain, Diarrhea, Nausea, Vomiting Skin: absent: Rash Neurological: absent: Headache, Dizziness Physical Exam - Physical Exam Narrative Physical Exam (Text): 01/08/18 10:15 Gen: VS reviewed, alert, well developed, well nourished, nontoxic, mild distress. ENT: post nasal drip. Eye: EOMI, PERRL. Neck: no JVD, supple, no adenopathy. CV: regular rate, regular rhythm, no rubs, no murmur, no gallops, S1, S2, pulses equal and strong. Pulm: no distress, clear to auscultation, no wheeze, no rhonchi, breath sounds equal, no rales. Abd: soft, nontender, no guarding, no rebound, no rigidity, normal bowel sounds. Ext: no edema. Skin: good color, no rash, no cyanosis. Psych: responds appropriately to questions, normal affect. Neuro: oriented x 3, CN2-12 intact grossly, motor intact, sensation intact. Vital Signs Reviewed: Yes Vital Signs Pulse Resp BP Pulse Ox 01/08/18 09:43 82 18 136/93 H 96 Temperature: Afebrile Blood Pressure: Normal Pulse: Regular Respiratory Rate: Normal Appearance: Positive for: Well-Appearing, Non-Toxic, Comfortable Pain Distress: None Mental Status: Positive for: Alert and Oriented X 3 Medical Decision Making ED Course and Treatment: 01/08/18 10:16 Impression: 67 year old male who presents to the emergency department complaining of a cold, mucous, body aches, and a sore throat. Plan: -- CXR -- Rapid Flu A/B -- Reassess and disposition Prior Visits: Notes and results from previous visits were reviewed. Progress Notes: - RAD Interpretation Narrative RAD Interpretations (Text): 01/08/18 12:08 cxr my read: no focal infiltrate, no ptx ,no pleural effusion 01/08/18 12:54 Chest X-ray reviewed by radiologist, shows: IMPRESSION: No active disease. Collections Representative: ED Physician, Radiologist - EKG Interpretation EKG Interpretation (Text): 01/08/18 11:24 [id number]: atrial fibrillation at 90 bpm, nonspecific intraventricular conduction delay, lafb, lateral t wave abn Interpreted by ED Physician: Yes - Scribe Statement The provider has reviewed the documentation as recorded by the Penelope Maharaj Provider Scribe Attestation: All medical record entries made by the Scribe were at my direction and personally dictated by me. I have reviewed the chart and agree that the record accurately reflects my personal performance of the history, physical exam, medical decision making, and the department course for this patient. I have also personally directed, reviewed, and agree with the discharge instructions and disposition. Disposition/Present on Arrival - Present on Arrival Any Indicators Present on Arrival: No History of DVT/PE: No History of Uncontrolled Diabetes: No Urinary Catheter: No History of Decub. Ulcer: No History Surgical Site Infection Following: None - Disposition Have Diagnosis and Disposition been Completed?: Yes Diagnosis: Post-viral cough syndrome, Postnasal drip Disposition: HOME/ ROUTINE Disposition Time: 12:19 Patient Plan: Discharge Patient Problems: Current Active Problems Problem Status Onset Post-viral cough syndrome Acute Postnasal drip Acute Condition: STABLE Discharge Instructions (ExitCare): Cough in Adults Additional Instructions: Return for any new or worsening symptoms. Follow up with your primary care doctor as soon as possible. CALL TODAY TO MAKE AN APPOINTMENT. AMBREEN CARROLL JR, thank you for letting us take care of you today. Your provider was Dr. Mumtaz Keenan and you were treated for cough. The emergency medical care you received today was directed at your acute symptoms. If you were prescribed any medication, please fill it and take as directed. It may take several days for your symptoms to resolve. Return to the Emergency Department if your symptoms worsen, do not improve, or if you have any other problems. Please contact your doctor or call one of the physicians/clinics you have been referred to that are listed on the Patient Visit Information form that is included in your discharge packet. Bring any paperwork you were given at discharge with you along with any medications you are taking to your follow up visit. Our treatment cannot replace ongoing medical care by a primary care pr ovider outside of the emergency department. Thank you for allowing the [facility] team to be part of your care today. If you had an X-Ray or CT scan: A Radiologist will review the ED reading if any change in treatment is needed we will contact you. If you had a blood, urine, or wound culture: It will take several days for the results, if any change in treatment is needed we will contact you. If you had an STI test: It will take 48 hours for the results. Please call after 1 week if you have not heard back. Referrals: Charo Singh MD [Primary Care Provider] - Follow up with primary Forms: [employer] ([place])
[2018-01-08 10:18] VITALS: BP 136/93; PULSE 82; RESP 18; O2SAT 96
--- NOTE | 2018-01-08 12:42 | RAD ---
Date of service: 01/08/2018 HISTORY: cough, pneumonia COMPARISON: No prior. TECHNIQUE: Chest PA and lateral FINDINGS: LUNGS: No active pulmonary disease. PLEURA: No significant pleural effusion identified. No pneumothorax apparent. CARDIOVASCULAR: No aortic atherosclerotic calcification present. Mild cardiomegaly and aortic tortuosity no pulmonary vascular congestion. OSSEOUS STRUCTURES: No significant abnormalities. VISUALIZED UPPER ABDOMEN: Normal. OTHER FINDINGS: None. IMPRESSION: No active disease.
--- NOTE | 2018-01-08 18:57 | CARD ---
APPROVED REPORT Date of service: 01/08/2018 EKG Measurement Heart [id number] <Conclusion> Accelerated Junctional rhythm with premature ventricular complexes Left anterior fascicular block Cannot rule out small or absent R waves V1-V3, may be due to lead placement or possible septal infarct age undetermined. T wave abnormality, consider lateral ischemia Prolonged QT Abnormal ECG
== END 2018-01-08 12:41 | disposition home or self-care (01) ==
LOC: ED 09:42
DX: R05 Cough (principal); R09.82 Postnasal drip; I10 Essential (primary) hypertension; I25.10 Atherosclerotic heart disease of native coronary artery without angina pectoris; Z95.5 Presence of coronary angioplasty implant and graft; Z87.891 Personal history of nicotine dependence

== ENCOUNTER 2018-02-18 13:26 | Emergency (ER) | payer MEDICARE, OTHER ==
[2018-02-18 13:53] VITALS: BMI 32.3
--- NOTE | 2018-02-18 14:00 | ED PDOC ---
Arrival/HPI - General Historian: Patient - History of Present Illness Narrative History of Present Illness (Text): 02/18/18 13:58 67y/o M with PMHx of CHF(Last known EF of 20-25%), CAD s/p stents x 3, HTN, HLD, BPH, gout, CHETAN presents to ED with complaints of cough with white sputum production and nasal congestion thats been going on for the past 2 weeks. He had received flu shot when he experience symptoms for about a week with improvement, and then worsening after cardiac rehab. He reports he was undergoing cardiac rehab and was in contact with a nurse who had a bad cough/congestion. He hasn't been using his CPAP machine for sleep apnea. He denies any associated fevers, chills or shortness of breath related to his symptoms. Denies h/a, dizziness, cp, palpitations, bodyaches, n/v/c/d/dysuria. PMD: Dr. Charo Singh MD ([facility]) Time/Duration: Prior to Arrival Symptom Onset: Gradual Symptom Course: Unchanged Severity Level: Mild Activities at Onset: Rest <Fco Pate - Last Filed: 02/18/18 15:44> Past Medical History - Provider Review Nursing Documentation Reviewed: Yes - Infectious Disease Hx of Infectious Diseases: None - Tetanus Immunization Tetanus Immunization: Unknown - Cardiac Hx Cardiac Disorders: Yes Hx Hypertension: Yes Hx Pacemaker: No - Pulmonary Hx Respiratory Disorders: Yes (SMOKED CIGARETTES QUIT 2012.02/13 PPD.) Hx Pneumonia: Yes Hx Sleep Apnea: Yes (NEEDS ANOTHER STUDY) - Neurological Hx Neurological Disorder: No - HEENT Hx HEENT Disorder: Yes Other/Comment: glasses. - Renal Hx Renal Disorder: No - Endocrine/Metabolic Hx Endocrine Disorders: No - Hematological/Oncological Hx Blood Disorders: No - Integumentary Hx Dermatological Disorder: No - Musculoskeletal/Rheumatological Hx Musculoskeletal Disorders: Yes Hx Arthritis: Yes (Bilateral Knee) Hx Falls: No Hx Gout: Yes - Gastrointestinal Hx Gastrointestinal Disorders: No - Genitourinary/Gynecological Hx Genitourinary Disorders: Yes Hx Prostate Problems: Yes (prostate ca (under treatment)) - Psychiatric Hx Psychophysiologic Disorder: No Hx Emotional Abuse: No Hx Physical Abuse: No Hx Substance Use: No - Surgical History Hx Cardiac Catheterization: Yes Hx Coronary Stent: Yes (x3) - Anesthesia Hx Anesthesia: Yes Hx Anesthesia Reactions: No Hx Malignant Hyperthermia: No - Suicidal Assessment Feels Threatened In Home Enviroment: No <Ryland Patejayson - Last Filed: 02/18/18 15:44> Family/Social History - Physician Review Nursing Documentation Reviewed: Yes Smoking Status: Former Smoker Hx Alcohol Use: Yes (OCCASIONAL BEER,WHISKEY,VODKA) Hx Substance Use: No <Fco Pate - Last Filed: 02/18/18 15:44> Family/Social History: Unknown Family HX <Kevin David - Last Filed: 02/18/18 16:30> Allergies/Home Meds <RioFco camejo - Last Filed: 02/18/18 15:44> <Kevin David - Last Filed: 02/18/18 16:30> Allergies/Adverse Reactions: Allergies enalapril Allergy (Intermediate, Verified 12/27/17 12:50) ANGIOEDEMA Home Medications: Home Meds Medication Instructions Recorded Confirmed RX: Tamsulosin [Flomax] 0.4 mg PO BID 06/09/14 12/27/17 RX: hydrALAZINE [Apresoline] 25 mg PO TID 06/09/14 12/27/17 RX: Finasteride [Proscar] 5 mg PO DAILY 07/11/16 12/27/17 RX: Allopurinol [Zyloprim] 100 mg PO DAILY 12/27/17 12/27/17 RX: Atorvastatin [Lipitor] 40 mg PO DAILY 12/27/17 12/27/17 RX: Cholecalciferol (Vitamin D3) 2,000 unit PO DAILY 12/27/17 12/27/17 [Vitamin D3] RX: Sildenafil Citrate [Viagra] 50 mg PO PRN PRN 12/27/17 12/27/17 RX: metFORMIN [glucOPHAGE] 500 mg PO BID 12/27/17 12/27/17 Review of Systems - Review of Systems Constitutional: Normal. absent: Fevers, Night Sweats Eyes: Normal. absent: Vision Changes ENT: Sinus Congestion Respiratory: Normal, Sputum (white). absent: SOB, Wheezing Cardiovascular: Normal. absent: Chest Pain, ARIAS Gastrointestinal: Normal. absent: Constipation, Diarrhea Genitourinary Male: Normal. absent: Dysuria Musculoskeletal: Normal Skin: Normal Neurological: Normal Endocrine: Normal Hemo/Lymphatic: Normal Psychiatric: Normal <Fco Pate - Last Filed: 02/18/18 15:44> Physical Exam Temperature: Afebrile Blood Pressure: Normal Pulse: Regular Respiratory Rate: Normal Appearance: Positive for: Well-Appearing, Non-Toxic, Comfortable Pain Distress: None Mental Status: Positive for: Alert and Oriented X 3 - Systems Exam Head: Present: Atraumatic, Normocephalic Pupils: Present: PERRL Extroacular Muscles: Present: EOMI Conjunctiva: Present: Normal. No: Injected Mouth: Present: Moist Mucous Membranes Pharnyx: No: ERYTHEMA, EXUDATE, TONSILS ENLARGED Nose (Internal): Present: Boggy. No: Engorged, Edematous, Rhinorrhea, Purulent Mucous Neck: Present: Normal Range of Motion Respiratory/Chest: Present: Clear to Auscultation, Good Air Exchange. No: Respiratory Distress, Accessory Muscle Use Cardiovascular: Present: Regular Rate and Rhythm, Normal S1, S2. No: Murmurs Abdomen: No: Tenderness, Distention, Peritoneal Signs Back: Present: Normal Inspection Upper Extremity: Present: Normal Inspection. No: Cyanosis, Edema Lower Extremity: Present: Normal Inspection. No: Edema Neurological: Present: GCS=15, CN II-XII Intact, Speech Normal Skin: Present: Warm, Dry, Normal Color. No: Rashes Psychiatric: Present: Alert, Oriented x 3, Normal Insight, Normal Concentration <Fco Pate - Last Filed: 02/18/18 15:44> Vital Signs Temp Pulse Resp BP Pulse Ox 02/18/18 14:00 98 F 97 H 18 123/87 96 <Kevin David - Last Filed: 02/18/18 16:30> Medical Decision Making ED Course and Treatment: 02/18/18 14:22 Impression: 67y/o M with PMHx of CHF(Last known EF of 20-25%), CAD s/p stents x 3, HTN, HLD, BPH, gout, CHETAN presents to ED with complaints of cough/congestion that's been ongoing for about 2 weeks. Prior notes and results have been reviewed Differential diagnosis includes but is not limited to: Viral rhinitis Plan; Rapid flu Chest xray Reasses & dispo Progress Notes: <Fco Pate - Last Filed: 02/18/18 15:44> ED Course and Treatment: 02/18/18 15:01 Seen and examined with the resident. Our history and physical exam reveals an elderly gentleman complaining of a several week history of a cough productive of white sputum along with congestion and URI symptoms. There is no chest pain. No dyspnea. No fever or chills. His lung sounds are clear. - RAD Interpretation Radiology Orders: 02/18/18 14:22 CHEST PORTABLE [RAD] Stat <Kevin David - Last Filed: 02/18/18 16:30> - PA / POLICE AIDE / Resident Statement / has reviewed & agrees with the documentation as recorded. / has examined the patient and agrees with the treatment plan. <Fco Pate - Last Filed: 02/18/18 15:44> Disposition/Present on Arrival - Present on Arrival Any Indicators Present on Arrival: No History of DVT/PE: No History of Uncontrolled Diabetes: No Urinary Catheter: No History Surgical Site Infection Following: None - Disposition Have Diagnosis and Disposition been Completed?: Yes Disposition Time: 15:22 <Fco Pate - Last Filed: 02/18/18 15:44> <Kevin David - Last Filed: 02/18/18 16:30> - Disposition Diagnosis: Rhinitis Disposition: HOME/ ROUTINE Condition: GOOD Additional Instructions: Sukhwinder Lester thank you for letting us take care of you today. The emergency medical care you received today was directed at your acute symptoms. If you were prescribed any medication, please fill it and take as directed. It may take several days for your symptoms to resolve. Return to the Emergency Department if your symptoms worsen, do not improve, or if you have any other problems. Please contact your doctor or call one of the physicians/clinics you have been referred to that are listed on the Patient Visit Information form that is included in your discharge packet. Bring any paperwork you were given at discharge with you along with any medications you are taking to your follow up visit. Our treatment cannot replace ongoing medical care by a primary care provider outside of the emergency department. Prescriptions: Guaifen/Dextromethorphan/PE [Adt Robitussin [place] C[place] M-S Lq] 118 ml PO DAILY PRN #1 bottle PRN Reason: Cough Sod Chlor,Bicarb/Squeez Bottle [[place] Saline Nasal Rinse Kit] 1 each NS DAILY PRN #1 bottle PRN Reason: Cough And Congestion Referrals: Charo Singh MD [Primary Care Provider] - Follow up with primary Forms: [employer] ([place])
[2018-02-18 14:23] VITALS: RESP 18; TEMP 98
[2018-02-18 16:10] VITALS: BP 131/76; PULSE 90; O2SAT 97
--- NOTE | 2018-02-18 16:28 | RAD ---
Date of service: 02/18/2018 HISTORY: congestion COMPARISON: 01/08/2018 FINDINGS: LUNGS: No active pulmonary disease. PLEURA: No significant pleural effusion identified, no pneumothorax apparent. CARDIOVASCULAR: No aortic atherosclerotic calcification present. Mild cardiomegaly no pulmonary vascular congestion. OSSEOUS STRUCTURES: No significant abnormalities. VISUALIZED UPPER ABDOMEN: Normal. OTHER FINDINGS: None. IMPRESSION: No active disease.
== END 2018-02-18 16:21 | disposition home or self-care (01) ==
LOC: ED 13:26
DX: J31.0 Chronic rhinitis (principal); I25.10 Atherosclerotic heart disease of native coronary artery without angina pectoris; I11.0 Hypertensive heart disease with heart failure; I50.9 Heart failure, unspecified; Z87.891 Personal history of nicotine dependence